=== PATIENT | male | born 1940 | race Caucasian/White ===

== ENCOUNTER 2017-07-27 20:54 | Emergency (ER) | payer MEDICARE ==
[2017-07-27 21:45] LABS: BASOPHILS % (AUTO) 0.3 % (0.0-5.0); EOSINOPHILS % (AUTO) 0.6 % (0.0-8.0); HEMATOCRIT 43.1 % (42-54); LYMPHOCYTES % (AUTO) 12.7 % (21.0-51.0); MEAN CORPUSCULAR HEMOGLOBIN 31.7 pg (27.0-33.0); MEAN CORPUSCULAR HGB CONC 34.1 g/dL (32.0-36.0); MEAN CORPUSCULAR VOLUME 92.9 fL (79-99); MONOCYTES % (AUTO) 6.7 % (3.0-13.0); NEUTROPHILS % (AUTO) 79.7 % (40.0-77.0); PLATELET COUNT (AUTO) 178 K/uL (130-400); RED BLOOD CELL COUNT(AUTO) 4.65 MIL/uL (4.50-6.20); RED CELL DISTRIBUTION WIDTH 13.4 % (11.0-15.5); WHITE BLOOD COUNT (AUTO) 7.7 K/uL (4.8-10.8)
[2017-07-27 22:00] LABS: CREATININE 0.6 mg/dL (0.5-1.5); POTASSIUM 4.1 mmol/L (3.5-5.1)
[2017-07-27 22:05] LABS: ALBUMIN 3.4 g/dL (3.5-5.0); BILIRUBIN,TOTAL 1.1 mg/dL (0.2-1.0); TOTAL PROTEIN, SERUM 7.3 g/dL (6.0-8.3)
[2017-07-27 23:40] LABS: APPEARANCE,URINE Clear (CLEAR); BILIRUBIN,URINE Negative (NEGATIVE); COLOR,URINE Yellow (YELLOW); GLUCOSE, URINE (UA) Negative (NEGATIVE); KETONES,URINE 15 mg/dL (NEGATIVE); LEUKOCYTE ESTERASE ,URINE Moderate (NEGATIVE); NITRATE,URINE Negative (NEGATIVE); OCCULT BLOOD,URINE Negative (NEGATIVE); PH,URINE 5.5 (5.0-8.0); PROTEIN,URINE Negative (NEGATIVE)
[2017-07-27 23:52] LABS: BACTERIA,URINE Rare /HPF (None Seen); MUCUS,URINE Few LPF (None Seen); RBC,URINE 0-1 /HPF (0-1); SQUAMOUS EPITHELIAL CELL,UR Few /LPF (0-2)
[2017-07-28] MEDS ORDERED: MORPHINE SULFATE 4 MG/1ML SYG ONE (00:23)
== END 2017-07-28 01:40 | disposition home or self-care (01) ==
LOC: EDH 20:54
DX: K80.50 Calculus of bile duct without cholangitis or cholecystitis without obstruction (principal); J44.9 Chronic obstructive pulmonary disease, unspecified; K21.9 Gastro-esophageal reflux disease without esophagitis; I25.2 Old myocardial infarction; Z86.73 Personal history of transient ischemic attack (TIA), and cerebral infarction without residual deficits; Z98.890 Other specified postprocedural states
CPT/HCPCS: 36415; 71045; 74176; 76705; 80053; 81001; 82150; 83690; 84484; 85025; 93005; 96374; 99285; J2270

== ENCOUNTER 2017-08-03 17:44 | Inpatient (IN) | payer MEDICARE ==
[~2017-08-03] VITALS: Ht 182.9 cm; Wt 88.6 kg
[2017-08-03] MEDS ORDERED: SODIUM CHLORIDE 0.9% 500ML 500 ML IV ONE (17:48)
[2017-08-03] MEDS ORDERED: ACETAMINOPHEN EXTRA STRENGTH 500 MG TABLET ONE (17:48)
[2017-08-03] MEDS ORDERED: METOPROLOL TARTRATE 1 MG/ML 5ML VIAL IV ONE ×2 (17:52→19:44)
[2017-08-03 17:58] LABS: HEMATOCRIT 43.3 % (42-54); MEAN CORPUSCULAR HEMOGLOBIN 31.1 pg (27.0-33.0); MEAN CORPUSCULAR HGB CONC 34.2 g/dL (32.0-36.0); NUCLEATED RED BLOOD CELLS 0.1 % (0.0-0.19); PLATELET COUNT (AUTO) 211 K/uL (130-400); RED BLOOD CELL COUNT(AUTO) 4.76 MIL/uL (4.50-6.20); RED CELL DISTRIBUTION WIDTH 13.4 % (11.0-15.5); WHITE BLOOD COUNT (AUTO) 5.4 K/uL (4.8-10.8)
[2017-08-03] MEDS ORDERED: ALBUTEROL SULFATE 0.083% 2.5 MG/3 ML INH IH ONE (17:58)
[2017-08-03] MEDS ORDERED: MEROPENEM 1 GM VIAL ONE (18:05)
[2017-08-03 18:07] LABS: INR 1.41 (0.85-1.15); PARTIAL THROMBOPLASTIN TIME 28.7 SEC (26.3-35.5); PROTHROMBIN TIME 14.7 SEC (9.6-11.6)
[2017-08-03 18:23] LABS: ALANINE AMINOTRANSFERASE 108 U/L (12-78); ALBUMIN 2.5 g/dL (3.5-5.0); ASPARTATE AMINOTRANSFERASE 301 U/L (10-37); BILIRUBIN,TOTAL 3.8 mg/dL (0.2-1.0); CARBON DIOXIDE 26 mmol/L (21-32); CREATINE KINASE MB < 0.5 ng/mL (0.5-3.6); CREATINE KINASE, TOTAL 41 U/L (21-232); CREATININE 1.1 mg/dL (0.5-1.5); GLOMERULAR FILTR. RATE CALC 69 mL/min (>60); GLUCOSE,RANDOM 120 mg/dL (70-105); MYOGLOBIN 126 ng/mL (10-92); POTASSIUM 3.3 mmol/L (3.5-5.1); SODIUM SERUM 126 mmol/L (136-145); TOTAL PROTEIN, SERUM 6.7 g/dL (6.0-8.3); TROPONIN I < 0.04 ng/mL (0.00-0.06); UREA NITROGEN, BLOOD 10 mg/dL (7-18)
[2017-08-03 18:24] LABS: BAND NEUTROPHILS % (MANUAL) 32 % (0-2); LYMPHOCYTES % (MANUAL) 4 % (22-44); METAMYELOCYTES % 3 % (0-0); REACTIVE LYMPHOCYTES 6 % (0-0); SEGMENTED NEUTROPHILS % 55 % (40-70)
[2017-08-03 18:25] LABS: MAN.DIFF COMMENT-IMPRESSION MANUAL DIFFERENTIAL
[2017-08-03 18:26] LABS: ABG BASE EXCESS 1.5 mmol/L (-2.0-3.0); ABG HCO3 24.1 mmol/L (21.0-28.0); ABG OXYGEN SATURATION 92.2 % (95.0-99.0); ABG PCO2 32 mmHg (35-48)
[2017-08-03 18:26] LABS: CHLORIDE 89 mmol/L (101-111)
[2017-08-03 18:51] LABS: APPEARANCE,URINE Clear (CLEAR); BILIRUBIN,URINE Small (NEGATIVE); COLOR,URINE Dark Yellow (YELLOW); GLUCOSE, URINE (UA) Negative (NEGATIVE); KETONES,URINE Trace mg/dL (NEGATIVE); LEUKOCYTE ESTERASE ,URINE Trace (NEGATIVE); NITRATE,URINE Negative (NEGATIVE); OCCULT BLOOD,URINE Negative (NEGATIVE); PH,URINE 6.5 (5.0-8.0); PROTEIN,URINE Negative (NEGATIVE)
[2017-08-03 19:09] LABS: BACTERIA,URINE Few /HPF (None Seen); RBC,URINE None Seen /HPF (0-1)
[2017-08-03] MEDS ORDERED: NOREPINEPHRINE BITARTRATE 1 MG/1 ML ML IV ONE ×2 (20:49→23:38)
[2017-08-03] MEDS ORDERED: SODIUM CHLORIDE 0.9% 250 ML IV ONE ×2 (20:50→23:39)
[2017-08-04] VITALS (27 sets, daily range): BP systolic 94–128; BP diastolic 47–81
[2017-08-04] MEDS ORDERED: SODIUM CHLORIDE 0.9% 1000ML 1,000 ML IV SCH (00:03)
[2017-08-04] MEDS ORDERED: MORPHINE SULFATE 2 MG/ML 1ML SYG IV PRN (00:15)
[2017-08-04] MEDS ORDERED: ONDANSETRON HCL 4 MG/2 ML VIAL IV PRN (00:15)
[2017-08-04] MEDS ORDERED: ACETAMINOPHEN 325 MG TAB PO PRN (00:15)
[2017-08-04] MEDS: IPRATROPIUM/ALBUTEROL SULFATE 3 ML SOLUTION IH SCH ×6 (02:06→22:08)
[2017-08-04] MEDS: SODIUM CHLORIDE 0.9% 1000ML 1,000 ML IV SCH ×4 (02:37→16:21)
[2017-08-04] MEDS: MEROPENEM 1 GM VIAL IVP SCH ×4 (02:38→23:54)
[2017-08-04 04:03] LABS: ABG BASE EXCESS -7.9 mmol/L (-2.0-3.0); ABG HCO3 16.2 mmol/L (21.0-28.0); ABG OXYGEN SATURATION 97.4 % (95.0-99.0); ABG PCO2 30 mmHg (35-48)
[2017-08-04 04:06] LABS: ALBUMIN 1.9 g/dL (3.5-5.0); BILIRUBIN,TOTAL 3.8 mg/dL (0.2-1.0); CREATININE 1.1 mg/dL (0.5-1.5); MAGNESIUM 1.1 mg/dL (1.80-2.40); PHOSPHORUS 3.3 mg/dL (2.5-4.9); TOTAL PROTEIN, SERUM 5.1 g/dL (6.0-8.3)
[2017-08-04 04:24] LABS: BASOPHILS % (AUTO) 0.3 % (0.0-5.0); HEMATOCRIT 36.8 % (42-54); LYMPHOCYTES % (AUTO) 1.1 % (21.0-51.0); MEAN CORPUSCULAR HGB CONC 33.7 g/dL (32.0-36.0); MEAN CORPUSCULAR VOLUME 91.9 fL (79-99); MONOCYTES % (AUTO) 1.8 % (3.0-13.0); NEUTROPHILS % (AUTO) 96.8 % (40.0-77.0); PLATELET COUNT (AUTO) 251 K/uL (130-400); RED CELL DISTRIBUTION WIDTH 13.6 % (11.0-15.5)
[2017-08-04 04:36] LABS: WHITE BLOOD COUNT (AUTO) 40.8 K/uL (4.8-10.8)
[2017-08-04 04:50] LABS: POTASSIUM 2.9 mmol/L (3.5-5.1)
[2017-08-04 06:04] LABS: BAND NEUTROPHILS % (MANUAL) 33 % (0-2); MAN.DIFF COMMENT-IMPRESSION MANUAL DIFFERENTIAL; METAMYELOCYTES % 10 % (0-0); MYELOCYTES % 3 % (0-0); PLATELET MORPHOLOGY COMMENT ADEQUATE; SEGMENTED NEUTROPHILS % 54 % (40-70)
[2017-08-04] MEDS ORDERED: NOREPINEPHRINE 4MG/NS 250ML 250 ML IV SCH (08:15)
[2017-08-04] MEDS ORDERED: POTASSIUM CHLORIDE 10% ELIXIR 20 MEQ/15 ML UDCUP PO PRN (08:15)
[2017-08-04] MEDS ORDERED: METOPROLOL TARTRATE 25 MG TAB PO SCH (09:00)
[2017-08-04] MEDS ORDERED: LIDOCAINE HCL 1% 20 ML VIAL ONE (09:32)
[2017-08-04] MEDS ORDERED: ISOVUE-300 100 ML VIAL IV ONE (09:34)
[2017-08-04] MEDS ORDERED: MEPERIDINE-PF 25 MG/ML SYG ONE (09:36)
[2017-08-04] MEDS: FAMOTIDINE/PF 20 MG/2 ML VIAL IV SCH ×2 (10:37→20:14)
[2017-08-04] MEDS: LIDOCAINE HCL-MPF 1% 2ML VIAL IVP PRN ×3 (10:37→20:14)
[2017-08-04] MEDS: MAGNESIUM 2GM PREMIX 50ML 50 ML IV PRN (10:37)
[2017-08-04] MEDS: POTASSIUM CHLORIDE 20MEQ/100ML 100 ML IV PRN ×3 (10:38→20:14)
[2017-08-04] MEDS ORDERED: TYL3 PO (11:46)
[2017-08-04] MEDS ORDERED: MULT-1224 PO (11:46)
[2017-08-04] MEDS ORDERED: OMEP20CA10 PO (11:46)
[2017-08-04] MEDS ORDERED: FLUT15.88 NS (11:46)
[2017-08-04] MEDS ORDERED: MOME0.13 IH (11:46)
[2017-08-04] MEDS ORDERED: ASPI81TA40 PO (11:46)
[2017-08-04] MEDS ORDERED: ROPI0.5T5 PO (11:46)
[2017-08-04] MEDS ORDERED: VIT1CAPS47 PO (11:46)
[2017-08-04] MEDS ORDERED: FLUT250D3 IH (11:46)
[2017-08-04] MEDS ORDERED: APIX5TAB4 PO (11:46)
[2017-08-04] MEDS ORDERED: ALBU2.5V2 IH (11:46)
[2017-08-04] MEDS ORDERED: DOXA8TAB81 PO (11:46)
[2017-08-04] MEDS ORDERED: CHOL200013 PO (11:46)
[2017-08-04] MEDS: ENOXAPARIN SODIUM 100 MG/1 ML SQ SCH (20:16)
[2017-08-05] VITALS (20 sets, daily range): BP systolic 89–140; BP diastolic 43–101
[2017-08-05] MEDS: SODIUM CHLORIDE 0.9% 1000ML 1,000 ML IV SCH ×2 (01:59→12:16)
[2017-08-05] MEDS: IPRATROPIUM/ALBUTEROL SULFATE 3 ML SOLUTION IH SCH ×6 (02:01→21:51)
[2017-08-05 04:02] LABS: BASOPHILS % (AUTO) 0.1 % (0.0-5.0); EOSINOPHILS % (AUTO) 0.1 % (0.0-8.0); HEMATOCRIT 30.9 % (42-54); MEAN CORPUSCULAR HEMOGLOBIN 32.1 pg (27.0-33.0); MEAN CORPUSCULAR VOLUME 91.8 fL (79-99); MONOCYTES % (AUTO) 3.8 % (3.0-13.0); PLATELET COUNT (AUTO) 208 K/uL (130-400); RED BLOOD CELL COUNT(AUTO) 3.37 MIL/uL (4.50-6.20); RED CELL DISTRIBUTION WIDTH 13.6 % (11.0-15.5); WHITE BLOOD COUNT (AUTO) 21.3 K/uL (4.8-10.8)
[2017-08-05 04:15] LABS: ALBUMIN 1.6 g/dL (3.5-5.0); BILIRUBIN,TOTAL 1.3 mg/dL (0.2-1.0); CREATININE 0.8 mg/dL (0.5-1.5); MAGNESIUM 1.6 mg/dL (1.80-2.40); POTASSIUM 3.2 mmol/L (3.5-5.1); TOTAL PROTEIN, SERUM 4.6 g/dL (6.0-8.3)
[2017-08-05] MEDS: LIDOCAINE HCL-MPF 1% 2ML VIAL IVP PRN (04:34)
[2017-08-05] MEDS: POTASSIUM CHLORIDE 20MEQ/100ML 100 ML IV PRN ×2 (04:34→09:52)
[2017-08-05] MEDS: MAGNESIUM 2GM PREMIX 50ML 50 ML IV PRN (09:51)
[2017-08-05] MEDS: FAMOTIDINE/PF 20 MG/2 ML VIAL IV SCH ×2 (09:53→20:07)
[2017-08-05] MEDS: AMIODARONE HCL 200 MG TABLET PO SCH ×2 (09:53→20:07)
[2017-08-05] MEDS: MEROPENEM 1 GM VIAL IVP SCH (09:53)
[2017-08-05] MEDS: ENOXAPARIN SODIUM 100 MG/1 ML SQ SCH ×2 (09:54→20:07)
[2017-08-05] MEDS: MAGNESIUM 2GM PREMIX 50ML 50 ML IV SCH (13:45)
[2017-08-05] MEDS ORDERED: CEFTRIAXONE 2GM+NS 100ML 100 ML IV SCH (16:00)
[2017-08-05] MEDS: CEFTRIAXONE SODIUM 2 GM VIAL IVP SCH (16:57)
[2017-08-06 04:08] LABS: BASOPHILS % (AUTO) 0.2 % (0.0-5.0); EOSINOPHILS % (AUTO) 0.4 % (0.0-8.0); HEMATOCRIT 37.7 % (42-54); LYMPHOCYTES % (AUTO) 7.3 % (21.0-51.0); MEAN CORPUSCULAR HEMOGLOBIN 31.1 pg (27.0-33.0); MEAN CORPUSCULAR HGB CONC 34.5 g/dL (32.0-36.0); MEAN CORPUSCULAR VOLUME 90.2 fL (79-99); MONOCYTES % (AUTO) 3.1 % (3.0-13.0); PLATELET COUNT (AUTO) 242 K/uL (130-400); RED BLOOD CELL COUNT(AUTO) 4.18 MIL/uL (4.50-6.20); RED CELL DISTRIBUTION WIDTH 13.8 % (11.0-15.5); WHITE BLOOD COUNT (AUTO) 13.1 K/uL (4.8-10.8)
[2017-08-06 04:16] LABS: CREATININE 0.8 mg/dL (0.5-1.5); MAGNESIUM 1.7 mg/dL (1.80-2.40); PHOSPHORUS 1.4 mg/dL (2.5-4.9); POTASSIUM 3.4 mmol/L (3.5-5.1)
[2017-08-06] MEDS: POTASSIUM CHLORIDE 20 MEQ ERTAB PO PRN ×2 (05:38→09:11)
[2017-08-06] MEDS: IPRATROPIUM/ALBUTEROL SULFATE 3 ML SOLUTION IH SCH ×5 (06:26→21:41)
[2017-08-06 07:42] VITALS: BP 123/75
[2017-08-06] MEDS ORDERED: AMIODARONE HCL 150 MG in DEXTROSE 5%-WATER 100 ML IV SCH (07:45)
[2017-08-06] MEDS ORDERED: AMIODARONE HCL 900 MG in DEXTROSE 5%-WATER 500 ML IV SCH (07:45)
[2017-08-06] MEDS: AMIODARONE HCL 200 MG TABLET PO SCH ×2 (09:11→21:55)
[2017-08-06] MEDS: FAMOTIDINE/PF 20 MG/2 ML VIAL IV SCH ×2 (09:11→21:55)
[2017-08-06] MEDS: MAGNESIUM 2GM PREMIX 50ML 50 ML IV SCH (09:12)
[2017-08-06] MEDS: ENOXAPARIN SODIUM 100 MG/1 ML SQ SCH ×2 (09:13→21:56)
[2017-08-06 11:15] VITALS: BP 119/61
[2017-08-06 16:22] VITALS: BP 104/61
[2017-08-06] MEDS: CEFTRIAXONE SODIUM 2 GM VIAL IVP SCH (17:44)
[2017-08-06 19:41] VITALS: BP 119/62
[2017-08-07 03:49] VITALS: BP 129/68
[2017-08-07] MEDS: IPRATROPIUM/ALBUTEROL SULFATE 3 ML SOLUTION IH SCH ×5 (06:56→21:59)
[2017-08-07 07:42] VITALS: BP 127/73
[2017-08-07 11:31] VITALS: BP 93/61
[2017-08-07] MEDS: MAGNESIUM 2GM PREMIX 50ML 50 ML IV SCH (13:45)
[2017-08-07] MEDS: CEFTRIAXONE SODIUM 2 GM VIAL IVP SCH (15:47)
[2017-08-07] MEDS: FAMOTIDINE/PF 20 MG/2 ML VIAL IV SCH ×2 (15:48→20:21)
[2017-08-07] MEDS: AMIODARONE HCL 200 MG TABLET PO SCH ×2 (15:48→20:21)
[2017-08-07 16:30] VITALS: BP 100/62
[2017-08-07] MEDS: APIXABAN 5 MG TABLET PO SCH (20:21)
[2017-08-07 20:29] VITALS: BP 126/71
[2017-08-08 03:49] LABS: HEMATOCRIT 36.9 % (42-54); MEAN CORPUSCULAR HEMOGLOBIN 30.9 pg (27.0-33.0); MEAN CORPUSCULAR VOLUME 90.7 fL (79-99); NUCLEATED RED BLOOD CELLS 0.1 % (0.0-0.19); PLATELET COUNT (AUTO) 233 K/uL (130-400); RED BLOOD CELL COUNT(AUTO) 4.06 MIL/uL (4.50-6.20); RED CELL DISTRIBUTION WIDTH 13.7 % (11.0-15.5)
[2017-08-08 03:56] LABS: ALBUMIN 1.7 g/dL (3.5-5.0); BILIRUBIN,TOTAL 0.5 mg/dL (0.2-1.0); CREATININE 0.7 mg/dL (0.5-1.5); MAGNESIUM 1.4 mg/dL (1.80-2.40); POTASSIUM 3.6 mmol/L (3.5-5.1); TOTAL PROTEIN, SERUM 4.8 g/dL (6.0-8.3)
[2017-08-08] MEDS: IPRATROPIUM/ALBUTEROL SULFATE 3 ML SOLUTION IH SCH ×5 (06:39→21:52)
[2017-08-08 07:44] VITALS: BP 127/60
[2017-08-08] MEDS ORDERED: APIXABAN 2.5 MG TABLET PO ONE (08:37)
[2017-08-08] MEDS: APIXABAN 5 MG TABLET PO SCH ×2 (09:00→21:49)
[2017-08-08] MEDS: AMIODARONE HCL 200 MG TABLET PO SCH (09:06)
[2017-08-08] MEDS: FAMOTIDINE/PF 20 MG/2 ML VIAL IV SCH ×2 (09:06→21:49)
[2017-08-08] MEDS: POTASSIUM CHLORIDE 20 MEQ ERTAB PO PRN (09:11)
[2017-08-08 11:32] VITALS: BP 111/61
[2017-08-08] MEDS: DILTIAZEM HCL 120 MG CAP.SR.24H PO SCH (11:44)
[2017-08-08] MEDS: MAGNESIUM 2GM PREMIX 50ML 50 ML IV SCH (13:45)
[2017-08-08 16:17] VITALS: BP 113/59
[2017-08-08] MEDS: FUROSEMIDE 40 MG TABLET PO SCH (17:41)
[2017-08-08] MEDS: CEFTRIAXONE SODIUM 2 GM VIAL IVP SCH (17:41)
[2017-08-08 19:36] VITALS: BP 128/73
[2017-08-08] MEDS: METRONIDAZOLE 500MG/100ML BAG 100 ML IV SCH (21:49)
[2017-08-08 23:18] VITALS: BP 121/57
[2017-08-09 03:35] VITALS: BP 124/67
[2017-08-09 04:58] LABS: HEMATOCRIT 37.7 % (42-54); MEAN CORPUSCULAR HEMOGLOBIN 30.7 pg (27.0-33.0); MEAN CORPUSCULAR HGB CONC 33.7 g/dL (32.0-36.0); MEAN CORPUSCULAR VOLUME 91.1 fL (79-99); PLATELET COUNT (AUTO) 242 K/uL (130-400); RED BLOOD CELL COUNT(AUTO) 4.14 MIL/uL (4.50-6.20); RED CELL DISTRIBUTION WIDTH 14.1 % (11.0-15.5)
[2017-08-09 05:00] LABS: CREATININE 0.7 mg/dL (0.5-1.5); POTASSIUM 3.8 mmol/L (3.5-5.1)
[2017-08-09 05:25] LABS: B-TYPE NATRIURETIC PEPTIDE 173 pg/mL (0-100)
[2017-08-09] MEDS: IPRATROPIUM/ALBUTEROL SULFATE 3 ML SOLUTION IH SCH ×5 (06:37→21:58)
[2017-08-09] MEDS: METRONIDAZOLE 500MG/100ML BAG 100 ML IV SCH ×3 (06:42→22:42)
[2017-08-09 07:00] VITALS: BP 91/55
[2017-08-09] MEDS: DILTIAZEM HCL 120 MG CAP.SR.24H PO SCH (08:15)
[2017-08-09] MEDS: APIXABAN 5 MG TABLET PO SCH ×2 (08:15→20:21)
[2017-08-09] MEDS: FUROSEMIDE 40 MG TABLET PO SCH (08:16)
[2017-08-09] MEDS: FAMOTIDINE/PF 20 MG/2 ML VIAL IV SCH ×2 (08:16→20:21)
[2017-08-09] MEDS: MAGNESIUM 2GM PREMIX 50ML 50 ML IV SCH (10:53)
[2017-08-09 11:32] VITALS: BP 83/44
[2017-08-09] MEDS: CEFTRIAXONE SODIUM 2 GM VIAL IVP SCH (14:00)
[2017-08-09 16:41] VITALS: BP 99/63
[2017-08-09 20:00] VITALS: BP 114/64
[2017-08-09] MEDS: ZOLPIDEM TARTRATE 5 MG TAB PO PRN (20:21)
[2017-08-09] MEDS: LACTULOSE 20 GM/30 ML UDCUP PO SCH (21:00)
[2017-08-10] VITALS: BP 118/62
[2017-08-10] MEDS: IPRATROPIUM/ALBUTEROL SULFATE 3 ML SOLUTION IH SCH ×6 (02:00→21:45)
[2017-08-10] MEDS: METRONIDAZOLE 500MG/100ML BAG 100 ML IV SCH ×3 (06:01→22:09)
[2017-08-10] MEDS: LACTULOSE 20 GM/30 ML UDCUP PO SCH ×4 (06:02→20:32)
[2017-08-10 07:55] VITALS: BP 113/55
[2017-08-10] MEDS: MEGESTROL 400 MG/10 ML UDCUP PO SCH (08:41)
[2017-08-10] MEDS: FAMOTIDINE/PF 20 MG/2 ML VIAL IV SCH ×2 (08:42→20:31)
[2017-08-10] MEDS: FUROSEMIDE 40 MG TABLET PO SCH (08:42)
[2017-08-10] MEDS: APIXABAN 5 MG TABLET PO SCH ×2 (11:16→20:31)
[2017-08-10 11:53] VITALS: BP 92/52
[2017-08-10] MEDS: MAGNESIUM 2GM PREMIX 50ML 50 ML IV SCH (13:45)
[2017-08-10] MEDS: CEFTRIAXONE SODIUM 2 GM VIAL IVP SCH (15:26)
[2017-08-10 16:30] VITALS: BP 107/52
[2017-08-10 19:56] VITALS: BP 103/50
[2017-08-10] MEDS: ZOLPIDEM TARTRATE 5 MG TAB PO PRN (20:31)
[2017-08-10 23:59] VITALS: BP 117/59
[2017-08-11] MEDS: IPRATROPIUM/ALBUTEROL SULFATE 3 ML SOLUTION IH SCH ×4 (01:45→14:03)
[2017-08-11 04:31] VITALS: BP 108/56
[2017-08-11 05:46] LABS: HEMATOCRIT 38.5 % (42-54); MEAN CORPUSCULAR HEMOGLOBIN 31.6 pg (27.0-33.0); MEAN CORPUSCULAR HGB CONC 34.5 g/dL (32.0-36.0); MEAN CORPUSCULAR VOLUME 91.6 fL (79-99); NUCLEATED RED BLOOD CELLS 0.1 % (0.0-0.19); PLATELET COUNT (AUTO) 286 K/uL (130-400); RED BLOOD CELL COUNT(AUTO) 4.21 MIL/uL (4.50-6.20); RED CELL DISTRIBUTION WIDTH 14.1 % (11.0-15.5); WHITE BLOOD COUNT (AUTO) 7.7 K/uL (4.8-10.8)
[2017-08-11 06:02] LABS: CREATININE 0.7 mg/dL (0.5-1.5); POTASSIUM 3.5 mmol/L (3.5-5.1)
[2017-08-11] MEDS: METRONIDAZOLE 500MG/100ML BAG 100 ML IV SCH (06:53)
[2017-08-11 07:28] VITALS: BP 97/52
[2017-08-11 07:56] LABS: EOSINOPHILS % (MANUAL) 1 % (1-6); LYMPHOCYTES % (MANUAL) 12 % (22-44); MAN.DIFF COMMENT-IMPRESSION MANUAL DIFFERENTIAL; MONOCYTES % (MANUAL) 10 % (2-9); PLATELET MORPHOLOGY COMMENT ADEQUATE; REACTIVE LYMPHOCYTES 4 % (0-0); SEGMENTED NEUTROPHILS % 73 % (40-70)
[2017-08-11] MEDS: FAMOTIDINE/PF 20 MG/2 ML VIAL IV SCH (09:56)
[2017-08-11] MEDS: FUROSEMIDE 40 MG TABLET PO SCH (09:56)
[2017-08-11] MEDS: MEGESTROL 400 MG/10 ML UDCUP PO SCH (09:56)
[2017-08-11] MEDS: APIXABAN 5 MG TABLET PO SCH ×2 (09:56→15:49)
[2017-08-11 11:18] VITALS: BP 98/52
[2017-08-11] MEDS: MAGNESIUM 2GM PREMIX 50ML 50 ML IV SCH (13:45)
[2017-08-11] MEDS ORDERED: METRONIDAZOLE 500 MG TABLET PO SCH (15:30)
[2017-08-11] MEDS: CEFTRIAXONE SODIUM 2 GM VIAL IVP SCH (15:49)
[2017-08-12] MEDS ORDERED: PANTOPRAZOLE SODIUM 40 MG TABLET.DR PO SCH (09:00)
== END 2017-08-11 18:05 | DRG 871 ==
LOC: EDH 17:44 → EDHIP 20:15 → 2BH 08-04 01:42 → 2DH 08-05 18:07
PROVIDERS: ADMIT Family Medicine; ATTEND Family Medicine
PROC: 0F9430Z Drainage of Gallbladder with Drainage Device, Percutaneous Approach (ICD-10-PCS; principal; 2017-08-04)
DX: A41.51 Sepsis due to Escherichia coli [E. coli] (principal); K85.90 Acute pancreatitis without necrosis or infection, unspecified; J96.01 Acute respiratory failure with hypoxia; R65.21 Severe sepsis with septic shock; K80.66 Calculus of gallbladder and bile duct with acute and chronic cholecystitis without obstruction; E83.42 Hypomagnesemia; I47.1 Supraventricular tachycardia; E86.0 Dehydration; I48.91 Unspecified atrial fibrillation; I95.89 Other hypotension; J44.0 Chronic obstructive pulmonary disease with (acute) lower respiratory infection; N39.0 Urinary tract infection, site not specified; D64.9 Anemia, unspecified; E66.9 Obesity, unspecified; E86.1 Hypovolemia; E87.6 Hypokalemia; N40.0 Benign prostatic hyperplasia without lower urinary tract symptoms; R74.0 Nonspecific elevation of levels of transaminase and lactic acid dehydrogenase [LDH]; R26.2 Difficulty in walking, not elsewhere classified; I10 Essential (primary) hypertension; I25.10 Atherosclerotic heart disease of native coronary artery without angina pectoris; K59.00 Constipation, unspecified; K21.9 Gastro-esophageal reflux disease without esophagitis; Z68.26 Body mass index [BMI] 26.0-26.9, adult; Z86.73 Personal history of transient ischemic attack (TIA), and cerebral infarction without residual deficits; I25.2 Old myocardial infarction; Z79.01 Long term (current) use of anticoagulants; Z87.891 Personal history of nicotine dependence; Z90.49 Acquired absence of other specified parts of digestive tract; Z90.79 Acquired absence of other genital organ(s); Z99.81 Dependence on supplemental oxygen; Z79.899 Other long term (current) drug therapy; Z98.49 Cataract extraction status, unspecified eye
CPT/HCPCS: 10030; 36415; 36600; 47490; 71045; 76705; 80048; 80053; 81001; 82550; 82553; 82803; 82948; 83605; 83690; 83735; 83874; 83880; 84100; 84484; 85007; 85025; 85027; 85610; 85730; 87040; 87070; 87076; 87077; 87088; 87186; 87804; 88313; 93005; 93306; 93970; 94640; 94660; 94664; 99291; 99292; A4218; A4344; C1769; J0282; J0696; J1644; J1650; J2175; J2185; J3475; J3480; J3490; J7030; J7040; J7060; Q9967

== ENCOUNTER 2017-08-26 10:39 | Inpatient (IN) | payer MEDICARE ==
[~2017-08-26] VITALS: Ht 182.9 cm; Wt 80.7 kg
[~2017-08-26 10:39] MED LIST: ALBU2.5V2 IH; APIX5TAB4 PO; ASPI81TA40 PO; CHOL200013 PO; DOXA8TAB81 PO; FLUT15.88 NS; FLUT250D3 IH; MOME0.13 IH; MULT-1224 PO; OMEP20CA10 PO; ROPI0.5T5 PO; TYL3 PO; VIT1CAPS47 PO
[2017-08-26] MEDS ORDERED: ACETAMINOPHEN 325 MG TAB ONE (11:31)
[2017-08-26] MEDS ORDERED: KETOROLAC TROMETHAMINE 15MG/ML ONE (11:31)
[2017-08-26] MEDS ORDERED: ONDANSETRON HCL MDV 20ML 2 MG/ML VIAL ONE (11:31)
[2017-08-26] MEDS ORDERED: SODIUM CHLORIDE 0.9% 500ML 500 ML IV ONE (11:32)
[2017-08-26 11:40] LABS: BASOPHILS % (AUTO) 0.6 % (0.0-5.0); HEMATOCRIT 40.7 % (42-54); LYMPHOCYTES % (AUTO) 4.5 % (21.0-51.0); MEAN CORPUSCULAR HEMOGLOBIN 30.7 pg (27.0-33.0); MEAN CORPUSCULAR HGB CONC 34.5 g/dL (32.0-36.0); MONOCYTES % (AUTO) 7.3 % (3.0-13.0); NEUTROPHILS % (AUTO) 87.6 % (40.0-77.0); PLATELET COUNT (AUTO) 258 K/uL (130-400); RED BLOOD CELL COUNT(AUTO) 4.57 MIL/uL (4.50-6.20); RED CELL DISTRIBUTION WIDTH 14.8 % (11.0-15.5); WHITE BLOOD COUNT (AUTO) 13.3 K/uL (4.8-10.8)
[2017-08-26 11:50] LABS: CREATININE 0.8 mg/dL (0.5-1.5); POTASSIUM 3.7 mmol/L (3.5-5.1)
[2017-08-26 12:17] LABS: ALBUMIN 3.5 g/dL (3.5-5.0); BILIRUBIN,TOTAL 2.6 mg/dL (0.2-1.0); CREATINE KINASE MB 0.7 ng/mL (0.5-3.6); TOTAL PROTEIN, SERUM 7.2 g/dL (6.0-8.3)
[2017-08-26 12:21] LABS: INR 1.2 (0.85-1.15); PARTIAL THROMBOPLASTIN TIME 26.8 SEC (26.3-35.5); PROTHROMBIN TIME 12.6 SEC (9.6-11.6)
[2017-08-26] MEDS ORDERED: MEROPENEM 500 MG VIAL ONE ×2 (15:43→15:54)
[2017-08-26] MEDS ORDERED: SODIUM CHLORIDE 0.9% 50 ML IV ONE (15:45)
[2017-08-26 19:10] VITALS: BP 125/64
[2017-08-26] MEDS ORDERED: ONDANSETRON HCL MDV 20ML 2 MG/ML VIAL IVP PRN (21:45)
[2017-08-26] MEDS ORDERED: ACETAMINOPHEN 325 MG TAB PO PRN (21:45)
[2017-08-26] MEDS: MEROPENEM 500 MG VIAL IVP SCH (21:51)
[2017-08-26] MEDS: SODIUM CHLORIDE 0.9% 1000ML 1,000 ML IV SCH (21:52)
[2017-08-26 23:47] VITALS: BP 149/68
[2017-08-27] VITALS (14 sets, daily range): BP systolic 133–160; BP diastolic 55–78
[2017-08-27 05:18] LABS: HEMATOCRIT 34.7 % (42-54); MEAN CORPUSCULAR HEMOGLOBIN 31.6 pg (27.0-33.0); MEAN CORPUSCULAR HGB CONC 35.3 g/dL (32.0-36.0); MEAN CORPUSCULAR VOLUME 89.5 fL (79-99); PLATELET COUNT (AUTO) 239 K/uL (130-400); RED BLOOD CELL COUNT(AUTO) 3.87 MIL/uL (4.50-6.20); RED CELL DISTRIBUTION WIDTH 14.6 % (11.0-15.5); WHITE BLOOD COUNT (AUTO) 8.5 K/uL (4.8-10.8)
[2017-08-27 05:30] LABS: ALBUMIN 2.6 g/dL (3.5-5.0); BILIRUBIN,DIRECT 1.2 mg/dL (0.0-0.3); CREATININE 0.9 mg/dL (0.5-1.5); TOTAL PROTEIN, SERUM 6.1 g/dL (6.0-8.3)
[2017-08-27] MEDS: MEROPENEM 500 MG VIAL IVP SCH ×3 (05:57→22:09)
[2017-08-27] MEDS ORDERED: MORPHINE SULFATE 4 MG/1ML SYG ONE (06:00)
[2017-08-27] MEDS: SODIUM CHLORIDE 0.9% 1000ML 1,000 ML IV SCH ×3 (06:03→22:16)
[2017-08-27] MEDS ORDERED: ALBUTEROL SULFATE 0.083% 2.5 MG/3 ML INH IH PRN (11:30)
[2017-08-27] MEDS ORDERED: ISOVUE-370 50ML VIAL IV ONE (11:42)
[2017-08-27] MEDS ORDERED: APIXABAN 5 MG TABLET PO SCH (12:30)
[2017-08-27] MEDS ORDERED: PHENYLEPHRINE HCL 10 MG/ML 1ML VIAL IV ONE (12:31)
[2017-08-27] MEDS ORDERED: LIDOCAINE HCL 1% 20 ML VIAL ONE (12:31)
[2017-08-27] MEDS ORDERED: PROPOFOL 1000 MG/100 ML 100 ML IV ONE (12:31)
[2017-08-27] MEDS: FLUTICASONE PROPIONATE 50MCG/SPRAY 16 GM BOTTLE NS SCH (14:54)
[2017-08-27] MEDS: METRONIDAZOLE 500MG/100ML BAG 100 ML IV SCH ×2 (14:54→22:10)
[2017-08-27 15:42] LABS: BASOPHILS % (AUTO) 0.6 % (0.0-5.0); EOSINOPHILS % (AUTO) 1.4 % (0.0-8.0); HEMATOCRIT 34.7 % (42-54); MEAN CORPUSCULAR HEMOGLOBIN 31.6 pg (27.0-33.0); MEAN CORPUSCULAR HGB CONC 34.9 g/dL (32.0-36.0); MEAN CORPUSCULAR VOLUME 90.5 fL (79-99); MONOCYTES % (AUTO) 8.7 % (3.0-13.0); NEUTROPHILS % (AUTO) 70.3 % (40.0-77.0); PLATELET COUNT (AUTO) 222 K/uL (130-400); RED BLOOD CELL COUNT(AUTO) 3.84 MIL/uL (4.50-6.20); RED CELL DISTRIBUTION WIDTH 14.5 % (11.0-15.5); WHITE BLOOD COUNT (AUTO) 7.1 K/uL (4.8-10.8)
[2017-08-27] MEDS: BUDESONIDE 0.5 MG/2 ML INH IH SCH (19:25)
[2017-08-27] MEDS: METOPROLOL TARTRATE 25 MG TAB PO SCH (20:26)
[2017-08-27] MEDS: ROPINIROLE HCL 1 MG TABLET PO SCH (20:27)
[2017-08-27] MEDS: PANTOPRAZOLE SODIUM 40 MG TABLET.DR PO SCH (20:27)
[2017-08-28 04:55] VITALS: BP 142/72
[2017-08-28 05:20] LABS: ALBUMIN 2.3 g/dL (3.5-5.0); BILIRUBIN,DIRECT 0.4 mg/dL (0.0-0.3); BILIRUBIN,TOTAL 1.4 mg/dL (0.2-1.0); CREATININE 0.7 mg/dL (0.5-1.5); POTASSIUM 3.4 mmol/L (3.5-5.1); TOTAL PROTEIN, SERUM 5.5 g/dL (6.0-8.3)
[2017-08-28] MEDS: MEROPENEM 500 MG VIAL IVP SCH ×3 (05:39→21:02)
[2017-08-28] MEDS: METRONIDAZOLE 500MG/100ML BAG 100 ML IV SCH ×3 (05:39→21:02)
[2017-08-28] MEDS: BUDESONIDE 0.5 MG/2 ML INH IH SCH ×2 (06:25→18:20)
[2017-08-28] MEDS: SODIUM CHLORIDE 0.9% 1000ML 1,000 ML IV SCH (06:38)
[2017-08-28] MEDS ORDERED: PANTOPRAZOLE SODIUM 40 MG TABLET.DR PO SCH (08:00)
[2017-08-28 08:12] VITALS: BP 130/73
[2017-08-28] MEDS: PANTOPRAZOLE SODIUM 40 MG TABLET.DR PO SCH ×2 (08:31→21:03)
[2017-08-28] MEDS: ROPINIROLE HCL 1 MG TABLET PO SCH ×2 (08:31→21:03)
[2017-08-28] MEDS: ASCORBIC ACID 500 MG TAB PO SCH (08:31)
[2017-08-28] MEDS: METOPROLOL TARTRATE 25 MG TAB PO SCH ×2 (08:31→21:03)
[2017-08-28] MEDS: FLUTICASONE PROPIONATE 50MCG/SPRAY 16 GM BOTTLE NS SCH (08:32)
[2017-08-28] MEDS: ENOXAPARIN SODIUM 80 MG/0.8 ML SQ SCH ×2 (08:32→21:04)
[2017-08-28] MEDS: ***HM***(Cholecalciferol (Vitamin D3) (Vitamin D3) 2,000 UNIT) PO SCH (08:33)
[2017-08-28] MEDS: ASPIRIN 81 MG EC TAB PO SCH (08:49)
[2017-08-28] MEDS ORDERED: POTASSIUM CHLORIDE 20MEQ/100ML 100 ML IV PRN (10:30)
[2017-08-28] MEDS ORDERED: LIDOCAINE HCL-MPF 1% 2ML VIAL IVP PRN (10:30)
[2017-08-28] MEDS ORDERED: POTASSIUM CHLORIDE 10% ELIXIR 20 MEQ/15 ML UDCUP PO PRN (10:30)
[2017-08-28 11:54] VITALS: BP 126/64
[2017-08-28] MEDS: MULTIVITAMIN WITH MINERALS TABLET PO SCH (13:10)
[2017-08-28] MEDS: DOXAZOSIN MESYLATE 2 MG TABLET PO SCH (13:10)
[2017-08-28] MEDS: POTASSIUM CHLORIDE 20 MEQ ERTAB PO PRN ×3 (13:10→17:55)
[2017-08-28 16:29] VITALS: BP 110/57
[2017-08-28 18:56] VITALS: BP 106/52
[2017-08-29] MEDS: MEROPENEM 500 MG VIAL IVP SCH ×3 (05:39→19:57)
[2017-08-29] MEDS: METRONIDAZOLE 500MG/100ML BAG 100 ML IV SCH ×3 (05:39→19:57)
[2017-08-29 06:00] VITALS: BP 124/66
[2017-08-29 06:12] LABS: BASOPHILS % (AUTO) 0.5 % (0.0-5.0); EOSINOPHILS % (AUTO) 2.5 % (0.0-8.0); HEMATOCRIT 31.8 % (42-54); LYMPHOCYTES % (AUTO) 38.3 % (21.0-51.0); MEAN CORPUSCULAR HEMOGLOBIN 32.5 pg (27.0-33.0); MEAN CORPUSCULAR HGB CONC 36.5 g/dL (32.0-36.0); MEAN CORPUSCULAR VOLUME 89.2 fL (79-99); MONOCYTES % (AUTO) 12.4 % (3.0-13.0); NEUTROPHILS % (AUTO) 46.3 % (40.0-77.0); PLATELET COUNT (AUTO) 227 K/uL (130-400); RED BLOOD CELL COUNT(AUTO) 3.57 MIL/uL (4.50-6.20); RED CELL DISTRIBUTION WIDTH 14.6 % (11.0-15.5); WHITE BLOOD COUNT (AUTO) 4.9 K/uL (4.8-10.8)
[2017-08-29] MEDS: BUDESONIDE 0.5 MG/2 ML INH IH SCH ×2 (06:15→19:20)
[2017-08-29 06:26] LABS: ALBUMIN 2.3 g/dL (3.5-5.0); BILIRUBIN,DIRECT 0.3 mg/dL (0.0-0.3); BILIRUBIN,TOTAL 0.9 mg/dL (0.2-1.0); CREATININE 0.7 mg/dL (0.5-1.5); POTASSIUM 3.9 mmol/L (3.5-5.1); TOTAL PROTEIN, SERUM 5.5 g/dL (6.0-8.3)
[2017-08-29 08:02] VITALS: BP 131/68
[2017-08-29] MEDS: ***HM***(Cholecalciferol (Vitamin D3) (Vitamin D3) 2,000 UNIT) PO SCH (09:00)
[2017-08-29] MEDS: ENOXAPARIN SODIUM 80 MG/0.8 ML SQ SCH ×2 (09:00→19:52)
[2017-08-29] MEDS: MULTIVITAMIN WITH MINERALS TABLET PO SCH (09:00)
[2017-08-29] MEDS: ROPINIROLE HCL 1 MG TABLET PO SCH ×2 (09:00→19:57)
[2017-08-29] MEDS: ASCORBIC ACID 500 MG TAB PO SCH (09:01)
[2017-08-29] MEDS: PANTOPRAZOLE SODIUM 40 MG TABLET.DR PO SCH ×2 (09:01→19:57)
[2017-08-29] MEDS: FLUTICASONE PROPIONATE 50MCG/SPRAY 16 GM BOTTLE NS SCH (09:01)
[2017-08-29] MEDS: METOPROLOL TARTRATE 25 MG TAB PO SCH ×2 (09:01→19:58)
[2017-08-29] MEDS: DOXAZOSIN MESYLATE 2 MG TABLET PO SCH (09:01)
[2017-08-29 11:28] VITALS: BP 102/61
[2017-08-29 11:43] LABS: INR 1.14 (0.85-1.15); PROTHROMBIN TIME 11.9 SEC (9.6-11.6)
[2017-08-29 16:23] VITALS: BP 122/63
[2017-08-29 20:07] VITALS: BP 130/69
[2017-08-30] VITALS (24 sets, daily range): BP systolic 101–161; BP diastolic 44–89
[2017-08-30 05:45] LABS: BASOPHILS % (AUTO) 0.6 % (0.0-5.0); EOSINOPHILS % (AUTO) 3.8 % (0.0-8.0); HEMATOCRIT 33.1 % (42-54); LYMPHOCYTES % (AUTO) 38.3 % (21.0-51.0); MEAN CORPUSCULAR HEMOGLOBIN 30.6 pg (27.0-33.0); MEAN CORPUSCULAR HGB CONC 34.4 g/dL (32.0-36.0); MONOCYTES % (AUTO) 13.7 % (3.0-13.0); NEUTROPHILS % (AUTO) 43.6 % (40.0-77.0); PLATELET COUNT (AUTO) 234 K/uL (130-400); RED BLOOD CELL COUNT(AUTO) 3.72 MIL/uL (4.50-6.20); RED CELL DISTRIBUTION WIDTH 15.1 % (11.0-15.5); WHITE BLOOD COUNT (AUTO) 4.7 K/uL (4.8-10.8)
[2017-08-30] MEDS: METRONIDAZOLE 500MG/100ML BAG 100 ML IV SCH ×3 (05:48→20:33)
[2017-08-30] MEDS: MEROPENEM 500 MG VIAL IVP SCH ×3 (05:48→20:33)
[2017-08-30 05:52] LABS: CREATININE 0.7 mg/dL (0.5-1.5); POTASSIUM 3.9 mmol/L (3.5-5.1)
[2017-08-30] MEDS: BUDESONIDE 0.5 MG/2 ML INH IH SCH ×2 (06:00→18:30)
[2017-08-30] MEDS: METOPROLOL TARTRATE 25 MG TAB PO SCH ×2 (06:44→20:34)
[2017-08-30] MEDS: PANTOPRAZOLE SODIUM 40 MG TABLET.DR PO SCH ×2 (09:00→20:34)
[2017-08-30] MEDS: ROPINIROLE HCL 1 MG TABLET PO SCH ×2 (09:00→20:33)
[2017-08-30] MEDS: ASCORBIC ACID 500 MG TAB PO SCH (09:00)
[2017-08-30] MEDS: MULTIVITAMIN WITH MINERALS TABLET PO SCH (09:00)
[2017-08-30] MEDS: DOXAZOSIN MESYLATE 2 MG TABLET PO SCH (09:00)
[2017-08-30] MEDS: ***HM***(Cholecalciferol (Vitamin D3) (Vitamin D3) 2,000 UNIT) PO SCH (09:00)
[2017-08-30] MEDS: FLUTICASONE PROPIONATE 50MCG/SPRAY 16 GM BOTTLE NS SCH (09:00)
[2017-08-30] MEDS ORDERED: LACTATED RINGERS 1000ML 1,000 ML IV ONE (11:17)
[2017-08-30] MEDS ORDERED: GLYCOPYRROLATE 0.2 MG/ML 5 ML VIAL ONE ×2 (12:03→13:19)
[2017-08-30] MEDS ORDERED: DEXAMETHASONE SOD PHOSPHATE 10MG/ML 1ML VIAL ONE (12:03)
[2017-08-30] MEDS ORDERED: LIDOCAINE PF 2% 5ML ABBOJECT ONE (12:03)
[2017-08-30] MEDS ORDERED: FENTANYL CITRATE PF 50 MCG/1 ML 2ML VIAL ONE ×2 (12:04→14:09)
[2017-08-30] MEDS ORDERED: MIDAZOLAM HCL 1 MG/ML 2ML VIAL ONE (12:04)
[2017-08-30] MEDS ORDERED: PROPOFOL 10 MG/ML 20ML VIAL IV ONE (12:04)
[2017-08-30] MEDS ORDERED: BUPIVACAINE/PF 0.5% 30ML VIAL ONE (12:27)
[2017-08-30] MEDS ORDERED: MEPERIDINE-PF 25 MG/ML SYG ONE ×2 (13:41→13:49)
[2017-08-30] MEDS: MORPHINE SULFATE 2 MG/ML 1ML SYG IVP PRN (15:43)
[2017-08-30] MEDS: SODIUM CHLORIDE 0.9% 1000ML 1,000 ML IV SCH (16:45)
[2017-08-31 00:26] VITALS: BP 119/66
[2017-08-31] MEDS: SODIUM CHLORIDE 0.9% 1000ML 1,000 ML IV SCH (02:06)
[2017-08-31 04:47] VITALS: BP 131/68
[2017-08-31] MEDS: MEROPENEM 500 MG VIAL IVP SCH ×3 (05:13→20:43)
[2017-08-31] MEDS: METRONIDAZOLE 500MG/100ML BAG 100 ML IV SCH ×3 (05:14→20:43)
[2017-08-31] MEDS: MORPHINE SULFATE 2 MG/ML 1ML SYG IVP PRN (05:14)
[2017-08-31 05:20] LABS: BASOPHILS % (AUTO) 0.2 % (0.0-5.0); EOSINOPHILS % (AUTO) 0.2 % (0.0-8.0); HEMATOCRIT 32.9 % (42-54); LYMPHOCYTES % (AUTO) 15.8 % (21.0-51.0); MEAN CORPUSCULAR HEMOGLOBIN 31.8 pg (27.0-33.0); MEAN CORPUSCULAR HGB CONC 35.5 g/dL (32.0-36.0); MEAN CORPUSCULAR VOLUME 89.6 fL (79-99); MONOCYTES % (AUTO) 8.6 % (3.0-13.0); NEUTROPHILS % (AUTO) 75.2 % (40.0-77.0); NUCLEATED RED BLOOD CELLS 0.1 % (0.0-0.19); PLATELET COUNT (AUTO) 221 K/uL (130-400); RED BLOOD CELL COUNT(AUTO) 3.68 MIL/uL (4.50-6.20); WHITE BLOOD COUNT (AUTO) 9.3 K/uL (4.8-10.8)
[2017-08-31 05:37] LABS: ALBUMIN 2.3 g/dL (3.5-5.0); CREATININE 0.6 mg/dL (0.5-1.5); POTASSIUM 4.3 mmol/L (3.5-5.1); TOTAL PROTEIN, SERUM 5.3 g/dL (6.0-8.3)
[2017-08-31] MEDS: BUDESONIDE 0.5 MG/2 ML INH IH SCH ×2 (05:37→18:33)
[2017-08-31 07:32] VITALS: BP 141/70
[2017-08-31] MEDS: APIXABAN 5 MG TABLET PO SCH ×2 (08:33→20:44)
[2017-08-31] MEDS: ACETAMINOPHEN-CODEINE 300/30MG TAB PO PRN ×2 (08:33→17:31)
[2017-08-31] MEDS: ROPINIROLE HCL 1 MG TABLET PO SCH ×2 (08:35→20:44)
[2017-08-31] MEDS: MULTIVITAMIN WITH MINERALS TABLET PO SCH (08:35)
[2017-08-31] MEDS: ASCORBIC ACID 500 MG TAB PO SCH (08:35)
[2017-08-31] MEDS: PANTOPRAZOLE SODIUM 40 MG TABLET.DR PO SCH ×2 (08:36→20:44)
[2017-08-31] MEDS: METOPROLOL TARTRATE 25 MG TAB PO SCH ×2 (08:36→20:44)
[2017-08-31] MEDS: DOXAZOSIN MESYLATE 2 MG TABLET PO SCH (08:37)
[2017-08-31] MEDS: ***HM***(Cholecalciferol (Vitamin D3) (Vitamin D3) 2,000 UNIT) PO SCH (08:38)
[2017-08-31] MEDS: FLUTICASONE PROPIONATE 50MCG/SPRAY 16 GM BOTTLE NS SCH (08:38)
[2017-08-31] MEDS ORDERED: ENOXAPARIN SODIUM 80 MG/0.8 ML SQ SCH (09:00)
[2017-08-31 11:48] VITALS: BP 104/58
[2017-08-31 16:00] VITALS: BP 92/58
[2017-08-31] MEDS ORDERED: ASPIRIN 81 MG EC TAB ONE (17:27)
[2017-08-31] MEDS: ASPIRIN 81 MG EC TAB PO SCH (17:30)
[2017-08-31 20:00] VITALS: BP 127/67
[2017-09-01] VITALS: BP 136/67
[2017-09-01] MEDS: SODIUM CHLORIDE 0.9% 1000ML 1,000 ML IV SCH ×3 (01:29→22:05)
[2017-09-01 04:00] VITALS: BP 135/60
[2017-09-01 06:11] LABS: HEMATOCRIT 35.4 % (42-54); MEAN CORPUSCULAR HEMOGLOBIN 30.2 pg (27.0-33.0); MEAN CORPUSCULAR HGB CONC 33.7 g/dL (32.0-36.0); MEAN CORPUSCULAR VOLUME 89.6 fL (79-99); PLATELET COUNT (AUTO) 235 K/uL (130-400); RED BLOOD CELL COUNT(AUTO) 3.95 MIL/uL (4.50-6.20); RED CELL DISTRIBUTION WIDTH 14.5 % (11.0-15.5); WHITE BLOOD COUNT (AUTO) 11.8 K/uL (4.8-10.8)
[2017-09-01 06:20] LABS: CREATININE 0.7 mg/dL (0.5-1.5); MAGNESIUM 1.3 mg/dL (1.80-2.40); POTASSIUM 3.8 mmol/L (3.5-5.1)
[2017-09-01] MEDS: BUDESONIDE 0.5 MG/2 ML INH IH SCH ×2 (07:17→19:37)
[2017-09-01] MEDS: MEROPENEM 500 MG VIAL IVP SCH ×3 (07:36→21:06)
[2017-09-01] MEDS: METRONIDAZOLE 500MG/100ML BAG 100 ML IV SCH ×3 (07:36→21:06)
[2017-09-01 07:54] VITALS: BP 133/61
[2017-09-01] MEDS: MULTIVITAMIN WITH MINERALS TABLET PO SCH (08:56)
[2017-09-01] MEDS: DOXAZOSIN MESYLATE 2 MG TABLET PO SCH (08:56)
[2017-09-01] MEDS: METOPROLOL TARTRATE 25 MG TAB PO SCH ×2 (08:56→21:07)
[2017-09-01] MEDS: PANTOPRAZOLE SODIUM 40 MG TABLET.DR PO SCH ×2 (08:56→21:23)
[2017-09-01] MEDS: ASCORBIC ACID 500 MG TAB PO SCH (08:56)
[2017-09-01] MEDS: FLUTICASONE PROPIONATE 50MCG/SPRAY 16 GM BOTTLE NS SCH (08:56)
[2017-09-01] MEDS: ROPINIROLE HCL 1 MG TABLET PO SCH ×2 (08:56→21:06)
[2017-09-01] MEDS: APIXABAN 5 MG TABLET PO SCH ×2 (08:56→21:06)
[2017-09-01] MEDS: ***HM***(Cholecalciferol (Vitamin D3) (Vitamin D3) 2,000 UNIT) PO SCH (09:00)
[2017-09-01 11:20] VITALS: BP 112/62
[2017-09-01] MEDS: MORPHINE SULFATE 2 MG/ML 1ML SYG IVP PRN (12:03)
[2017-09-01] MEDS: MAGNESIUM 2GM PREMIX 50ML 50 ML IV SCH (12:04)
[2017-09-01 16:51] VITALS: BP 105/55
[2017-09-01 20:00] VITALS: BP 134/60
[2017-09-01] MEDS ORDERED: MORPHINE SULFATE 4 MG/1ML SYG ONE (21:12)
[2017-09-02 04:00] VITALS: BP 152/73
[2017-09-02] MEDS ORDERED: MORPHINE SULFATE 4 MG/1ML SYG ONE ×2 (04:36→15:11)
[2017-09-02] MEDS: METRONIDAZOLE 500MG/100ML BAG 100 ML IV SCH ×2 (05:49→13:56)
[2017-09-02] MEDS: MEROPENEM 500 MG VIAL IVP SCH ×2 (05:49→13:56)
[2017-09-02 06:03] LABS: HEMATOCRIT 32.2 % (42-54); MEAN CORPUSCULAR HEMOGLOBIN 31.2 pg (27.0-33.0); MEAN CORPUSCULAR HGB CONC 35.1 g/dL (32.0-36.0); MEAN CORPUSCULAR VOLUME 88.8 fL (79-99); PLATELET COUNT (AUTO) 217 K/uL (130-400); RED BLOOD CELL COUNT(AUTO) 3.62 MIL/uL (4.50-6.20); RED CELL DISTRIBUTION WIDTH 14.7 % (11.0-15.5); WHITE BLOOD COUNT (AUTO) 9.2 K/uL (4.8-10.8)
[2017-09-02 06:11] LABS: CREATININE 0.6 mg/dL (0.5-1.5); MAGNESIUM 1.5 mg/dL (1.80-2.40); POTASSIUM 3.8 mmol/L (3.5-5.1)
[2017-09-02] MEDS: BUDESONIDE 0.5 MG/2 ML INH IH SCH (07:15)
[2017-09-02 07:59] VITALS: BP 116/66
[2017-09-02] MEDS: FLUTICASONE PROPIONATE 50MCG/SPRAY 16 GM BOTTLE NS SCH (08:11)
[2017-09-02] MEDS: ROPINIROLE HCL 1 MG TABLET PO SCH (08:12)
[2017-09-02] MEDS: MULTIVITAMIN WITH MINERALS TABLET PO SCH (08:12)
[2017-09-02] MEDS: APIXABAN 5 MG TABLET PO SCH (08:12)
[2017-09-02] MEDS: METOPROLOL TARTRATE 25 MG TAB PO SCH (08:12)
[2017-09-02] MEDS: PANTOPRAZOLE SODIUM 40 MG TABLET.DR PO SCH (08:12)
[2017-09-02] MEDS: DOXAZOSIN MESYLATE 2 MG TABLET PO SCH (08:12)
[2017-09-02] MEDS: ASCORBIC ACID 500 MG TAB PO SCH (08:12)
[2017-09-02] MEDS: MAGNESIUM 2GM PREMIX 50ML 50 ML IV SCH (08:13)
[2017-09-02] MEDS: ***HM***(Cholecalciferol (Vitamin D3) (Vitamin D3) 2,000 UNIT) PO SCH (08:34)
[2017-09-02 11:35] VITALS: BP 99/57
[2017-09-02] MEDS ORDERED: METR500T4 PO (15:08)
[2017-09-02] MEDS ORDERED: LEVO500T2 PO (15:08)
[2017-09-02] MEDS ORDERED: APIX5TAB PO (15:08)
[2017-09-02] MEDS ORDERED: MORPHINE SULFATE 4 MG/1ML SYG IVP PRN (15:15)
== END 2017-09-02 16:39 | disposition home or self-care (01) | DRG 417 ==
LOC: EDH 10:39 → EDHIP 14:35 → 4BH 19:50
PROVIDERS: ADMIT Internal Medicine Nephrology; ATTEND Internal Medicine Nephrology
PROC: 0FC98ZZ Extirpation of Matter from Common Bile Duct, Via Natural or Artificial Opening Endoscopic (ICD-10-PCS; 2017-08-27)
PROC: 0FT44ZZ Resection of Gallbladder, Percutaneous Endoscopic Approach (ICD-10-PCS; principal; 2017-08-30 12:03)
DX: K80.62 Calculus of gallbladder and bile duct with acute cholecystitis without obstruction (principal); K85.10 Biliary acute pancreatitis without necrosis or infection; I48.0 Paroxysmal atrial fibrillation; E83.42 Hypomagnesemia; K83.8 Other specified diseases of biliary tract; J43.9 Emphysema, unspecified; I10 Essential (primary) hypertension; I25.10 Atherosclerotic heart disease of native coronary artery without angina pectoris; M19.90 Unspecified osteoarthritis, unspecified site; K21.9 Gastro-esophageal reflux disease without esophagitis; I25.2 Old myocardial infarction; Z72.0 Tobacco use; Z79.01 Long term (current) use of anticoagulants; Z86.73 Personal history of transient ischemic attack (TIA), and cerebral infarction without residual deficits; Z87.11 Personal history of peptic ulcer disease; Z91.19 Patient's noncompliance with other medical treatment and regimen; Z99.81 Dependence on supplemental oxygen; Z98.49 Cataract extraction status, unspecified eye
CPT/HCPCS: 36415; 74176; 74330; 76705; 80048; 80053; 80076; 82550; 82553; 83690; 83735; 84484; 85025; 85027; 85610; 85730; 88304; 94640; 94664; A4218; C1769; C1773; J1100; J1650; J1885; J2001; J2175; J2185; J2250; J2270; J2370; J2704; J3010; J3475; J3490; J7030; J7040; J7120; Q9967

== ENCOUNTER 2017-11-10 13:32 | Inpatient (IN) | payer MEDICARE ==
[~2017-11-10] VITALS: Ht 182.9 cm; Wt 74.8 kg
[~2017-11-10 13:32] MED LIST changes: +APIX5TAB PO; -APIX5TAB4 PO; -ASPI81TA40 PO; +LEVO500T2 PO; +METR500T4 PO
[2017-11-10 13:58] LABS: BASOPHILS % (AUTO) 0.4 % (0.0-5.0); EOSINOPHILS % (AUTO) 0.9 % (0.0-8.0); HEMATOCRIT 41.5 % (42-54); MEAN CORPUSCULAR HEMOGLOBIN 29.9 pg (27.0-33.0); MEAN CORPUSCULAR HGB CONC 32.9 g/dL (32.0-36.0); MEAN CORPUSCULAR VOLUME 90.9 fL (79-99); MONOCYTES % (AUTO) 10.1 % (3.0-13.0); NEUTROPHILS % (AUTO) 58.6 % (40.0-77.0); PLATELET COUNT (AUTO) 194 K/uL (130-400); RED BLOOD CELL COUNT(AUTO) 4.57 MIL/uL (4.50-6.20); RED CELL DISTRIBUTION WIDTH 13.9 % (11.0-15.5); WHITE BLOOD COUNT (AUTO) 6.9 K/uL (4.8-10.8)
[2017-11-10 14:17] LABS: CREATININE 0.7 mg/dL (0.5-1.5); POTASSIUM 3.9 mmol/L (3.5-5.1)
[2017-11-10 14:18] LABS: INR 1.25 (0.85-1.15); PROTHROMBIN TIME 13.1 SEC (9.6-11.6)
[2017-11-10 14:32] LABS: ALBUMIN 3.2 g/dL (3.5-5.0); BILIRUBIN,TOTAL 0.8 mg/dL (0.2-1.0); TOTAL PROTEIN, SERUM 6.6 g/dL (6.0-8.3)
[2017-11-10 14:37] LABS: APPEARANCE,URINE Clear (CLEAR); BILIRUBIN,URINE Negative (NEGATIVE); COLOR,URINE Yellow (YELLOW); GLUCOSE, URINE (UA) Negative (NEGATIVE); KETONES,URINE Negative (NEGATIVE); LEUKOCYTE ESTERASE ,URINE Negative (NEGATIVE); NITRATE,URINE Negative (NEGATIVE); OCCULT BLOOD,URINE Negative (NEGATIVE); PH,URINE 5.5 (5.0-8.0); PROTEIN,URINE Negative (NEGATIVE); UROBILINOGEN,URINE 0.2 mg/dL (0.2-1.0)
[2017-11-10] MEDS ORDERED: ONDANSETRON HCL 4 MG/2 ML VIAL ONE (15:07)
[2017-11-10] MEDS ORDERED: MORPHINE SULFATE 2 MG/ML 1ML SYG ONE (15:07)
[2017-11-10] MEDS ORDERED: MORPHINE SULFATE 4 MG/1ML SYG ONE (16:33)
[2017-11-10 17:38] VITALS: BP 180/79
[2017-11-10] MEDS ORDERED: SODIUM CHLORIDE 0.9% 10 ML VIAL IVP PRN (17:45)
[2017-11-10] MEDS: MORPHINE SULFATE 4 MG/1ML SYG IV PRN (19:59)
[2017-11-10] MEDS ORDERED: ACET-2041 PO (20:12)
[2017-11-10] MEDS ORDERED: DIPHENHYDRAMINE HCL 25 MG CAPSULE PO PRN (20:15)
[2017-11-10 20:18] VITALS: BP 109/56
[2017-11-10] MEDS ORDERED: ACETAMINOPHEN EXTRA STRENGTH 500 MG TABLET PO PRN (20:45)
[2017-11-11] VITALS (19 sets, daily range): BP systolic 90–127; BP diastolic 52–70
[2017-11-11] MEDS: MORPHINE SULFATE 4 MG/1ML SYG IV PRN ×2 (01:00→04:58)
[2017-11-11] MEDS: MORPHINE SULFATE 4 MG/1ML SYG IVP PRN ×3 (08:42→14:28)
[2017-11-11] MEDS ORDERED: ASPI-555 PO (09:14)
[2017-11-11] MEDS ORDERED: DILT-36 PO (09:14)
[2017-11-11] MEDS ORDERED: POTA99TA21 PO (09:14)
[2017-11-11] MEDS ORDERED: FURO80TA3 PO (09:14)
[2017-11-11] MEDS ORDERED: VIT1CAPS26 PO (09:14)
[2017-11-11] MEDS ORDERED: CHOL200026 PO (09:14)
[2017-11-11] MEDS ORDERED: CEFU500T67 PO (09:14)
[2017-11-11 10:08] LABS: HEMATOCRIT 38.2 % (42-54); MEAN CORPUSCULAR HEMOGLOBIN 31.1 pg (27.0-33.0); MEAN CORPUSCULAR HGB CONC 34.4 g/dL (32.0-36.0); MEAN CORPUSCULAR VOLUME 90.5 fL (79-99); PLATELET COUNT (AUTO) 154 K/uL (130-400); RED BLOOD CELL COUNT(AUTO) 4.22 MIL/uL (4.50-6.20); RED CELL DISTRIBUTION WIDTH 13.8 % (11.0-15.5); WHITE BLOOD COUNT (AUTO) 7.5 K/uL (4.8-10.8)
[2017-11-11 10:18] LABS: CREATININE 0.9 mg/dL (0.5-1.5)
[2017-11-11] MEDS ORDERED: IPRATROPIUM/ALBUTEROL SULFATE 3 ML SOLUTION IH PRN (13:45)
[2017-11-11] MEDS ORDERED: ACETAMINOPHEN EXTRA STRENGTH 500 MG TABLET PO PRN (13:45)
[2017-11-11] MEDS ORDERED: CHLORDIAZEPOXIDE HCL 25 MG CAP PO PRN (13:45)
[2017-11-11] MEDS ORDERED: LORAZEPAM 2 MG/ML 1 ML VIAL IVP PRN (13:45)
[2017-11-11] MEDS ORDERED: ONDANSETRON HCL 4 MG/2 ML VIAL IV PRN (13:45)
[2017-11-11] MEDS: M.V.I. IV [ADULT] 10 ML, FOLIC ACID 1 MG, THIAMINE HCL 100 MG in SODIUM CHLORIDE 0.9% 1... IV SCH (14:32)
[2017-11-11] MEDS ORDERED: ONDANSETRON HCL 4 MG/2 ML VIAL ONE (16:02)
[2017-11-11] MEDS ORDERED: GLYCOPYRROLATE 0.2 MG/ML 5 ML VIAL ONE (16:03)
[2017-11-11] MEDS ORDERED: LIDOCAINE PF 2% 5ML ABBOJECT ONE (16:03)
[2017-11-11] MEDS ORDERED: DEXAMETHASONE SOD PHOSPHATE 10MG/ML 1ML VIAL ONE (16:03)
[2017-11-11] MEDS ORDERED: MIDAZOLAM HCL 1 MG/ML 2ML VIAL ONE (16:07)
[2017-11-11] MEDS ORDERED: PROPOFOL 10 MG/ML 20ML VIAL IV ONE (16:07)
[2017-11-11] MEDS ORDERED: FENTANYL CITRATE PF 50 MCG/1 ML 2ML VIAL ONE (16:08)
[2017-11-11] MEDS ORDERED: ROPIVACAINE 0.5% 5MG/ML 30ML IJ ONE (16:11)
[2017-11-11] MEDS ORDERED: CEFAZOLIN SODIUM 1 GM VIAL ONE (18:03)
[2017-11-11] MEDS ORDERED: NEOMY SULF/POLYMYXIN B SULFATE 1 ML AMPUL IR ONE (18:07)
[2017-11-11] MEDS ORDERED: BUPIVACAINE/PF 0.25% 30ML VIAL IJ ONE (18:23)
[2017-11-11] MEDS ORDERED: EPINEPHRINE 1 MG/ML AMPULE ONE (18:23)
[2017-11-11] MEDS ORDERED: KETOROLAC TROMETHAMINE 30MG/ML ONE (18:25)
[2017-11-11] MEDS ORDERED: DURAMORPH PF1 MG/ML 10ML AMP IV ONE (18:26)
[2017-11-11] MEDS ORDERED: EPHEDRINE SULFATE 50 MG/ML AMPULE ONE (18:40)
[2017-11-11] MEDS ORDERED: SUB TO ALBUTEROL 2.5MG/3ML NEBULES PER P&T IH ONE (18:48)
[2017-11-11] MEDS ORDERED: ROCURONIUM BROMIDE 10MG/1ML 5ML VL ONE (19:09)
[2017-11-11] MEDS ORDERED: LIDOCAINE HCL 2% JELLY 5 ML ONE (19:10)
[2017-11-11] MEDS ORDERED: SUCCINYLCHOLINE CHLORIDE 20 MG/ML 10 ML VIAL ONE (19:10)
[2017-11-11] MEDS ORDERED: LIDOCAINE HCL 4% LTA SOL 4 ML VIAL ONE (19:10)
[2017-11-11] MEDS ORDERED: POTASSIUM CHLORIDE 20MEQ/100ML 100 ML IV PRN (19:45)
[2017-11-11] MEDS ORDERED: OXYCODONE HCL 5 MG TAB PO PRN (19:45)
[2017-11-11] MEDS ORDERED: LIDOCAINE HCL-MPF 1% 2ML VIAL IVP PRN (19:45)
[2017-11-11] MEDS ORDERED: ESMOLOL HCL 10 MG/ML 10 ML VIAL ONE (19:45)
[2017-11-11] MEDS ORDERED: FERROUS FUMARATE 324 MG TABLET PO PRN (19:45)
[2017-11-11] MEDS: ACETAMINOPHEN EXTRA STRENGTH 500 MG TABLET PO SCH (19:45)
[2017-11-11] MEDS ORDERED: KETOROLAC TROMETHAMINE 15MG/ML IV PRN (19:45)
[2017-11-11] MEDS: SODIUM CHLORIDE 0.9% 1000ML 1,000 ML IV SCH (21:00)
[2017-11-12] MEDS ORDERED: CEFAZOLIN 2GM / 50 ML 50 ML IV SCH (00:45)
[2017-11-12] MEDS: CEFAZOLIN SODIUM 1 GM VIAL IVP SCH ×3 (01:55→17:18)
[2017-11-12] MEDS: ACETAMINOPHEN EXTRA STRENGTH 500 MG TABLET PO SCH ×3 (03:52→19:49)
[2017-11-12 04:00] VITALS: BP 90/52
[2017-11-12 04:38] LABS: HEMATOCRIT 32.5 % (42-54); MEAN CORPUSCULAR HEMOGLOBIN 30.5 pg (27.0-33.0); MEAN CORPUSCULAR HGB CONC 33.8 g/dL (32.0-36.0); MEAN CORPUSCULAR VOLUME 90.2 fL (79-99); PLATELET COUNT (AUTO) 144 K/uL (130-400); RED CELL DISTRIBUTION WIDTH 13.6 % (11.0-15.5); WHITE BLOOD COUNT (AUTO) 10.8 K/uL (4.8-10.8)
[2017-11-12 04:53] LABS: CREATININE 0.9 mg/dL (0.5-1.5); POTASSIUM 4.7 mmol/L (3.5-5.1)
[2017-11-12] MEDS: SODIUM CHLORIDE 0.9% 1000ML 1,000 ML IV SCH ×2 (06:03→15:41)
[2017-11-12 07:14] VITALS: BP 95/54
[2017-11-12] MEDS: M.V.I. IV [ADULT] 10 ML, FOLIC ACID 1 MG, THIAMINE HCL 100 MG in SODIUM CHLORIDE 0.9% 1... IV SCH (09:00)
[2017-11-12] MEDS: DILTIAZEM HCL 120 MG CAP.SR.24H PO SCH ×2 (09:00→09:05)
[2017-11-12] MEDS ORDERED: ASPIRIN 81 MG EC TAB PO SCH (09:00)
[2017-11-12] MEDS: APIXABAN 5 MG TABLET PO SCH ×2 (09:04→19:49)
[2017-11-12] MEDS: OXYCODONE HCL 10 MG TAB.SR.12H PO SCH ×2 (09:06→19:48)
[2017-11-12 11:00] VITALS: BP 90/60
[2017-11-12] MEDS ORDERED: GUAIFENESIN-CODEINE 5 ML SYRUP PO PRN (11:15)
[2017-11-12] MEDS ORDERED: ACETYLCYSTEINE 10% 100MG/ML 4ML VIAL PO SCH (11:15)
[2017-11-12] MEDS: IPRATROPIUM/ALBUTEROL SULFATE 3 ML SOLUTION IH SCH ×4 (14:07→22:34)
[2017-11-12] MEDS: ACETYLCYSTEINE 10% 100MG/ML 4ML VIAL IH SCH ×3 (14:08→22:34)
[2017-11-12 16:00] VITALS: BP 107/60
[2017-11-12] MEDS: OXYCODONE HCL 5 MG TAB PO PRN (17:23)
[2017-11-12 19:39] VITALS: BP 112/63
[2017-11-13] MEDS: ACETYLCYSTEINE 10% 100MG/ML 4ML VIAL IH SCH ×3 (03:15→10:12)
[2017-11-13] MEDS: IPRATROPIUM/ALBUTEROL SULFATE 3 ML SOLUTION IH SCH ×3 (03:15→10:13)
[2017-11-13] MEDS: ACETAMINOPHEN EXTRA STRENGTH 500 MG TABLET PO SCH ×2 (03:17→12:33)
[2017-11-13 04:00] VITALS: BP 153/77
[2017-11-13 07:19] LABS: MEAN CORPUSCULAR HEMOGLOBIN 30.3 pg (27.0-33.0); MEAN CORPUSCULAR HGB CONC 33.3 g/dL (32.0-36.0); MEAN CORPUSCULAR VOLUME 90.9 fL (79-99); PLATELET COUNT (AUTO) 158 K/uL (130-400); RED BLOOD CELL COUNT(AUTO) 3.19 MIL/uL (4.50-6.20); RED CELL DISTRIBUTION WIDTH 13.7 % (11.0-15.5)
[2017-11-13 07:32] LABS: ALBUMIN 2.5 g/dL (3.5-5.0); BILIRUBIN,TOTAL 0.6 mg/dL (0.2-1.0); CREATININE 0.7 mg/dL (0.5-1.5); POTASSIUM 3.9 mmol/L (3.5-5.1); TOTAL PROTEIN, SERUM 5.6 g/dL (6.0-8.3)
[2017-11-13 07:57] VITALS: BP 97/56
[2017-11-13] MEDS: APIXABAN 5 MG TABLET PO SCH (08:33)
[2017-11-13] MEDS: DILTIAZEM HCL 120 MG CAP.SR.24H PO SCH (08:33)
[2017-11-13] MEDS: OXYCODONE HCL 10 MG TAB.SR.12H PO SCH (08:34)
[2017-11-13] MEDS: OXYCODONE HCL 5 MG TAB PO PRN (09:40)
[2017-11-13 11:20] VITALS: BP 118/58
[2017-11-14] MEDS ORDERED: BISACODYL 10 MG SUPP.RECT RC PRN (19:45)
== END 2017-11-13 16:20 | DRG 481 ==
LOC: EDH 13:32 → EDHIP 16:27 → 4AH 17:03
PROVIDERS: ADMIT Family Medicine; ATTEND Family Medicine
PROC: 0QS706Z Reposition Left Upper Femur with Intramedullary Internal Fixation Device, Open Approach (ICD-10-PCS; principal; 2017-11-11 18:54)
DX: S72.142A Displaced intertrochanteric fracture of left femur, initial encounter for closed fracture (principal); J96.11 Chronic respiratory failure with hypoxia; Z87.891 Personal history of nicotine dependence; J44.9 Chronic obstructive pulmonary disease, unspecified; G25.0 Essential tremor; I25.10 Atherosclerotic heart disease of native coronary artery without angina pectoris; I45.10 Unspecified right bundle-branch block; I48.0 Paroxysmal atrial fibrillation; I65.22 Occlusion and stenosis of left carotid artery; K21.9 Gastro-esophageal reflux disease without esophagitis; W18.30XA Fall on same level, unspecified, initial encounter; Z79.01 Long term (current) use of anticoagulants; Z79.82 Long term (current) use of aspirin; I25.2 Old myocardial infarction; Z86.73 Personal history of transient ischemic attack (TIA), and cerebral infarction without residual deficits; Z99.81 Dependence on supplemental oxygen; Y93.89 Activity, other specified; Y92.098 Other place in other non-institutional residence as the place of occurrence of the external cause; Y99.8 Other external cause status
CPT/HCPCS: 36415; 70450; 71045; 72125; 73501; 73502; 76000; 80048; 80053; 81003; 82550; 82553; 84484; 85025; 85027; 85610; 85730; 93005; 93306; 94640; 94664; 94760; 97039; A4218; A4606; J0171; J0330; J0690; J1100; J1885; J2001; J2250; J2270; J2274; J2405; J2704; J2795; J3010; J3411; J3490; J7030; J7120; J7608; Q0163

== ENCOUNTER 2018-04-24 06:11 | Emergency (ER) | payer MEDICARE ==
[~2018-04-24 06:11] MED LIST changes: +ASPI-555 PO; +CEFU500T67 PO; -CHOL200013 PO; +CHOL200026 PO; +DILT-36 PO; +FURO80TA3 PO; -LEVO500T2 PO; -METR500T4 PO; +POTA99TA21 PO; -TYL3 PO; +VIT1CAPS26 PO
[2018-04-24 07:26] LABS: BASOPHILS % (AUTO) 0.3 % (0.0-5.0); EOSINOPHILS % (AUTO) 1.1 % (0.0-8.0); HEMATOCRIT 38.3 % (42-54); LYMPHOCYTES % (AUTO) 18.8 % (21.0-51.0); MEAN CORPUSCULAR HEMOGLOBIN 29.3 pg (27.0-33.0); MEAN CORPUSCULAR HGB CONC 33.1 g/dL (32.0-36.0); MEAN CORPUSCULAR VOLUME 88.6 fL (79-99); MONOCYTES % (AUTO) 12.9 % (3.0-13.0); NEUTROPHILS % (AUTO) 66.9 % (40.0-77.0); NUCLEATED RED BLOOD CELLS 0.1 % (0.0-0.19); PLATELET COUNT (AUTO) 152 K/uL (130-400); RED BLOOD CELL COUNT(AUTO) 4.33 MIL/uL (4.50-6.20); RED CELL DISTRIBUTION WIDTH 16.6 % (11.0-15.5); WHITE BLOOD COUNT (AUTO) 4.9 K/uL (4.8-10.8)
[2018-04-24 07:43] LABS: CREATININE 0.7 mg/dL (0.5-1.5); POTASSIUM 4.1 mmol/L (3.5-5.1)
[2018-04-24 07:49] LABS: ALBUMIN 3.4 g/dL (3.5-5.0); BILIRUBIN,TOTAL 1.7 mg/dL (0.2-1.0); TOTAL PROTEIN, SERUM 7.1 g/dL (6.0-8.3)
[2018-04-24] MEDS ORDERED: ACETAMINOPHEN 325 MG TAB ONE (08:10)
[2018-04-24 08:23] LABS: INR 1.16 (0.85-1.15); PARTIAL THROMBOPLASTIN TIME 34.8 SEC (26.3-35.5); PROTHROMBIN TIME 12.1 SEC (9.6-11.6)
== END 2018-04-24 09:02 | disposition home or self-care (01) ==
LOC: EDH 06:11
DX: R11.10 Vomiting, unspecified (principal); R94.5 Abnormal results of liver function studies; J44.9 Chronic obstructive pulmonary disease, unspecified; K21.9 Gastro-esophageal reflux disease without esophagitis; I48.91 Unspecified atrial fibrillation; E07.9 Disorder of thyroid, unspecified; Z86.73 Personal history of transient ischemic attack (TIA), and cerebral infarction without residual deficits; Z90.49 Acquired absence of other specified parts of digestive tract; Z98.890 Other specified postprocedural states; Z87.891 Personal history of nicotine dependence
CPT/HCPCS: 36415; 74021; 80053; 82550; 83690; 84484; 85025; 85610; 85730; 93005; 94761

== ENCOUNTER → 2018-09-01 | Outpatient (CLI) | payer MEDICARE ==
[~2018-09-01] MED LIST changes: +IOHEXOL-350 50ML VIAL IV ONE
== END | disposition home or self-care (01) ==
LOC: RAH 07:42
PROVIDERS: ATTEND Internal Medicine Cardiovascular Disease
DX: I74.5 Embolism and thrombosis of iliac artery (principal); I70.90 Unspecified atherosclerosis; K46.9 Unspecified abdominal hernia without obstruction or gangrene; I73.9 Peripheral vascular disease, unspecified; K57.30 Diverticulosis of large intestine without perforation or abscess without bleeding
CPT/HCPCS: 75635; Q9967

== ENCOUNTER 2019-01-15 09:15 | Emergency (ER) | payer MEDICARE ==
[~2019-01-15 09:15] MED LIST changes: -IOHEXOL-350 50ML VIAL IV ONE; +OMEP-50 PO; -OMEP20CA10 PO
[2019-01-15] MEDS ORDERED: KETOROLAC TROMETHAMINE 15MG/ML ONE (10:33)
== END 2019-01-15 12:44 | disposition home or self-care (01) ==
LOC: EDH 09:15
DX: S32.019A Unspecified fracture of first lumbar vertebra, initial encounter for closed fracture (principal); J44.9 Chronic obstructive pulmonary disease, unspecified; K21.9 Gastro-esophageal reflux disease without esophagitis; E07.9 Disorder of thyroid, unspecified; I25.2 Old myocardial infarction; Z87.891 Personal history of nicotine dependence; W18.39XA Other fall on same level, initial encounter; Y93.89 Activity, other specified; Y92.89 Other specified places as the place of occurrence of the external cause; Y99.8 Other external cause status
CPT/HCPCS: 72131; 96374; 99284; J1885

== ENCOUNTER → 2020-06-07 | Outpatient (CLI) | payer MEDICARE ==
[~2020-06-07] MED LIST changes: -ASPI-555 PO; +ASPI-556 PO; +FLUT15.845 NS; -FLUT15.88 NS; -OMEP-50 PO; +OMEP20CA12 PO; -ROPI0.5T5 PO; +ROPI0.5T7 PO
== END | disposition home or self-care (01) ==
LOC: SHCH 15:03
PROVIDERS: ATTEND Internal Medicine Cardiovascular Disease
DX: I48.0 Paroxysmal atrial fibrillation (principal); R42 Dizziness and giddiness
CPT/HCPCS: 93306; 93356

== ENCOUNTER → 2021-09-11 | Outpatient (CLI) | payer MEDICARE ==
[~2021-09-11] MED LIST changes: +FLUT250D2 IH; -FLUT250D3 IH; -POTA99TA21 PO; +POTA99TA26 PO
== END | disposition home or self-care (01) ==
LOC: SHCH 13:55
PROVIDERS: ATTEND Internal Medicine Cardiovascular Disease
DX: I65.23 Occlusion and stenosis of bilateral carotid arteries (principal)
CPT/HCPCS: 93880

== ENCOUNTER 2022-11-06 05:48 | Day surgery (SDC) | payer MEDICARE ==
[2022-11-04 15:50] LABS: BASOPHILS % (AUTO) 0.4 % (0.0-5.0); EOSINOPHILS % (AUTO) 3.1 % (0.0-8.0); HEMATOCRIT 43.7 % (42-54); LYMPHOCYTES % (AUTO) 24.4 % (21.0-51.0); MEAN CORPUSCULAR HEMOGLOBIN 33.3 pg (27.0-33.0); MEAN CORPUSCULAR HGB CONC 33.9 g/dL (32.0-36.0); MEAN CORPUSCULAR VOLUME 98.2 fL (79-99); MONOCYTES % (AUTO) 11.7 % (3.0-13.0); PLATELET COUNT (AUTO) 167 K/uL (130-400); RED BLOOD CELL COUNT(AUTO) 4.45 MIL/uL (4.50-6.20); RED CELL DISTRIBUTION WIDTH 11.9 % (11.0-15.5); WHITE BLOOD COUNT (AUTO) 6.8 K/uL (4.8-10.8)
[2022-11-04 15:58] LABS: CREATININE 0.7 mg/dL (0.5-1.5); POTASSIUM 4.4 mmol/L (3.5-5.1)
[2022-11-04 16:01] LABS: INR 1.24 (0.85-1.15); PROTHROMBIN TIME 13.4 SEC (9.6-11.6)
[2022-11-04 16:02] LABS: PARTIAL THROMBOPLASTIN TIME 30.8 SEC (26.3-35.5)
[2022-11-04 16:12] LABS: B-TYPE NATRIURETIC PEPTIDE 210 pg/mL (0-100)
[2022-11-04 17:08] LABS: APPEARANCE,URINE CLEAR (CLEAR); BILIRUBIN,URINE NEGATIVE (NEGATIVE); COLOR,URINE YELLOW (YELLOW); GLUCOSE, URINE (UA) NEGATIVE (NEGATIVE); KETONES,URINE NEGATIVE (NEGATIVE); LEUKOCYTE ESTERASE ,URINE 250 Leu/uL (NEGATIVE); NITRATE,URINE NEGATIVE (NEGATIVE); OCCULT BLOOD,URINE NEGATIVE (NEGATIVE); PROTEIN,URINE NEGATIVE (NEGATIVE); UROBILINOGEN,URINE 0.2 mg/dL (0.2-1.0)
[2022-11-04 17:23] LABS: BACTERIA,URINE MOD /HPF (None Seen); MUCUS,URINE RARE LPF (None Seen); WBC,URINE 26-50 /HPF (0-1)
[2022-11-05 13:08] VITALS: BP 121/63
[~2022-11-06] VITALS: Ht 182.9 cm; Wt 30.7 kg
[2022-11-06] VITALS (9 sets, daily range): BP systolic 113–146; BP diastolic 56–78
[~2022-11-06 05:48] MED LIST changes: +0.9%NACL 1000ML 1,000 ML IV SCH; -ALBU2.5V2 IH; -APIX5TAB PO; -CEFU500T67 PO; -DILT-36 PO; +DILT30TA3 PO; -DOXA8TAB81 PO; -FLUT15.845 NS; +FLUT1DIS IH; -FLUT250D2 IH; -FURO80TA3 PO; +LEVO75TA10 PO; -MOME0.13 IH; +MULT-1378 PO; -POTA99TA26 PO; -ROPI0.5T7 PO; +SOLI5TAB6 PO; +SPIRIVA IH; -VIT1CAPS26 PO
[2022-11-06] MEDS ORDERED: CLOP75TA32 PO (07:02)
[2022-11-06] MEDS ORDERED: NITROGLYCERIN 50MG VIAL ONE (07:13)
[2022-11-06] MEDS ORDERED: IODIXANOL 320 MG/ML 100 ML VIAL ONE ×2 (07:13→07:27)
[2022-11-06] MEDS ORDERED: LIDOCAINE HCL 400MG/20ML VIAL ONE (07:13)
[2022-11-06] MEDS ORDERED: HEPARIN 10,000 UNIT/10ML (1,000 UNIT/ML) VIAL ONE (07:13)
[2022-11-06] MEDS ORDERED: MIDAZOLAM HCL 1 MG/ML 2ML VIAL ONE (07:26)
[2022-11-06] MEDS ORDERED: FENTANYL CITRATE PF 50 MCG/1 ML 2ML VIAL ONE (07:27)
[2022-11-06] MEDS ORDERED: 0.9%NACL 1000ML 1,000 ML IV SCH (08:30)
[2022-11-06] MEDS ORDERED: GLUCAGON 1MG KIT 1 MG ML IM PRN (08:30)
[2022-11-06] MEDS ORDERED: DEXTROSE 50%-WATER 50 ML DISP.SYRIN IV PRN (08:30)
== END 2022-11-06 13:05 | disposition home or self-care (01) ==
LOC: DAH 05:48
PROVIDERS: ATTEND Internal Medicine
DX: I70.213 Atherosclerosis of native arteries of extremities with intermittent claudication, bilateral legs (principal); I70.92 Chronic total occlusion of artery of the extremities; I48.0 Paroxysmal atrial fibrillation; J43.9 Emphysema, unspecified; F17.200 Nicotine dependence, unspecified, uncomplicated; Z72.89 Other problems related to lifestyle; Z79.01 Long term (current) use of anticoagulants; Z79.899 Other long term (current) drug therapy; Z98.890 Other specified postprocedural states
CPT/HCPCS: 80048; 83880; 85025; 85610; 85730; 87088; 81001; 36415; 71045; 93005; 75625; 36245; 75716; 87077; 87186; C1887; C1894 ×3; C1769; J3010; J3490 ×2; J2250; J1644; Q9967 ×2; A4215; A4222; A4221; A4663; A4216; A6206; A4606; A4223 ×3; 36140; 96360; 96361; 99156; 99157

== ENCOUNTER 2022-12-15 05:46 | Day surgery (SDC) | payer MEDICARE ==
[2022-12-10 11:12] LABS: BASOPHILS % (AUTO) 0.8 % (0.0-5.0); EOSINOPHILS % (AUTO) 8.8 % (0.0-8.0); HEMATOCRIT 45.3 % (42-54); LYMPHOCYTES % (AUTO) 29.2 % (21.0-51.0); MEAN CORPUSCULAR HEMOGLOBIN 33.2 pg (27.0-33.0); MEAN CORPUSCULAR HGB CONC 33.8 g/dL (32.0-36.0); MEAN CORPUSCULAR VOLUME 98.3 fL (79-99); MONOCYTES % (AUTO) 12.5 % (3.0-13.0); PLATELET COUNT (AUTO) 186 K/uL (130-400); RED BLOOD CELL COUNT(AUTO) 4.61 MIL/uL (4.50-6.20); RED CELL DISTRIBUTION WIDTH 11.6 % (11.0-15.5); WHITE BLOOD COUNT (AUTO) 5.9 K/uL (4.8-10.8)
[2022-12-10 11:13] LABS: APPEARANCE,URINE CLEAR (CLEAR); BILIRUBIN,URINE NEGATIVE (NEGATIVE); COLOR,URINE LIGHT-YELLOW (YELLOW); GLUCOSE, URINE (UA) NEGATIVE (NEGATIVE); KETONES,URINE NEGATIVE (NEGATIVE); LEUKOCYTE ESTERASE ,URINE 75 Leu/uL (NEGATIVE); NITRATE,URINE NEGATIVE (NEGATIVE); OCCULT BLOOD,URINE NEGATIVE (NEGATIVE); PH,URINE 7.5 (5.0-8.0); PROTEIN,URINE NEGATIVE (NEGATIVE); UROBILINOGEN,URINE 0.2 mg/dL (0.2-1.0)
[2022-12-10 11:20] LABS: CREATININE 0.7 mg/dL (0.5-1.5); POTASSIUM 4.5 mmol/L (3.5-5.1)
[2022-12-10 11:26] VITALS: BP 125/61; PULSE 79; RESP 15
[2022-12-10 12:25] LABS: INR 1.18 (0.85-1.15); PROTHROMBIN TIME 13.5 SEC (9.6-11.6)
[2022-12-10 12:26] LABS: PARTIAL THROMBOPLASTIN TIME 28.8 SEC (26.3-35.5)
[2022-12-10 12:34] LABS: BACTERIA,URINE MANY /HPF (None Seen); SQUAMOUS EPITHELIAL CELL,UR RARE /HPF (0-2); TRANSITIONAL EPI CELLS,URINE RARE /HPF (None Seen)
[2022-12-10 12:35] LABS: B-TYPE NATRIURETIC PEPTIDE 416 pg/mL (0-100)
[2022-12-15] VITALS (19 sets, daily range): BP systolic 116–172; BP diastolic 54–92; PULSE 94–115; RESP 12–24
[~2022-12-15] VITALS: Ht 182.9 cm; Wt 76.9 kg
[~2022-12-15 05:46] MED LIST changes: -0.9%NACL 1000ML 1,000 ML IV SCH
[2022-12-15] MEDS ORDERED: 0.9%NACL 1000ML 1,000 ML IV ONE (06:16)
[2022-12-15] MEDS ORDERED: LIDOCAINE HCL 400MG/20ML VIAL ONE (07:08)
[2022-12-15] MEDS ORDERED: NITROGLYCERIN 50MG VIAL ONE (07:09)
[2022-12-15] MEDS ORDERED: FENTANYL CITRATE PF 50 MCG/1 ML 2ML VIAL ONE ×2 (07:09→09:10)
[2022-12-15] MEDS ORDERED: MIDAZOLAM HCL 1 MG/ML 2ML VIAL ONE ×2 (07:09→09:10)
[2022-12-15] MEDS ORDERED: IODIXANOL 320 MG/ML 100 ML VIAL ONE (07:09)
[2022-12-15] MEDS ORDERED: VERAPAMIL HCL 2.5 MG/ML VIAL ONE (07:09)
[2022-12-15] MEDS ORDERED: HEPARIN 10,000 UNIT/10ML (1,000 UNIT/ML) VIAL ONE (07:09)
[2022-12-15] MEDS ORDERED: ACETAMINOPHEN 500 MG TABLET PO PRN (10:30)
[2022-12-15] MEDS ORDERED: MORPHINE 2 MG SYG IVP PRN (10:30)
[2022-12-15] MEDS ORDERED: 0.9%NACL 1000ML 1,000 ML IV SCH (10:30)
[2022-12-15] MEDS ORDERED: HYDRALAZINE 20MG/ML VIAL IV PRN (10:30)
[2022-12-15] MEDS ORDERED: GLUCAGON 1MG KIT 1 MG ML IM PRN (10:30)
[2022-12-15] MEDS ORDERED: DEXTROSE 50%-WATER 50 ML DISP.SYRIN IV PRN (10:30)
== END 2022-12-15 17:40 | disposition home or self-care (01) ==
LOC: DAH 05:46
PROVIDERS: ATTEND Internal Medicine
DX: I70.211 Atherosclerosis of native arteries of extremities with intermittent claudication, right leg (principal); J43.9 Emphysema, unspecified; I48.0 Paroxysmal atrial fibrillation; Z98.890 Other specified postprocedural states; Z90.49 Acquired absence of other specified parts of digestive tract; Z79.01 Long term (current) use of anticoagulants; Z79.899 Other long term (current) drug therapy
CPT/HCPCS: 80048; 83880; 85025; 85610; 85730 ×3; 87088; 81001; 36415 ×2; 93005; 75716; 75774; 85347 ×3; C9764; C1887 ×2; C1725 ×6; C1894 ×2; C1769 ×6; C1893; C1753; J3010 ×2; J3490 ×2; J7030; J1644 ×2; J2250 ×2; Q9967; A4215; A4222; A4221; A4663; A4216; A4606; A4223 ×3; 99156; 99157

== ENCOUNTER 2023-03-22 12:46 | Inpatient (IN) | payer MEDICARE ==
[~2023-03-22] VITALS: Ht 182.9 cm; Wt 76.3 kg
[2023-03-22 15:21] LABS: BASOPHILS # (AUTO) 0.05 K/uL (0.00-0.20); BASOPHILS % (AUTO) 0.7 % (0.0-5.0); EOSINOPHILS # (AUTO) 0.34 K/uL (0.00-0.70); HEMATOCRIT 43.8 % (42-54); IMMATURE GRANULOCYTE ABSOLUTE 0.03 K/uL (0-1); LYMPHOCYTES # (AUTO) 1.8 K/uL (1.0-4.8); LYMPHOCYTES % (AUTO) 25.8 % (21.0-51.0); MEAN CORPUSCULAR HEMOGLOBIN 33.6 pg (27.0-33.0); MEAN CORPUSCULAR VOLUME 98.6 fL (79-99); MONOCYTES # (AUTO) 0.9 K/uL (0.1-1.0); MONOCYTES % (AUTO) 13.3 % (3.0-13.0); NEUTROPHILS # (AUTO) 3.7 K/uL (1.8-7.7); NEUTROPHILS % (AUTO) 54.8 % (40.0-77.0); PLATELET COUNT (AUTO) 210 K/uL (130-400); RED BLOOD CELL COUNT(AUTO) 4.44 MIL/uL (4.50-6.20); WHITE BLOOD COUNT (AUTO) 6.8 K/uL (4.8-10.8)
[2023-03-22 15:30] LABS: ALBUMIN 3.1 g/dL (3.5-5.0); BILIRUBIN,TOTAL 0.8 mg/dL (0.2-1.0); CREATININE 0.7 mg/dL (0.5-1.5); POTASSIUM 4.5 mmol/L (3.5-5.1); TOTAL PROTEIN, SERUM 6.7 g/dL (6.0-8.3)
[2023-03-22] MEDS ORDERED: GUAIFENESIN 600 MG TABLET.ER PO ONE (15:30)
[2023-03-22] MEDS ORDERED: IPRATROPIUM/ALBUTEROL SULFATE 3 ML SOLUTION IH ONE (15:30)
[2023-03-22] MEDS ORDERED: SOLU-MEDROL 125MG VIAL IVP ONE (15:30)
[2023-03-22 15:59] LABS: MAGNESIUM 1.1 mg/dL (1.80-2.40); THYROID STIMULATING HORMONE 1.96 uIU/mL (0.36-3.74)
[2023-03-22 16:28] VITALS: PULSE 62; RESP 20
[2023-03-22] MEDS ORDERED: ONDANSETRON 4MG INJ IV PRN (16:30)
[2023-03-22] MEDS ORDERED: CEFTRIAXONE 1G VIAL 1 GM in 0.9%NACL 50ML 50 ML IV SCH (16:30)
[2023-03-22] MEDS ORDERED: 0.9%NACL 1000ML 1,000 ML IV SCH (16:30)
[2023-03-22] MEDS ORDERED: ACETAMINOPHEN 325 MG TAB PO PRN (16:30)
[2023-03-22] MEDS ORDERED: NITROGLYCERIN 0.4 MG SL TAB SL PRN (16:30)
[2023-03-22] MEDS ORDERED: MAG/ALUM/SIMETH 30 ML UDCUP PO PRN (16:30)
[2023-03-22] MEDS: SOLU-MEDROL 125MG VIAL IV SCH (16:30)
[2023-03-22] MEDS ORDERED: LACTULOSE 20 GM/30 ML UDCUP PO PRN (16:30)
[2023-03-22] MEDS ORDERED: ACETAMINOPHEN WITH CODEINE 1 TAB TAB PO PRN (16:30)
[2023-03-22] MEDS ORDERED: HYDRALAZINE 20MG/ML VIAL IV PRN (16:30)
[2023-03-22] MEDS ORDERED: AZITHROMYCIN 500MG+NS 250ML 250 ML IV SCH (16:30)
[2023-03-22 16:45] VITALS: PULSE 84; RESP 20; O2SAT 94
[2023-03-22] MEDS ORDERED: RIVA2.5T PO (16:50)
[2023-03-22] MEDS ORDERED: OXYB5TAB20 PO (16:50)
[2023-03-22 17:01] LABS: ABG BASE EXCESS 0.9 mmol/L (-2.0-3.0); ABG HCO3 24.9 mmol/L (21.0-28.0); ABG OXYGEN SATURATION 88.3 % (95.0-99.0); ABG PCO2 38 mmHg (35-48); ABG PH 7.434 (7.35-7.450); DEVICE COMMENT LR NC; PO2, ARTERIAL BG 52.5 mmHg (83.0-108.0); VENT MODE, BG NC (ROOM AIR)
[2023-03-22] MEDS: CEFTRIAXONE 1G VIAL IVPB SCH ×2 (17:17→18:00)
[2023-03-22] MEDS ORDERED: PHARMACY COMMUNICATION MISC SCH (17:30)
[2023-03-22] MEDS ORDERED: IPRATROPIUM/ALBUTEROL SULFATE 3 ML SOLUTION IH SCH (18:00)
[2023-03-22 18:49] VITALS: PULSE 109; RESP 22; O2SAT 90
[2023-03-22 19:40] LABS: APPEARANCE,URINE CLEAR (CLEAR); BILIRUBIN,URINE NEGATIVE (NEGATIVE); COLOR,URINE LIGHT-YELLOW (YELLOW); GLUCOSE, URINE (UA) NEGATIVE (NEGATIVE); KETONES,URINE NEGATIVE (NEGATIVE); LEUKOCYTE ESTERASE ,URINE 25 Leu/uL (NEGATIVE); NITRATE,URINE NEGATIVE (NEGATIVE); OCCULT BLOOD,URINE NEGATIVE (NEGATIVE); PH,URINE 5.5 (5.0-8.0); PROTEIN,URINE NEGATIVE (NEGATIVE); UROBILINOGEN,URINE 0.2 mg/dL (0.2-1.0)
[2023-03-22 19:41] LABS: ADD UA MICROSCOPIC YES
[2023-03-22 19:43] LABS: BACTERIA,URINE MOD /HPF (None Seen); RBC,URINE 0-1 /HPF (0-1)
[2023-03-22] MEDS ORDERED: DILTIAZEM HCL 30 MG PO SCH (21:00)
[2023-03-22] MEDS ORDERED: SPIRIVA IH SCH (21:00)
[2023-03-22] MEDS: SALMETEROL IH SCH (21:00)
[2023-03-22] MEDS: FLUTICASONE IH SCH (21:00)
[2023-03-22] MEDS: OXYBUTYNIN CHLORIDE 5 MG TABLET PO SCH (21:22)
[2023-03-22] MEDS: DILTIAZEM 60MG TAB PO SCH (21:23)
[2023-03-22] MEDS: MAGNESIUM 2GM PREMIX 50ML 50 ML IV PRN (21:23)
[2023-03-22 22:50] VITALS: BP 136/75; PULSE 121; RESP 24; O2SAT 93
[2023-03-22] MEDS ORDERED: FUROSEMIDE 20MG VIAL IV ONE (23:00)
[2023-03-22] MEDS ORDERED: POTASSIUM CHLORIDE 10% ELIXIR 20 MEQ/15 ML UDCUP PO PRN (23:00)
[2023-03-22] MEDS ORDERED: MAGNESIUM 2GM PREMIX 50ML 50 ML IV PRN (23:00)
[2023-03-22] MEDS ORDERED: GLUCAGON 1MG KIT 1 MG ML IM PRN (23:00)
[2023-03-22] MEDS ORDERED: POTASSIUM CHLORIDE 20MEQ/100ML 100 ML IV PRN ×2 (23:00)
[2023-03-22] MEDS ORDERED: DEXTROSE 50%-WATER 50 ML DISP.SYRIN IV PRN (23:00)
[2023-03-22] MEDS ORDERED: IPRATROPIUM/ALBUTEROL SULFATE 3 ML SOLUTION IH PRN (23:30)
[2023-03-22 23:46] VITALS: PULSE 109; RESP 19; O2SAT 92
[2023-03-22] MEDS: IPRATROPIUM 0.5 MG/2.5 ML INH IH SCH (23:49)
[2023-03-23] VITALS (15 sets, daily range): BP systolic 116–151; BP diastolic 63–94; PULSE 60–109; RESP 18–22; O2SAT 89–93
[2023-03-23] MEDS: SOLU-MEDROL 125MG VIAL IV SCH ×3 (00:51→17:18)
[2023-03-23 01:21] LABS: SARS-CoV-2, RNA, NAAT NEGATIVE SARS CoV-2 (NEGATIVE)
[2023-03-23 01:26] LABS: INFLUENZA TYPE A Negative For Type A (NEGATIVE); INFLUENZA TYPE B Negative For Type B (NEGATIVE)
[2023-03-23] MEDS: BENZONATATE 100 MG CAPSULE PO PRN ×2 (01:57→12:26)
[2023-03-23] MEDS ORDERED: IOHEXOL-350 75 ML VIAL IV ONE (02:21)
[2023-03-23] MEDS: LEVOTHYROXINE 75 MCG TABLET PO SCH (05:41)
[2023-03-23] MEDS: IPRATROPIUM 0.5 MG/2.5 ML INH IH SCH ×4 (06:53→23:27)
[2023-03-23 07:14] LABS: EOSINOPHILS # (AUTO) 0.01 K/uL (0.00-0.70); EOSINOPHILS % (AUTO) 0.6 % (0.0-8.0); HEMATOCRIT 38.7 % (42-54); IMMATURE GRANULOCYTE ABSOLUTE 0.02 K/uL (0-1); LYMPHOCYTES # (AUTO) 0.4 K/uL (1.0-4.8); LYMPHOCYTES % (AUTO) 24.5 % (21.0-51.0); MEAN CORPUSCULAR HEMOGLOBIN 33.8 pg (27.0-33.0); MEAN CORPUSCULAR HGB CONC 34.1 g/dL (32.0-36.0); MONOCYTES # (AUTO) 0.1 K/uL (0.1-1.0); MONOCYTES % (AUTO) 3.1 % (3.0-13.0); NEUTROPHILS # (AUTO) 1.2 K/uL (1.8-7.7); NEUTROPHILS % (AUTO) 70.6 % (40.0-77.0); PLATELET COUNT (AUTO) 152 K/uL (130-400); RED BLOOD CELL COUNT(AUTO) 3.91 MIL/uL (4.50-6.20); RED CELL DISTRIBUTION WIDTH 11.9 % (11.0-15.5); WHITE BLOOD COUNT (AUTO) 1.6 K/uL (4.8-10.8)
[2023-03-23 07:33] LABS: ALBUMIN 2.8 g/dL (3.5-5.0); BILIRUBIN,TOTAL 0.5 mg/dL (0.2-1.0); CREATININE 0.6 mg/dL (0.5-1.5); MAGNESIUM 1.4 mg/dL (1.80-2.40); PHOSPHORUS 4.1 mg/dL (2.5-4.9); POTASSIUM 3.9 mmol/L (3.5-5.1); TOTAL PROTEIN, SERUM 6.1 g/dL (6.0-8.3)
[2023-03-23] MEDS ORDERED: SODIUM CHLORIDE 3% FOR INHALATION 4 ML/AMP VIAL.NEB IH ONE ×2 (07:36→07:40)
[2023-03-23] MEDS: PANTOPRAZOLE 40 MG TAB DR PO SCH (08:55)
[2023-03-23] MEDS: MULTIVITAMIN TABLET PO SCH (08:55)
[2023-03-23] MEDS: ASPIRIN 81 MG EC TAB PO SCH (08:55)
[2023-03-23] MEDS: OXYBUTYNIN CHLORIDE 5 MG TABLET PO SCH ×2 (08:56→20:10)
[2023-03-23] MEDS: DILTIAZEM 60MG TAB PO SCH ×2 (08:56→20:07)
[2023-03-23] MEDS: ASCORBIC ACID 500 MG TAB PO SCH (08:56)
[2023-03-23] MEDS: CHOLECALCIFEROL 2000 UNIT PO SCH (09:00)
[2023-03-23] MEDS ORDERED: MULTIVITS MINERALS PO SCH (09:00)
[2023-03-23] MEDS ORDERED: [UNRECOGNIZED DRUG - REMARK] PO SCH (09:00)
[2023-03-23] MEDS ORDERED: ASCORBIC ACID 500 MG TAB PO SCH (09:00)
[2023-03-23] MEDS: SALMETEROL IH SCH ×2 (09:00→20:10)
[2023-03-23] MEDS: PRESERVISION PO SCH (09:00)
[2023-03-23] MEDS: FLUTICASONE IH SCH ×2 (09:00→20:10)
[2023-03-23] MEDS ORDERED: LYCOPENE PO SCH (09:00)
[2023-03-23] MEDS ORDERED: RIVAROXABAN 2.5 MG TABLET PO SCH (09:00)
[2023-03-23] MEDS: SOLIFENACIN SUCCINATE 5 MG PO SCH (09:00)
[2023-03-23] MEDS ORDERED: [UNRECOGNIZED DRUG - OTHER] PO SCH (09:00)
[2023-03-23] MEDS ORDERED: NON-FORMULARY MEDICATION 1 EACH (Vit C/E/Zn/Coppr/Lutein/Zeaxan (Preservision Areds 2 Soft PO SCH (09:00)
[2023-03-23] MEDS ORDERED: MAGNESIUM 2GM PREMIX 50ML 50 ML IV SCH (11:00)
[2023-03-23] MEDS: FUROSEMIDE 20MG VIAL IV SCH ×2 (11:36→20:14)
[2023-03-23 13:20] LABS: CHOLESTEROL 158 mg/dL (<200); HDL CHOLESTEROL 75 mg/dL (29-71); LDL DIRECT 78 mg/dL (0-99); TRIGLYCERIDES 27 mg/dL (30-200)
[2023-03-23 13:21] LABS: HEMOGLOBIN A1C 5.4 % (4.0-6.0)
[2023-03-23] MEDS ORDERED: LEVOFLOXACIN 500 MG/D5W 100 ML 100 ML IV SCH (20:00)
[2023-03-23] MEDS: METRONIDAZOLE 500MG/100ML BAG 100 ML IVPB SCH (21:37)
[2023-03-23] MEDS: PSYLLIUM SEED 1 EACH PACKET PO SCH (21:37)
[2023-03-23] MEDS: ENOXAPARIN SODIUM 80 MG/0.8 ML SQ SCH (21:38)
[2023-03-23] MEDS: METOPROLOL TARTRATE 25 MG TAB PO SCH (21:38)
[2023-03-24] VITALS (7 sets, daily range): BP systolic 122–133; BP diastolic 71–92; PULSE 72–89; RESP 18–20; O2SAT 92–93
[2023-03-24] MEDS ORDERED: SOLU-MEDROL 125MG VIAL IV SCH (04:30)
[2023-03-24 05:19] LABS: HEMATOCRIT 39.4 % (42-54); IMMATURE GRANULOCYTE ABSOLUTE 0.02 K/uL (0-1); LYMPHOCYTES # (AUTO) 0.5 K/uL (1.0-4.8); LYMPHOCYTES % (AUTO) 10.4 % (21.0-51.0); MEAN CORPUSCULAR HGB CONC 34.5 g/dL (32.0-36.0); MEAN CORPUSCULAR VOLUME 98.5 fL (79-99); MONOCYTES # (AUTO) 0.4 K/uL (0.1-1.0); MONOCYTES % (AUTO) 7.5 % (3.0-13.0); NEUTROPHILS % (AUTO) 81.7 % (40.0-77.0); PLATELET COUNT (AUTO) 137 K/uL (130-400); RED CELL DISTRIBUTION WIDTH 11.9 % (11.0-15.5); WHITE BLOOD COUNT (AUTO) 4.9 K/uL (4.8-10.8)
[2023-03-24] MEDS: METRONIDAZOLE 500MG/100ML BAG 100 ML IVPB SCH (05:31)
[2023-03-24] MEDS: LEVOTHYROXINE 75 MCG TABLET PO SCH (05:31)
[2023-03-24 05:40] LABS: ALBUMIN 2.7 g/dL (3.5-5.0); BILIRUBIN,TOTAL 0.5 mg/dL (0.2-1.0); CREATININE 0.8 mg/dL (0.5-1.5); MAGNESIUM 1.3 mg/dL (1.80-2.40); POTASSIUM 3.4 mmol/L (3.5-5.1)
[2023-03-24] MEDS ORDERED: BUDESONIDE 0.5 MG/2 ML INH IH SCH (06:00)
[2023-03-24] MEDS: MAGNESIUM 2GM PREMIX 50ML 50 ML IV PRN ×2 (06:28→13:29)
[2023-03-24] MEDS: KCL 20 MEQ ERTAB PO PRN ×2 (06:29→09:18)
[2023-03-24] MEDS: IPRATROPIUM 0.5 MG/2.5 ML INH IH SCH ×2 (06:44→11:29)
[2023-03-24] MEDS ORDERED: KCL 20 MEQ ERTAB PO ONE ×2 (07:30→13:30)
[2023-03-24] MEDS ORDERED: MAGNESIUM 2GM PREMIX 50ML 50 ML IV SCH (07:30)
[2023-03-24] MEDS: SALMETEROL IH SCH (09:00)
[2023-03-24] MEDS: SOLIFENACIN SUCCINATE 5 MG PO SCH (09:00)
[2023-03-24] MEDS: PRESERVISION PO SCH (09:00)
[2023-03-24] MEDS: FLUTICASONE IH SCH (09:00)
[2023-03-24] MEDS: CHOLECALCIFEROL 2000 UNIT PO SCH (09:00)
[2023-03-24] MEDS: PANTOPRAZOLE 40 MG TAB DR PO SCH (09:08)
[2023-03-24] MEDS: METOPROLOL TARTRATE 25 MG TAB PO SCH (09:08)
[2023-03-24] MEDS: ASPIRIN 81 MG EC TAB PO SCH (09:08)
[2023-03-24] MEDS: ASCORBIC ACID 500 MG TAB PO SCH (09:09)
[2023-03-24] MEDS: OXYBUTYNIN CHLORIDE 5 MG TABLET PO SCH (09:09)
[2023-03-24] MEDS: MULTIVITAMIN TABLET PO SCH (09:09)
[2023-03-24] MEDS ORDERED: FLUT1DIS IH (09:10)
[2023-03-24] MEDS ORDERED: FURO20TA4 PO (09:10)
[2023-03-24] MEDS ORDERED: POTA20PA32 PO (09:11)
[2023-03-24] MEDS ORDERED: METO25TA6 PO (09:12)
[2023-03-24] MEDS ORDERED: MAGN400C PO (09:12)
[2023-03-24] MEDS ORDERED: PRED20TA3 PO (09:13)
[2023-03-24] MEDS: PSYLLIUM SEED 1 EACH PACKET PO SCH (09:15)
[2023-03-24] MEDS ORDERED: CEFP200T14 PO (09:16)
[2023-03-24] MEDS ORDERED: DOXY100C5 PO (09:17)
[2023-03-24] MEDS: DILTIAZEM 60MG TAB PO SCH (09:18)
[2023-03-24] MEDS: ENOXAPARIN SODIUM 80 MG/0.8 ML SQ SCH (09:22)
[2023-03-24] MEDS: FUROSEMIDE 20MG VIAL IV SCH (11:30)
[2023-03-24 12:44] LABS: MAGNESIUM 1.9 mg/dL (1.80-2.40); POTASSIUM 3.7 mmol/L (3.5-5.1)
== END 2023-03-24 14:00 | disposition home or self-care (01) | DRG 193 ==
LOC: EDH 12:46 → EDHIP 16:13 → 2AH 22:40
PROVIDERS: ADMIT Hospitalist; ATTEND Hospitalist
DX: J18.9 Pneumonia, unspecified organism (principal); I50.33 Acute on chronic diastolic (congestive) heart failure; J96.21 Acute and chronic respiratory failure with hypoxia; J44.1 Chronic obstructive pulmonary disease with (acute) exacerbation; E87.1 Hypo-osmolality and hyponatremia; I48.20 Chronic atrial fibrillation, unspecified; E83.42 Hypomagnesemia; E03.9 Hypothyroidism, unspecified; I11.0 Hypertensive heart disease with heart failure; Z20.822 Contact with and (suspected) exposure to COVID-19; I45.10 Unspecified right bundle-branch block; I48.0 Paroxysmal atrial fibrillation; I73.9 Peripheral vascular disease, unspecified; Z79.01 Long term (current) use of anticoagulants; Z87.01 Personal history of pneumonia (recurrent); Z87.891 Personal history of nicotine dependence; Z90.49 Acquired absence of other specified parts of digestive tract
CPT/HCPCS: 36415; 36600; 71045; 71100; 71270; 80053; 80061; 81001; 82306; 82550; 82803; 83036; 83735; 83874; 83880; 84100; 84132; 84145; 84443; 84484; 85025; 87071; 87077; 87088; 87186; 87205; 87635; 87804; 93005; 93306; 93356; 94640; 94664; 94667; 94668; G0378; J0456; J0696; J1650; J1940; J1956; J2930; J3475; J3490; Q9967; G8980-CI; G8983-CI

== ENCOUNTER 2023-08-01 12:35 | Inpatient (IN) | payer MEDICARE ==
[~2023-08-01] VITALS: Ht 182.9 cm; Wt 70.0 kg
[~2023-08-01 12:35] MED LIST changes: +CEFP200T14 PO; +DOXY100C5 PO; +FURO20TA4 PO; +MAGN400C PO; +METO25TA6 PO; -MULT-1224 PO; -MULT-1378 PO; +OXYB5TAB20 PO; +POTA20PA32 PO; +PRED20TA3 PO; +RIVA2.5T PO; -VIT1CAPS47 PO
[2023-08-01 13:03] LABS: BASOPHILS # (AUTO) 0.04 K/uL (0.00-0.20); BASOPHILS % (AUTO) 0.4 % (0.0-5.0); EOSINOPHILS % (AUTO) 1.1 % (0.0-8.0); HEMATOCRIT 36.3 % (42-54); IMMATURE GRANULOCYTE ABSOLUTE 0.08 K/uL (0-1); LYMPHOCYTES # (AUTO) 1.8 K/uL (1.0-4.8); LYMPHOCYTES % (AUTO) 19.6 % (21.0-51.0); MEAN CORPUSCULAR HEMOGLOBIN 33.6 pg (27.0-33.0); MEAN CORPUSCULAR HGB CONC 33.3 g/dL (32.0-36.0); MEAN CORPUSCULAR VOLUME 100.8 fL (79-99); MONOCYTES # (AUTO) 0.8 K/uL (0.1-1.0); MONOCYTES % (AUTO) 9.3 % (3.0-13.0); NEUTROPHILS # (AUTO) 6.2 K/uL (1.8-7.7); NEUTROPHILS % (AUTO) 68.7 % (40.0-77.0); PLATELET COUNT (AUTO) 180 K/uL (130-400)
[2023-08-01 13:09] LABS: ABG HCO3 23.8 mmol/L (21.0-28.0); ABG OXYGEN SATURATION 91.4 % (95.0-99.0); ABG PCO2 36 mmHg (35-48); ABG PH 7.435 (7.35-7.450); DEVICE COMMENT RRVERONICA; PO2, ARTERIAL BG 58.7 mmHg (83.0-108.0); VENT MODE, BG NC (ROOM AIR)
[2023-08-01 13:11] LABS: CREATININE 0.8 mg/dL (0.5-1.5); POTASSIUM 3.7 mmol/L (3.5-5.1)
[2023-08-01 13:16] LABS: ALBUMIN 3.1 g/dL (3.5-5.0); BILIRUBIN,TOTAL 0.9 mg/dL (0.2-1.0); TOTAL PROTEIN, SERUM 6.5 g/dL (6.0-8.3)
[2023-08-01 13:23] LABS: B-TYPE NATRIURETIC PEPTIDE 240 pg/mL (0-100)
[2023-08-01] MEDS ORDERED: INSULIN HUMULIN R 100 UNIT/ML 3ML SQ SCH (16:30)
[2023-08-01] MEDS ORDERED: CEFTRIAXONE 2GM VIAL IVPB SCH (16:30)
[2023-08-01] MEDS ORDERED: KCL 20 MEQ ERTAB PO PRN (17:00)
[2023-08-01] MEDS ORDERED: POTASSIUM CHLORIDE 10% ELIXIR 20 MEQ/15 ML UDCUP PO PRN (17:00)
[2023-08-01] MEDS ORDERED: ACETAMINOPHEN 650 MG SUPPOSITORY RC PRN (17:00)
[2023-08-01] MEDS ORDERED: POTASSIUM CHLORIDE 20MEQ/100ML 100 ML IV PRN ×2 (17:00)
[2023-08-01] MEDS ORDERED: GLUCAGON 1MG KIT 1 MG ML IM PRN (17:00)
[2023-08-01] MEDS ORDERED: DEXTROSE 50%-WATER 50 ML DISP.SYRIN IV PRN (17:00)
[2023-08-01] MEDS ORDERED: ONDANSETRON 4MG INJ IVP PRN (17:00)
[2023-08-01 17:24] LABS: HEMOGLOBIN A1C 5.2 % (4.0-6.0)
[2023-08-01 17:31] LABS: THYROID STIMULATING HORMONE 2.07 uIU/mL (0.36-3.74)
[2023-08-01] MEDS: SOLU-MEDROL 40MG VIAL IVP SCH (17:47)
[2023-08-01] MEDS: ZOSYN 3.375GM +NS 50ML IV SCH (17:49)
[2023-08-01] MEDS: IPRATROPIUM 0.5 MG/2.5 ML INH IH SCH (18:00)
[2023-08-01 18:04] LABS: SARS-CoV-2, RNA, NAAT NEGATIVE SARS CoV-2 (NEGATIVE)
[2023-08-01 18:08] LABS: INFLUENZA TYPE A Negative For Type A (NEGATIVE); INFLUENZA TYPE B Negative For Type B (NEGATIVE)
[2023-08-01 19:36] LABS: APPEARANCE,URINE CLEAR (CLEAR); BILIRUBIN,URINE NEGATIVE (NEGATIVE); COLOR,URINE LIGHT-YELLOW (YELLOW); GLUCOSE, URINE (UA) NEGATIVE (NEGATIVE); KETONES,URINE NEGATIVE (NEGATIVE); LEUKOCYTE ESTERASE ,URINE NEGATIVE Leu/uL (NEGATIVE); NITRATE,URINE NEGATIVE (NEGATIVE); OCCULT BLOOD,URINE NEGATIVE (NEGATIVE); PH,URINE 6.5 (5.0-8.0); PROTEIN,URINE NEGATIVE (NEGATIVE); UROBILINOGEN,URINE 0.2 mg/dL (0.2-1.0)
[2023-08-01 19:42] LABS: ADD UA MICROSCOPIC NO
[2023-08-01 19:59] VITALS: PULSE 104; RESP 22; O2SAT 90
[2023-08-01] MEDS: IPRATROPIUM/ALBUTEROL SULFATE 3 ML SOLUTION IH SCH (19:59)
[2023-08-01 20:19] VITALS: PULSE 105; RESP 18
[2023-08-01] MEDS: BUDESONIDE 0.5 MG/2 ML INH IH SCH (20:19)
[2023-08-01] MEDS: METOPROLOL TARTRATE 25 MG TAB PO SCH (20:36)
[2023-08-01] MEDS: FAMOTIDINE 20MG VIAL IV SCH (20:36)
[2023-08-01 20:45] VITALS: BP 150/75; PULSE 104; RESP 23
[2023-08-01 21:00] VITALS: O2SAT 95
[2023-08-01] MEDS: INSULIN HUMULIN R 100 UNIT/ML 3ML SQ SCH (21:00)
[2023-08-01] MEDS: ACETAMINOPHEN 325 MG TAB PO PRN (21:53)
[2023-08-01] MEDS ORDERED: MV-M1TAB28 PO (22:44)
[2023-08-01] MEDS ORDERED: ALBU2.5V2 IH (22:44)
[2023-08-01] MEDS ORDERED: AREDS 2 PO (22:44)
[2023-08-01] MEDS ORDERED: CHOL500051 PO (22:44)
[2023-08-01] MEDS ORDERED: DILT30TA38 PO (22:44)
[2023-08-01] MEDS ORDERED: FLUT1BLS8 IH (22:44)
[2023-08-01] MEDS ORDERED: ALBU6.7H14 IH (22:44)
[2023-08-01] MEDS ORDERED: DILT30TA3 PO (22:44)
[2023-08-01] MEDS ORDERED: MOME13HF7 IH (22:44)
[2023-08-01] MEDS ORDERED: LEVO88TA4 PO (22:44)
[2023-08-01] MEDS ORDERED: AZEL137S11 NS (22:44)
[2023-08-01] MEDS ORDERED: CLOP-31 PO (22:44)
[2023-08-01] MEDS: DIPHENHYDRAMINE HCL 25 MG CAPSULE PO PRN (22:46)
[2023-08-01 23:00] VITALS: BP 133/67; PULSE 85; RESP 21
[2023-08-02] VITALS (11 sets, daily range): BP systolic 103–133; BP diastolic 45–84; PULSE 52–103; RESP 18–20; O2SAT 93–99
[2023-08-02] MEDS: PANTOPRAZOLE 40 MG/VIAL IVP SCH ×2 (08:09→20:11)
[2023-08-02 08:15] LABS: HEMATOCRIT 31.3 % (42-54); IMMATURE GRANULOCYTE ABSOLUTE 0.03 K/uL (0-1); LYMPHOCYTES # (AUTO) 0.5 K/uL (1.0-4.8); LYMPHOCYTES % (AUTO) 13.7 % (21.0-51.0); MEAN CORPUSCULAR HEMOGLOBIN 33.1 pg (27.0-33.0); MEAN CORPUSCULAR HGB CONC 32.9 g/dL (32.0-36.0); MEAN CORPUSCULAR VOLUME 100.6 fL (79-99); MONOCYTES # (AUTO) 0.2 K/uL (0.1-1.0); NEUTROPHILS # (AUTO) 2.9 K/uL (1.8-7.7); NEUTROPHILS % (AUTO) 80.5 % (40.0-77.0); PLATELET COUNT (AUTO) 134 K/uL (130-400); RED BLOOD CELL COUNT(AUTO) 3.11 MIL/uL (4.50-6.20); RED CELL DISTRIBUTION WIDTH 14.1 % (11.0-15.5); WHITE BLOOD COUNT (AUTO) 3.6 K/uL (4.8-10.8)
[2023-08-02 08:24] LABS: CREATININE 0.6 mg/dL (0.5-1.5); MAGNESIUM 1.3 mg/dL (1.80-2.40); POTASSIUM 3.9 mmol/L (3.5-5.1)
[2023-08-02 08:39] LABS: B-TYPE NATRIURETIC PEPTIDE 334 pg/mL (0-100)
[2023-08-02] MEDS: GUAIFENESIN-CODEINE 5 ML SYRUP PO PRN (09:46)
[2023-08-02] MEDS: AZITHROMYCIN 500MG+NS 250ML 250 ML IVPB SCH (09:55)
[2023-08-02] MEDS ORDERED: IOHEXOL-350 50ML VIAL IV ONE (12:50)
[2023-08-02] MEDS: SOLU-MEDROL 40MG VIAL IVP SCH (13:00)
[2023-08-02] MEDS: DILTIAZEM 60MG TAB PO SCH (14:23)
[2023-08-02] MEDS: MAGNESIUM 2GM PREMIX 50ML 50 ML IV PRN (19:06)
[2023-08-03] VITALS (14 sets, daily range): BP systolic 121–138; BP diastolic 62–73; PULSE 58–99; RESP 18–20; O2SAT 92–99
[2023-08-03 05:26] LABS: HEMATOCRIT 30.1 % (42-54); IMMATURE GRANULOCYTE ABSOLUTE 0.03 K/uL (0-1); LYMPHOCYTES # (AUTO) 0.3 K/uL (1.0-4.8); LYMPHOCYTES % (AUTO) 6.4 % (21.0-51.0); MEAN CORPUSCULAR HEMOGLOBIN 33.6 pg (27.0-33.0); MEAN CORPUSCULAR HGB CONC 33.2 g/dL (32.0-36.0); MONOCYTES # (AUTO) 0.2 K/uL (0.1-1.0); MONOCYTES % (AUTO) 4.6 % (3.0-13.0); NEUTROPHILS % (AUTO) 88.3 % (40.0-77.0); PLATELET COUNT (AUTO) 116 K/uL (130-400); RED BLOOD CELL COUNT(AUTO) 2.98 MIL/uL (4.50-6.20); WHITE BLOOD COUNT (AUTO) 4.6 K/uL (4.8-10.8)
[2023-08-03] MEDS: LEVOTHYROXINE 88 MCG TABLET PO SCH (06:01)
[2023-08-03 06:07] LABS: ALBUMIN 2.7 g/dL (3.5-5.0); BILIRUBIN,TOTAL 0.5 mg/dL (0.2-1.0); CREATININE 0.8 mg/dL (0.5-1.5); POTASSIUM 3.8 mmol/L (3.5-5.1); TOTAL PROTEIN, SERUM 5.6 g/dL (6.0-8.3)
[2023-08-03 06:25] LABS: B-TYPE NATRIURETIC PEPTIDE 177 pg/mL (0-100)
[2023-08-03] MEDS: CLOPIDOGREL 75MG TAB PO SCH (11:08)
[2023-08-03] MEDS: ASPIRIN 81 MG EC TAB PO SCH (11:08)
[2023-08-03] MEDS: RIVAROXABAN 2.5 MG TABLET PO SCH (11:14)
[2023-08-04] VITALS (15 sets, daily range): BP systolic 128–146; BP diastolic 66–76; PULSE 88–107; RESP 18–20; O2SAT 92–99
[2023-08-04] MEDS: SOLU-MEDROL 40MG VIAL IVP SCH ×2 (00:56→11:45)
[2023-08-04 05:43] LABS: HEMATOCRIT 29.1 % (42-54); IMMATURE GRANULOCYTE ABSOLUTE 0.03 K/uL (0-1); LYMPHOCYTES # (AUTO) 0.3 K/uL (1.0-4.8); LYMPHOCYTES % (AUTO) 8.7 % (21.0-51.0); MEAN CORPUSCULAR HEMOGLOBIN 33.2 pg (27.0-33.0); MEAN CORPUSCULAR VOLUME 100.7 fL (79-99); MONOCYTES # (AUTO) 0.2 K/uL (0.1-1.0); MONOCYTES % (AUTO) 4.6 % (3.0-13.0); NEUTROPHILS # (AUTO) 3.4 K/uL (1.8-7.7); NEUTROPHILS % (AUTO) 85.9 % (40.0-77.0); PLATELET COUNT (AUTO) 121 K/uL (130-400); RED BLOOD CELL COUNT(AUTO) 2.89 MIL/uL (4.50-6.20); RED CELL DISTRIBUTION WIDTH 13.9 % (11.0-15.5); WHITE BLOOD COUNT (AUTO) 3.9 K/uL (4.8-10.8)
[2023-08-04 06:05] LABS: CREATININE 0.6 mg/dL (0.5-1.5); POTASSIUM 3.8 mmol/L (3.5-5.1)
[2023-08-04] MEDS: IPRATROPIUM/ALBUTEROL SULFATE 3 ML SOLUTION IH ONE (10:24)
[2023-08-05] VITALS (7 sets, daily range): BP systolic 148–157; BP diastolic 80–89; PULSE 90–115; RESP 18–20; O2SAT 92–95
[2023-08-05 04:59] LABS: BASOPHILS # (AUTO) 0.01 K/uL (0.00-0.20); BASOPHILS % (AUTO) 0.2 % (0.0-5.0); HEMATOCRIT 32.2 % (42-54); IMMATURE GRANULOCYTE ABSOLUTE 0.04 K/uL (0-1); LYMPHOCYTES # (AUTO) 0.4 K/uL (1.0-4.8); LYMPHOCYTES % (AUTO) 7.5 % (21.0-51.0); MEAN CORPUSCULAR HEMOGLOBIN 32.9 pg (27.0-33.0); MEAN CORPUSCULAR HGB CONC 32.3 g/dL (32.0-36.0); MEAN CORPUSCULAR VOLUME 101.9 fL (79-99); MONOCYTES # (AUTO) 0.2 K/uL (0.1-1.0); MONOCYTES % (AUTO) 4.6 % (3.0-13.0); NEUTROPHILS # (AUTO) 4.2 K/uL (1.8-7.7); NEUTROPHILS % (AUTO) 86.9 % (40.0-77.0); PLATELET COUNT (AUTO) 111 K/uL (130-400); RED BLOOD CELL COUNT(AUTO) 3.16 MIL/uL (4.50-6.20); RED CELL DISTRIBUTION WIDTH 13.5 % (11.0-15.5); WHITE BLOOD COUNT (AUTO) 4.8 K/uL (4.8-10.8)
[2023-08-05 05:18] LABS: CREATININE 0.7 mg/dL (0.5-1.5); POTASSIUM 3.9 mmol/L (3.5-5.1)
== END 2023-08-05 16:35 | DRG 177 ==
LOC: EDH 12:35 → EDHIP 16:18 → 3AH 20:45
PROVIDERS: ADMIT Internal Medicine; ATTEND Internal Medicine
DX: J15.69 Pneumonia due to other Gram-negative bacteria (principal); J96.21 Acute and chronic respiratory failure with hypoxia; J44.1 Chronic obstructive pulmonary disease with (acute) exacerbation; J44.0 Chronic obstructive pulmonary disease with (acute) lower respiratory infection; D84.9 Immunodeficiency, unspecified; E44.0 Moderate protein-calorie malnutrition; I48.91 Unspecified atrial fibrillation; E03.9 Hypothyroidism, unspecified; E11.36 Type 2 diabetes mellitus with diabetic cataract; E78.5 Hyperlipidemia, unspecified; I10 Essential (primary) hypertension; Z96.642 Presence of left artificial hip joint; Z20.822 Contact with and (suspected) exposure to COVID-19; J43.9 Emphysema, unspecified; E11.51 Type 2 diabetes mellitus with diabetic peripheral angiopathy without gangrene; R62.7 Adult failure to thrive; K21.9 Gastro-esophageal reflux disease without esophagitis; Z77.090 Contact with and (suspected) exposure to asbestos; Z99.81 Dependence on supplemental oxygen; Z79.01 Long term (current) use of anticoagulants; Z79.51 Long term (current) use of inhaled steroids; Z87.891 Personal history of nicotine dependence; Z91.81 History of falling
CPT/HCPCS: 36415; 36600; 71045; 71270; 73521; 80048; 80053; 81003; 82803; 82948; 83036; 83735; 83880; 84145; 84443; 84484; 85025; 85378; 86140; 87071; 87077; 87186; 87205; 87635; 87804; 92610; 93005; 93306; 94640; 94664; 94667; 94668; C9113; G0378; J0456; J2543; J2920; J3475; J3490; Q0163; Q9967

== ENCOUNTER → 2023-12-16 | Outpatient (CLI) | payer MEDICARE ==
[2023-12-16 12:14] LABS: CREATININE 0.7 mg/dL (0.5-1.3); MAGNESIUM 1.1 mg/dL (1.80-2.40); POTASSIUM 4.4 mmol/L (3.5-5.1)
== END | disposition home or self-care (01) ==
LOC: LAB 11:22
PROVIDERS: ATTEND Physician Assistant
DX: I48.0 Paroxysmal atrial fibrillation (principal)
CPT/HCPCS: 36415; 80048; 83735

== ENCOUNTER 2024-04-07 10:56 | Inpatient (IN) | payer MEDICARE ==
[2024-04-07] VITALS (28 sets, daily range): BP systolic 123–186; BP diastolic 61–80; PULSE 87–123; RESP 16–28; TEMP 97.6; O2SAT 89–98
[~2024-04-07] VITALS: Ht 182.9 cm; Wt 74.0 kg
--- NOTE | 2024-04-07 10:57 | NUR ---
PATIENT ARRIVED FROM [facility]IA [facility].PLCED INTO BED 4
[2024-04-07 11:19] LABS: ABG BASE EXCESS 0.2 mmol/L (-2.0-3.0); ABG HCO3 23.1 mmol/L (21.0-28.0); ABG OXYGEN SATURATION 86.4 % (94.0-98.0); ABG PCO2 33 mmHg (35-48); ABG PH 7.469 (7.350-7.450); DEVICE COMMENT RBLARRY; PO2, ARTERIAL BG 47.6 mmHg (83.0-108.0); VENT MODE, BG NC (ROOM AIR)
[2024-04-07 11:31] LABS: BASOPHILS # (AUTO) 0.04 K/uL (0.00-0.20); BASOPHILS % (AUTO) 0.5 % (0.0-5.0); EOSINOPHILS # (AUTO) 0.51 K/uL (0.00-0.70); HEMATOCRIT 41.7 % (42-54); IMMATURE GRANULOCYTE ABSOLUTE 0.02 K/uL (0-1); LYMPHOCYTES # (AUTO) 1.1 K/uL (1.0-4.8); MEAN CORPUSCULAR HEMOGLOBIN 32.4 pg (27.0-33.0); MEAN CORPUSCULAR VOLUME 92.5 fL (79-99); MONOCYTES # (AUTO) 0.3 K/uL (0.1-1.0); MONOCYTES % (AUTO) 3.8 % (3.0-13.0); NEUTROPHILS # (AUTO) 5.3 K/uL (1.8-7.7); NEUTROPHILS % (AUTO) 73.4 % (40.0-77.0); PLATELET COUNT (AUTO) 183 K/uL (130-400); RED BLOOD CELL COUNT(AUTO) 4.51 MIL/uL (4.50-6.20); RED CELL DISTRIBUTION WIDTH 12.4 % (11.0-15.5); WHITE BLOOD COUNT (AUTO) 7.3 K/uL (4.8-10.8)
[2024-04-07 11:37] LABS: COVID19 (SARS ANTIGEN RAPID) PRESUMPTIVE NEGATIVE (NEGATIVE); INFLUENZA TYPE A Negative For Type A (NEGATIVE); INFLUENZA TYPE B Negative For Type B (NEGATIVE)
--- NOTE | 2024-04-07 11:38 | ERN ---
General Chief Complaint: Shortness of Breath Stated Complaint: SOB Time Seen by MD: 10:59 Source: patient History of Present Illness Initial Comments PATIENT IS A AN 84-YEAR-OLD MALE WITH A EXTENSIVE HISTORY OF REPEATED COPD EXACERBATIONS IN THE PAST COMING IN TO BE EVALUATED FOR ANOTHER FLARE-UP. PER PATIENT THESE SYMPTOMS BEGAN A COUPLE OF DAYS AGO. PER EMS PATIENT WAS SATTING IN THE LOW 70S ON R[address]TE. Allergies: Coded Allergies: No Known Allergies (Verified Allergy, Unknown, 08/03/17) Home Meds No Active Prescriptions or Reported Meds Past Medical History Past Medical History: A-Fib, COPD, GERD, High Cholesterol, Hypertension Medical History Other: EMPHYSEMA Past Surgical History: Cholecystectomy Social History Social History: Negative, Lives with family ROS Dictation CONSTITUTIONAL: NO CHILLS, NO FEVER, NO WEAKNESS, NO DIAPHORESIS, NO MALAISE. HEAD/FACE: NO SIGNS OF TRAUMA. EENT: NO EYE PAIN, NO BLURRED VISION, NO TEARING, NO DOUBLE VISION, NO EAR PAIN, NO EAR DISCHARGE, NO NOSE PAIN, NO NASAL CONGESTION, NO THROAT PAIN, NO THROAT SWELLING, NO MOUTH PAIN. RESPIRATORY: NO COUGH, NO ORTHOPNEA, SOB, NO STRIDOR, NO WHEEZING. CARDIOVASCULAR: NO CHEST PAIN, NO EDEMA, NO PALPITATIONS, NO SYNCOPE. GASTROINTESTINAL/ABDOMINAL: NO ABDOMINAL PAIN, NO CONSTIPATION, NO DIARRHEA, NO NAUSEA, NO VOMITING. GENITOURINARY: NO ABNORMAL DISCHARGE, NO DYSURIA, NO FREQUENT URINATION, NO HEMATURIA. NO COMPLAINTS OF PAIN IN THE GENITALS. MUSCULOSKELETAL: NO BACK PAIN, NO GOUT, NO JOINT PAIN, NO JOINT SWELLING, NO MUSCLE PAIN, NO MUSCLE STIFFNESS, NO NECK PAIN. INTEGUMENTARY: NO CHANGE IN COLOR, NO CHANGE IN HAIR/NAILS, NO DRYNESS, NO LESION, NO LUMPS, NO RASH. NEUROLOGICAL/PSYCH: NO ANXIETY, NOT DEPRESSED, NO EMOTIONAL PROBLEM, NO HEADACHE, NO NUMBNESS, NO PRE-EXISTING DEFICIT, NO HISTORY OF SEIZURES, NO TREMORS, NO WEAKNESS. HEMATOLOGIC/LYMPHATIC: NOT ANEMIC, NO HISTORY OF BLOOD CLOTS, NO APPARENT BLEEDING, NO BRUISING, GLANDS NOT SWOLLEN. ALL SYSTEMS NEGATIVE, EXCEPT NOTED. Physical Exam Physical Exam Dictation VITAL SIGNS: REVIEWED. GENERAL APPEARANCE: ALERT, ORIENTED X3, NO ACUTE DISTRESS, OBESE. HEAD AND FACE: NON-TRAUMATIC. EYES: PERRL, PINK CONJUNCTIVAS, EYELID NO TRAUMA, ANTERIOR CHAMBER CLEAR. EARS: PINNAS INTACT AND NO SIGNS OF TRAUMA OR ERYTHEMA. EAR CANALS CLEAR AND NO DISCHARGE. TMS NO ERYTHEMA. NOSE: NO DISCHARGE, NO BLEEDING. OROPHARYNX: MOUTH NORMAL, TEETH NO CARIES, TONGUE PINK. PHARYNX CLEAR, NO ERYTHEMA. TONSILS NO EXUDATES, NO ABSCESSES NOTED. MUCOUS MEMBRANE MOIST. NECK: SUPPLE, NON-TENDER, NO THYROMEGALY, NO MASSES, NO JVD, NO BRUITS. BREAST: DEFERRED. CHEST: NO TENDERNESS, NO CREPITUS, NO PARADOXICAL MOVEMENT, NO RETRACTIONS. LUNGS: CLEAR, WELL-VENTILATED, SYMMETRIC, NO RALES, NO WHEEZING, RHONCHI, STRIDOR, GOOD BREATH SOUNDS BILATERALLY. HEART: REGULAR RATE, REGULAR RHYTHM, NO MURMUR, NO GALLOPS. VASCULAR: NO PERIPHERAL EDEMA. ABDOMEN: SOFT, POSITIVE BOWEL SOUNDS, NONDISTENDED, NO GUARDING, NONTENDER, NO REBOUND, NO MASSES NO HEPATOMEGALY, NO SPLENOMEGALY, NO STODDARD'S SIGN, NO HERNIAS. RECTAL: DEFERRED. GENITAL: DEFERRED. NEUROLOGICAL: NORMAL SPEECH, GROSS MOTOR FUNCTION INTACT, GROSS SENSORY FUNCTION INTACT. MUSCULOSKELETAL: NECK NONTENDER, FULL RANGE OF MOTION, BACK NONTENDER, FULL RANGE OF MOTION. EXTREMITIES: NONTENDER, FULL RANGE OF MOTION. SKIN: COLOR PINK, DRY, NO TURGOR, NO RASH, NO LACERATIONS, NO ABRASIONS, NO CONTUSIONS. LYMPHATICS: DEFERRED. Results Laboratory and Microbiology Lab and Micro Result Laboratory Tests Test 04/07/24 11:08 04/07/24 11:10 04/07/24 11:17 White Blood Count 7.3 K/uL (4.8-10.8) Red Blood Count 4.51 MIL/uL (4.50-6.20) Hemoglobin 14.6 g/dL (14.0-18.0) Hematocrit 41.7 % (42-54) L Mean Corpuscular Volume 92.5 fL (79-99) Mean Corpuscular Hemoglobin 32.4 pg (27.0-33.0) Mean Corpuscular Hemoglobin Concent 35.0 g/dL (32.0-36.0) Red Cell Distribution Width 12.4 % (11.0-15.5) Platelet Count 183 K/uL (130-400) Mean Platelet Volume 9.7 fL (7.5-10.5) Immature Granulocyte % (Auto) 0.3 % (0-1) Neutrophils (%) (Auto) 73.4 % (40.0-77.0) Lymphocytes (%) (Auto) 15.0 % (21.0-51.0) L Monocytes (%) (Auto) 3.8 % (3.0-13.0) Eosinophils (%) (Auto) 7.0 % (0.0-8.0) Basophils (%) (Auto) 0.5 % (0.0-5.0) Neutrophils # (Auto) 5.3 K/uL (1.8-7.7) Lymphocytes # (Auto) 1.1 K/uL (1.0-4.8) Monocytes # (Auto) 0.3 K/uL (0.1-1.0) Eosinophils # (Auto) 0.51 K/uL (0.00-0.70) Basophils # (Auto) 0.04 K/uL (0.00-0.20) Absolute Immature Granulocyte (auto 0.02 K/uL (0-1) Nucleated Red Blood Cells 0.0 % (0.0-0.19) Prothrombin Time 14.1 SEC (9.6-11.6) H Prothromb Time International Ratio 1.33 (0.85-1.15) H Activated Partial Thromboplast Time 31.9 SEC (26.3-35.5) Sodium Level 133 mmol/L (136-145) L Potassium Level 4.3 mmol/L (3.5-5.1) Chloride Level 95 mmol/L (101-111) L Carbon Dioxide Level 29 mmol/L (21-32) Blood Urea Nitrogen 12 mg/dL (7-18) Creatinine 0.6 mg/dL (0.5-1.3) Glomerular Filtration Rate Calc 95 mL/min (>90) Random Glucose 128 mg/dL (70-105) H Lactic Acid Level 1.7 mmol/L (0.8-2.5) Total Calcium 9.3 mg/dL (8.5-10.1) Total Creatine Kinase 72 U/L (21-232) Troponin I High Sensitivity 13 ng/L (4-75) B-Type Natriuretic Peptide 114 pg/mL (0-100) H Procalcitonin < 0.05 ng/mL (0.05-0.5) L Influenza Type A Antigen Negative For Type A Influenza Type B Antigen Negative For Type B SARS-CoV-2 Antigen (Rapid) PRESUMPTIVE NEGATIVE Blood Gas Specimen Type Arterial Arterial Blood pH 7.469 (7.350-7.450) Arterial Blood Partial Pressure CO2 33 mmHg (35-48) L Arterial Blood Partial Pressure O2 47.6 mmHg (83.0-108.0) Arterial Blood HCO3 23.1 mmol/L (21.0-28.0) Arterial Blood Oxygen Saturation 86.4 % (94.0-98.0) L Arterial Blood Base Excess 0.2 mmol/L (-2.0-3.0) Blood Gas Temperature 37.0 CELSIUS (35.5-37.0) Blood Gas Flow-by 5.00 L/min (0.00-15.00) Blood Gas Vent Mode NC (ROOM AIR) FiO2 40.0 % Blood Gas Specimen Comment RBLARRY Labs Reviewed?: Yes EKG/XRAY/US/CT/MRI EKG Comment 04/07/2024 TIME 11:02 A.M. VENTRICULAR RATE 98 SINUS [address] [place] [address] WAVE ELEVATION OR DEPRESSION MDM MDM: DIFFERENTIAL DIAGNOSIS: RESPIRATORY DISTRESS, ACUTE ON CHRONIC COPD EXACERBATION, PNEUMONITIS RATIONALE: TESTS CONSIDERED AND ORDERED SECONDARY TO SHARED DECISION MAKING INCLUDE: LABS, ECG AND RADIOLOGY PREVIOUS OUTSIDE RECORDS REVIEWED: OLD ER VISITS. RISK OF COMPLICATION AND/OR MORBIDITY OR MORTALITY OF PATIENT MANAGEMENT: NONE MEDICATIONS-PER MEDICATION RECONCILIATION NEED FOR HOSPITALIZATION: PATIENT DOES MEET CRITERIA FOR HOSPITALIZATION. NEED FOR EMERGENCY MAJOR/MINOR SURGERY: NO THERE ARE NO SOCIAL CONCERNS WITH THIS PATIENT. PRESCRIPTION DRUG MANAGEMENT PRESCRIPTIONS WILL INCLUDE SYMPTOMATIC CARE PATIENT'S PRIOR EXTERNAL MEDICAL RECORDS FROM OTHER ER VISITS WERE REVIEWED BY ME INDICATED. PRIOR TESTING AND RESULTS FROM PREVIOUS VISITS WERE REVIEWED. PRIOR TESTS WERE TAKEN INTO ACCOUNT WITH MEDICAL DECISION MAKING AND RESOURCE UTILIZATION, INDEPENDENT HISTORIAN/HISTORIANS WERE USED TO OBTAIN COMPLETE MEDICAL HISTORY. I INDEPENDENTLY INTERPRETED THE TEST THAT WERE PERFORMED, RESULTS WERE REVIEWED BY ME AND CONSIDERED FINDINGS ON RADIOLOGY IF ORDERED. MEDICAL MANAGEMENT AND EXAMINATION INTERPRETATION DISCUSSIONS WERE HAD BY ME WITH OTHER QUALIFIED HEALTHCARE PROFESSIONALS INDICATED FOR THE PATIENT'S CARE. ED Course Orders Procedure Category Date Status Time Cbc With Differential LAB 04/07/24 Complete 10:59 Prothrombin Time With LAB 04/07/24 Complete INR 10:59 B-Type Natriuretic LAB 04/07/24 Complete Peptide 10:59 Chest 1vw RAD 04/07/24 Resulted 10:59 12 Lead Ekg Tracing- EKG 04/07/24 Logged Technical 10:59 Creatine Kinase, Total LAB 04/07/24 Complete 10:59 Urinalysis Profile LAB 04/07/24 Logged 10:59 Partial LAB 04/07/24 Complete Thromboplastin Time 10:59 Basic Metabolic Panel LAB 04/07/24 Complete 10:59 Ipratropium/Albuterol PHA 04/07/24 Complete Neb (Duoneb) 11:00 Covid19 (Sars Antigen LAB 04/07/24 Complete Rapid) 11:02 Influenza Type A & B, LAB 04/07/24 Complete Rapid 11:02 Blood Cult LENNIE 04/07/24 Logged 11:03 Urinalysis Profile LAB 04/07/24 Logged 11:03 Troponin I High LAB 04/07/24 Complete Sensitivity 11:03 Procalcitonin LAB 04/07/24 Complete 11:03 Lactic Acid LAB 04/07/24 Complete 11:03 Culture Urine LENNIE 04/07/24 Logged 11:03 0.9%Nacl 1000ml (Ns PHA 04/07/24 Verified 1000ml) 11:30 Arterial Blood Gas LAB 04/07/24 Complete 11:17 Diazepam 5 Mg/Ml 2 Ml PHA 04/07/24 Complete Syg (Valium 5 Mg/M 11:19 Creatine Kinase, Total LAB 04/07/24 Complete 11:08 Ceftriaxone 1g Vial PHA 04/07/24 Complete (Rocephine 1g Inj) 12:30 Azithromycin 500mg+Ns PHA 04/07/24 In Process 250ml (Azithromyci 12:13 Current Medications Medications (Trade) Dose Ordered Sig/Luciana Route PRN Reason Start Time Stop Time Status Last Admin Dose Admin Albuterol (DUOneb) 2 udvial ONCE ONCE IH 04/07/24 11:00 04/07/24 11:01 DC 04/07/24 11:44 Azithromycin 250 ml @ 250 mls/hr Q24H STAT IVPB 04/07/24 12:13 04/07/24 13:12 Ceftriaxone Sodium (ROCEphine 1G INJ) 1 gm ONCE ONCE IVPB 04/07/24 12:30 04/07/24 12:31 DC 04/07/24 12:34 Diazepam (VALium 5 MG/ML 2 ML SYG) 5 mg ONCE STAT IV 04/07/24 11:19 04/07/24 11:21 DC 04/07/24 11:40 Sodium Chloride 3,117 ml @ 1,039 mls/hr ONCE ONCE IV 04/07/24 11:30 04/07/24 14:29 04/07/24 12:33 Vital Signs Date Time Temp Pulse Resp B/P (MAP) Pulse Ox O2 Delivery O2 Flow Rate FiO2 04/07/24 12:16 100 20 141/76 92 Bi-PAP+ 100 04/07/24 11:40 100 26 04/07/24 11:10 97.9 81 26 165/87 82 Nasal Cannula* 6 44 04/07/24 10:57 97.9 106 22 188/95 83 Room Air DX & DISP Disposition: Inpatient Decision to Admit Time: 12:14 Departure Impression: Primary Impression: COPD exacerbation Additional Impression: Pneumonitis Condition: Stable Scripts No Active Prescriptions or Reported Meds Referrals: FELIX HEALY MD (PCP) GIDEON SPARKS MD Apr 07, 2024 11:38
[2024-04-07] MEDS: diazePAM 5 MG/ML 2 ML SYG IV STA (11:40)
[2024-04-07 11:43] LABS: CREATININE 0.6 mg/dL (0.5-1.3); POTASSIUM 4.3 mmol/L (3.5-5.1)
[2024-04-07 11:44] LABS: INR 1.33 (0.85-1.15); PROTHROMBIN TIME 14.1 SEC (9.6-11.6)
[2024-04-07] MEDS: IpraTROPium/alBUTERol SULFATE 3 ML SOLUTION IH ONE ×2 (11:44→23:36)
[2024-04-07 11:46] LABS: PARTIAL THROMBOPLASTIN TIME 31.9 SEC (26.3-35.5)
[2024-04-07 11:57] LABS: B-TYPE NATRIURETIC PEPTIDE 114 pg/mL (0-100)
--- NOTE | 2024-04-07 12:02 | HMCIMG ---
CHEST 1VW HISTORY: Shortness of breath COMPARISON: 08/04/2023 FINDINGS: A frontal projection of the chest was obtained. Mild bilateral pulmonary infiltrates are seen may be related to mild pulmonary vascular congestion with possible superimposed pneumonitis. The heart is borderline enlarged. Degenerative changes are seen. Aortic calcifications are seen. IMPRESSION: 1. Mild bilateral pulmonary infiltrates are seen may be related to mild pulmonary vascular congestion with possible superimposed pneumonitis.
[2024-04-07] MEDS: [UNRECOGNIZED DRUG - OTHER] IV ONE (12:33)
[2024-04-07] MEDS: cefTRIAXone 1G VIAL IVPB ONE (12:34)
[2024-04-07] MEDS: AZITHROMYCIN 500MG+NS 250ML 250 ML IVPB STA (12:51)
--- NOTE | 2024-04-07 12:53 | HP ---
[facility] HISTORY AND PHYSICAL Date of Service: Apr 07, 2024 Time of Service: 12:53 HISTORY OF PRESENT ILLNESS: Date of service: 04/07/2024 84-year-old male with a past medical history of COPD, hypertension, hyperlipidemia, PVD, history of atrial fibrillation who presented to the hospital secondary to shortness on breath and cough. Patient currently is on BiPAP when seen at bedside. Patient states he has a chronic COPD and is on 4 L oxygen at home. For the past few days he has noted that he is having increasing cough with productive sputum which is yellowish white color. He denies any fever, chills, chest pain, abdominal pain, nausea, vomiting. Spells he also feels nauseated. He denies any smoking. Labs in the ED were notable for white count of 7.3, hemoglobin was 14.6, platelet count [id number], sodium was 133, potassium was 4.3, creatinine was 0.6, Chest x-ray showed mild congestive changes. In the ED patient was initially placed on non-rebreather but had persistent hypoxia. He was subsequently placed on BiPAP support. REVIEW OF SYSTEMS CONSTITUTIONAL: Denies fevers, chills, or night sweats. No unintentional weight loss reported. NEUROLOGICAL: Denies headache, amaurosis fugax, motor weakness, sensory deficit, vertigo/spinning sensation, gait abnormalities, or tremors. ENT: No hearing loss, otalgia, otorrhea, rhinitis, rhinorrhea, hoarseness, or sore throat. CARDIOVASCULAR: Denies any exertional angina, dyspnea on exertion, orthopnea, paroxysmal nocturnal dyspnea, palpitations, life-threatening arrhythmias, claudication. PULMONARY: , sputum production, shortness of breath, denied any hemoptysis GASTROINTESTINAL: Denies any type of dysphagia to either liquids or solids. Denies nausea, vomiting, pyrosis, early satiety, abdominal pain, diarrhea, constipation, or changes in stool consistency or caliber. Denies coffee-ground emesis, hematemesis, hematochezia, or melanotic stools. GENITOURINARY: Denies frequency, urgency, nocturia, hematuria or incontinence (Storage/Irritative symptoms.) Low urinary stream, straining to void, urinary intermittency or hesitancy, splitting of the voiding stream, terminal dribbling. ENDOCRINOLOGIC: Denies polyuria, polydipsia, polyphagia or heat/cold intolera nces. HEMATOLOGIC: Denies thrombophilia/previous clots, or coagulopathy/bleeding disorders. ONCOLOGIC: Denies personal history of malignancy. DERMATOLOGIC: Denies rashes or pruritus. PSYCHIATRIC: Denies any suicidal or homicidal ideation. Denies hallucinations. PAST MEDICAL HISTORY: History of COPD, history of PVD, history of atrial fibrillation PAST SURGICAL HISTORY: history of cholecystectomy PAST SOCIAL HISTORY: Ex smoker quit more than 30 years ago. He drinks wine daily. Denied any drug use FAMILY HISTORY: Denied any Pertinent family history Coded Allergies: No Known Allergies (Verified Allergy, Unknown, 08/03/17) PHYSICAL EXAM GENERAL APPEARANCE: The patient is awake, alert, and oriented, in no acute cardiopulmonary distress. NEUROLOGICAL: Cranial nerves II-XII grossly intact. Motor is 5/5 in bilateral upper and lower extremities proximal to distal. No sensory deficits. HEENT: Face is symmetric. Pupils are equal and reactive. Extraocular movements are intact. NECK: Supple. No JVD. No thyromegaly. No submental, submandibular, pre- /postauricular, occipital or supraclavicular lymphadenopathy. CHEST: Normal chest expansion. No Telemetry. LUNGS: Patient has wheezing present bilaterally. CARDIOVASCULAR: Regular. S1 and S2 normal. No appreciable rubs, murmurs or gallops. ABDOMEN: Soft, nontender, and nondistended. There is no rebound, voluntary guarding, or rigidity. : Deferred. No Booker. EXTREMITIES: Non-edematous and not cyanotic. No clubbing. Good capillary refill. SKIN: No skin breakdown. Vital Sign (Last 24 Hours) 04/07/24 04/07/24 11:10 12:16 Temp 97.9 Pulse 100 Resp 20 B/P (MAP) 141/76 Pulse Ox 92 O2 Delivery Bi-PAP+ O2 Flow Rate 6 FiO2 100 LABS: Laboratory: Test 04/07/24 11:17 04/07/24 11:10 04/07/24 11:08 Range/Units Blood Gas Specimen Type Arterial Arterial Blood pH 7.469 H 7.350-7.450 Arterial Blood Partial Pressure CO2 33 L 35-48 mmHg Arterial Blood Partial Pressure O2 47.6 *L 83.0-108.0 mmHg Arterial Blood HCO3 23.1 21.0-28.0 mmol/L Arterial Blood Oxygen Saturation 86.4 L 94.0-98.0 % Arterial Blood Base Excess 0.2 -2.0-3.0 mmol/L Blood Gas Temperature 37.0 35.5-37.0 CELSIUS Blood Gas Flow-by 5.00 0.00-15.00 L/min Blood Gas Vent Mode NC ROOM AIR FiO2 40.0 % Blood Gas Specimen Comment RBLARRY Influenza Type A Antigen Negative For Type A NEGATIVE Influenza Type B Antigen Negative For Type B NEGATIVE SARS-CoV-2 Antigen (Rapid) PRESUMPTIVE NEGATIVE NEGATIVE White Blood Count 7.3 4.8-10.8 K/uL Red Blood Count 4.51 4.50-6.20 MIL/uL Hemoglobin 14.6 14.0-18.0 g/dL Hematocrit 41.7 L 42-54 % Mean Corpuscular Volume 92.5 79-99 fL Mean Corpuscular Hemoglobin 32.4 27.0-33.0 pg Mean Corpuscular Hemoglobin Concent 35.0 32.0-36.0 g/dL Red Cell Distribution Width 12.4 11.0-15.5 % Platelet Count 183 130-400 K/uL Mean Platelet Volume 9.7 7.5-10.5 fL Immature Granulocyte % (Auto) 0.3 0-1 % Neutrophils (%) (Auto) 73.4 40.0-77.0 % Lymphocytes (%) (Auto) 15.0 L 21.0-51.0 % Monocytes (%) (Auto) 3.8 3.0-13.0 % Eosinophils (%) (Auto) 7.0 0.0-8.0 % Basophils (%) (Auto) 0.5 0.0-5.0 % Neutrophils # (Auto) 5.3 1.8-7.7 K/uL Lymphocytes # (Auto) 1.1 1.0-4.8 K/uL Monocytes # (Auto) 0.3 0.1-1.0 K/uL Eosinophils # (Auto) 0.51 0.00-0.70 K/uL Basophils # (Auto) 0.04 0.00-0.20 K/uL Absolute Immature Granulocyte (auto 0.02 0-1 K/uL Nucleated Red Blood Cells 0.0 0.0-0.19 % Prothrombin Time 14.1 H 9.6-11.6 SEC Prothromb Time International Ratio 1.33 H 0.85-1.15 Activated Partial Thromboplast Time 31.9 26.3-35.5 SEC Sodium Level 133 L 136-145 mmol/L Potassium Level 4.3 3.5-5.1 mmol/L Chloride Level 95 L 101-111 mmol/L Carbon Dioxide Level 29 21-32 mmol/L Blood Urea Nitrogen 12 7-18 mg/dL Creatinine 0.6 0.5-1.3 mg/dL Glomerular Filtration Rate Calc 95 >90 mL/min Random Glucose 128 H 70-105 mg/dL Lactic Acid Level 1.7 0.8-2.5 mmol/L Total Calcium 9.3 8.5-10.1 mg/dL Total Creatine Kinase 72 21-232 U/L Troponin I High Sensitivity 13 4-75 ng/L B-Type Natriuretic Peptide 114 H 0-100 pg/mL Procalcitonin < 0.05 L 0.05-0.5 ng/mL Current Medications Medications (Trade) Dose Ordered Sig/Luciana Route PRN Reason Start Time Stop Time Status Last Admin Dose Admin Albuterol (DUOneb) 1 udvial [id number] IH 04/07/24 14:00 05/07/24 13:59 UNV Azithromycin 250 ml @ 250 mls/hr Q24H STAT IVPB 04/07/24 12:13 04/07/24 13:12 Diazepam (VALium 5 MG/ML 2 ML SYG) 5 mg ONCE STAT IV 04/07/24 11:19 04/07/24 11:21 DC 04/07/24 11:40 5 MG Magnesium Sulfate 50 ml @ 0 mls/hr PROTOCOL PRN IV hypomagnesemia 04/07/24 13:00 05/07/24 12:59 UNV Methylprednisolone Sodium Succinate (Solu-medROL 125MG) 60 mg Q8H IVP 04/07/24 13:00 05/07/24 12:59 UNV Pantoprazole Sodium (PROTonix 40MG INJ) 40 mg DAILY IVP 04/07/24 13:00 05/07/24 12:59 UNV Potassium Chloride 100 ml @ 100 mls/hr AD PRN IV POTASSIUM PROTOCOL 04/07/24 13:00 05/07/24 12:59 UNV Potassium Chloride (K-Dur/Klor-Con 20meq) 20 meq AD PRN PO POTASSIUM PROTOCOL 04/07/24 13:00 05/07/24 12:59 UNV Potassium Chloride (KCl 10% Elixir 20meq/15ml) 20 meq AD PRN PO POTASSIUM PROTOCOL 04/07/24 13:00 05/07/24 12:59 UNV DIAGNOSTICS / RADIOLOGY: [ ] ASSESSMENT: Severe acute on chronic COPD exacerbation on BiPAP support Acute on chronic hypoxic respiratory failure needing BiPAP support Community acquired Pneumonia rule out History of hypotension History of hyperlipidemia History of atrial fibrillation on chronic anticoagulation History of PVD History of GERD PLAN: - be admitted to ICU -in reference to COPD exacerbation. Patient will be started on IV Solu-Medrol, DuoNebs q.4 hours. He will also be given IV Zosyn. We will deescalate antibiotics depending on cultures -obtain critical Care consultation -check TSH, CRP, procalcitonin, A1c -obtain home medications which will be reconciled once available -further orders per hospitalization course. Plan of care was discussed with patient at bedside Advanced Care Planning Which of the following were discussed: Hospice care: Yes __ No _x_ Therapeutic options: Yes __ No __ Advance directives: Yes __ No __ Other discussions: Pt is full code Discussed with who?: patient (Patient, family or surrogates) Voluntary nature of this service was explained to the patient? Yes _x_ No __ Amount of time spent: 25 minutes Total critical time spend > 35 minutes TANJA Ruiz MD, MD Apr 07, 2024 12:53
[2024-04-07] MEDS ORDERED: MAGNESIUM 2GM PREMIX 50ML 50 ML IV PRN (13:00)
[2024-04-07] MEDS ORDERED: PoTASSium chloRIDE 20MEQ/100ML 100 ML IV PRN (13:00)
[2024-04-07 13:25] LABS: THYROID STIMULATING HORMONE 4.62 uIU/mL (0.36-3.74)
[2024-04-07 13:30] LABS: HEMOGLOBIN A1C 5.3 % (4.0-6.0)
[2024-04-07] MEDS ORDERED: hydrALAZine 20MG/ML VIAL IV PRN (13:30)
[2024-04-07] MEDS: PANTOPrazole 40 MG/VIAL IVP SCH (13:43)
[2024-04-07] MEDS: Solu-medROL 125MG VIAL IVP SCH (13:45)
[2024-04-07] MEDS: IpraTROPium/alBUTERol SULFATE 3 ML SOLUTION IH SCH (14:00)
--- NOTE | 2024-04-07 14:00 | NUR ---
CALLED ROSA MARIA ANGELO TO BRING HOME MEDICATIONS WHEN SHE COMES TO VISIT HER . NO ANSWER AND LEFT A MESSAGE.
--- NOTE | 2024-04-07 14:03 | NUR ---
GLENN CRANE [facility] #[phone]
--- NOTE | 2024-04-07 14:46 | CONS ---
[facility] CONSULTATION NOTE Date Patient Seen: Apr 07, 2024 Time of Visit: 14:46 Supervising Physician: Nav Lam MD Reason for Consultation: COPD exacerbation Primary Care Physician: Jorge Bob MD Outpatient Specialists: Inpatient Consults: BIS, PROBLEM LIST: Acute on chronic hypoxemic respiratory failure, POA on BiPAP support now (home o2 3-4L) Suspected community-acquired pneumonia, POA Suspected acute CHF, POA Moderate COPD exacerbation, POA Hyperlipidemia Hyperglycemia History of Atrial fibrillation on chronic anticoagulation PVD GERD Former smoker of 96 pack-years HPI: This is an 84-year-old male with a past medical history of COPD, hypertension, hyperlipidemia, PVD, atrial fibrillation, and chronic respiratory failure on 4 L of oxygen at home who came in for increase shortness of breaths with yellow phlegm. Patient reports he has been having low appetite and nausea for about a week. He denies smoking now, but reports quitting approximately 35 years ago. He does report previous heavy smoking for 32 years more than three packs a day. On arrival to the emergency department O2 saturation was in the 80s. He was initially placed on non-rebreather mask at 100% FiO2 but persistently hypoxic and was changed to BiPAP at 100% FiO2 12/5 rr14. Patient was admitted to the ICU per catalyst team and we are consulted for COPD exacerbation. On assessment of patient he is awake alert and oriented x3 on BiPAP machine. He denies any fevers chills chest pain nausea vomiting or diarrhea. He does report shortness of breath per dL worsened over a week. With the increase phlegm production and cough. On assessment patient was hemodynamically stable with a blood pressure 141/76 afebrile with a temperature 97.9 heart rate of 100 respiratory rate of 22 O2 sat of 99% with FiO2 100% on BiPAP. WBCs were 7.3 H&H 14.6/41.7 with neutrophil count that is normal. Sodium 133 chloride 95 random glucose 128 mg/dL with a BNP of 114. COVID and influenza negative. INR 1.33. Initial ABG showed a pH of 7.46 pCO2 of 33 PO2 of 47.6 bicarb 23.1 with a ABG O2 saturation of 86.4. PAST MEDICAL HX: COPD History of PVD Atrial fibrillation PAST SURGICAL HX: Cholecystectomy Pack-year smoker quit more than 30 years ago Daily wine drinker Denies drug use SOCIAL HISTORY: No tobacco, ETOH, or illicit drug use Coded Allergies: No Known Allergies (Verified Allergy, Unknown, 08/03/17) REVIEW OF SYSTEMS: Const: [No fever, fatigue, or weight changes] Eyes:[ no recent vision problems] ENT: [No congestion, ear pain, or sore throat] C/V: [no chest pain, palpitations or edema] Resp: [Yes for cough, congestion, wheezing and shortness of breath. Yes for phlegm. GI: [No abdominal pain, nausea, vomiting, constipation, or diarrhea] : [No incontinence of or dyuria] M/S: [No joint or pain swelling] Skin: [No rash] Neuro: [no headache, focal numbness, or weakness, dizziness or seizures] Psych: [no depression or anxiety] Heme: [no abnormal bruising or bleeding] Lymph: [no swollen glands] PHYSICAL EXAM: GENERAL: alert, weak, awake oriented x 3 HEENT: EOMI, Sclera non icteric, moist mucosa NECK: Supple, no JVD, trachea midline LUNGS: Wheezes sounds bilaterally. No wheezes HEART: Regular rate and rhythm. Normal S1 and S2, without murmurs ABD: Abdomen soft, nontender. Bowel sounds present EXT: No clubbing cyanosis or edema NEURO: Alert and oriented to person, follows commands Vital Signs (last 8hr) Date Time Temp Pulse Resp B/P (MAP) Pulse Ox O2 Delivery O2 Flow Rate FiO2 04/07/24 13:07 94 22 160/83 99 Bi-PAP+ 100 04/07/24 12:16 100 20 141/76 92 Bi-PAP+ 100 04/07/24 11:40 100 26 04/07/24 11:32 87 22 100 04/07/24 11:10 97.9 81 26 165/87 82 Nasal Cannula* 6 44 04/07/24 10:57 97.9 106 22 188/95 83 Room Air LABS: Hematology Labs: Test 04/07/24 11:08 Range/Units White Blood Count 7.3 4.8-10.8 K/uL Red Blood Count 4.51 4.50-6.20 MIL/uL Hemoglobin 14.6 14.0-18.0 g/dL Hematocrit 41.7 L 42-54 % Mean Corpuscular Volume 92.5 79-99 fL Mean Corpuscular Hemoglobin 32.4 27.0-33.0 pg Mean Corpuscular Hemoglobin Concent 35.0 32.0-36.0 g/dL Red Cell Distribution Width 12.4 11.0-15.5 % Platelet Count 183 130-400 K/uL Mean Platelet Volume 9.7 7.5-10.5 fL Immature Granulocyte % (Auto) 0.3 0-1 % Neutrophils (%) (Auto) 73.4 40.0-77.0 % Lymphocytes (%) (Auto) 15.0 L 21.0-51.0 % Monocytes (%) (Auto) 3.8 3.0-13.0 % Eosinophils (%) (Auto) 7.0 0.0-8.0 % Basophils (%) (Auto) 0.5 0.0-5.0 % Neutrophils # (Auto) 5.3 1.8-7.7 K/uL Lymphocytes # (Auto) 1.1 1.0-4.8 K/uL Monocytes # (Auto) 0.3 0.1-1.0 K/uL Eosinophils # (Auto) 0.51 0.00-0.70 K/uL Basophils # (Auto) 0.04 0.00-0.20 K/uL Absolute Immature Granulocyte (auto 0.02 0-1 K/uL Nucleated Red Blood Cells 0.0 0.0-0.19 % Chemistry Labs: Test 04/07/24 11:18 04/07/24 11:08 Range/Units Hemoglobin A1c 5.3 4.0-6.0 % Estimated Average Glucose (eAG) 105 70-126 mg/dL C-Reactive Protein, Quantitative 2.70 0.5-3.0 mg/L Thyroid Stimulating Hormone (TSH) 4.62 #H 0.36-3.74 uIU/mL Sodium Level 133 L 136-145 mmol/L Potassium Level 4.3 3.5-5.1 mmol/L Chloride Level 95 L 101-111 mmol/L Carbon Dioxide Level 29 21-32 mmol/L Blood Urea Nitrogen 12 7-18 mg/dL Creatinine 0.6 0.5-1.3 mg/dL Glomerular Filtration Rate Calc 95 >90 mL/min Random Glucose 128 H 70-105 mg/dL Lactic Acid Level 1.7 0.8-2.5 mmol/L Total Calcium 9.3 8.5-10.1 mg/dL Total Creatine Kinase 72 21-232 U/L Troponin I High Sensitivity 13 4-75 ng/L B-Type Natriuretic Peptide 114 H 0-100 pg/mL Procalcitonin < 0.05 L 0.05-0.5 ng/mL Coagulation Labs: Test 04/07/24 11:08 Range/Units Prothrombin Time 14.1 H 9.6-11.6 SEC Prothromb Time International Ratio 1.33 H 0.85-1.15 Activated Partial Thromboplast Time 31.9 26.3-35.5 SEC DIAGNOSTICS / RADIOLOGY RESULTS: Signed PATIENT: LEO ANGELO MR#: [id number] : 1940 SEX: M AGE: 84 LOCATION: [facility] ORDER 1101 STATUS: REG REPORT#: [id number] SERVICE 1059 REASON: SOB ORDERING PHYSICIAN: GIDEON SPARKS MD PROCEDURE: CXR1VW - CHEST 1VW CHEST 1VW HISTORY: Shortness of breath COMPARISON: 08/04/2023 FINDINGS: A frontal projection of the chest was obtained. Mild bilateral pulmonary infiltrates are seen may be related to mild pulmonary vascular congestion with possible superimposed pneumonitis. The heart is borderline enlarged. Degenerative changes are seen. Aortic calcifications are seen. IMPRESSION: 1. Mild bilateral pulmonary infiltrates are seen may be related to mild pulmonary vascular congestion with possible superimposed pneumonitis. DICTATED BY: NETO LAGUNA MD DATE: 04/07/24 1159 ELECTRONICALLY SIGNED BY: NETO LAGUNA MD DATE: 04/07/24 1202 PLAN Continue Solu-Medrol 40 mg q.6 hours IV push and wean as tolerated Start Lasix 20 mg IV push q.12 hours Covered empirically for community-acquired pneumonia with Zosyn and doxycycline. Given exposure of smoking for many years, patient has a developed COPD with exacerbation. Patient to follow up as outpatient at pulmonary clinic in two weeks for PFTs, we will continue with nebulizer treatments with atrovent, Pulmicort, steroids. Singulair 10 mg daily Follow respiratory cultures Maintain O2 sats above 88% Gi PPX with protonix due to steroids Influenza a and B negative, COVID-19 negative, Chest x-ray in the morning, wean off O2 as tolerated. NEURO: Minimize central acting medications as possible. Fall Precautions. Well lighted room through the day and minimize interruptions through the night to prevent acute delirium. PULMONARY: Supplemental 02 as needed Titrate Fio2 to keep Spo2 > or = 88% DuoNebs and CPT as needed IS hourly while awake for pulmonary hygiene Out of bed to chair as tolerated VAP Bundle Vent/BIPAP Settings: BiPAP at 100% FiO2 10/5 rr18, wean O2 to maintain O2 sat above 88%. CARDIOVASCULAR: Follow hemodynamics. Titrate vasopressor to keep MAP >65 or systolic blood pressure >95mmHg Drips: None LINES: piv GI & NUTRITION: Continue nutritional support Aspirations precautions Prokinetic agents and laxatives as needed KIDNEYS & ELECTROLYTES: Strict monitoring of intake and output Daily weights Avoid nephrotoxic agents Monitor electrolytes and replace as needed Goal urine output of 30mL/hr or 0.5mL/kg/hr Urine output: [ ] Fluid Balance: [ ] ENDOCRINE: Maintain blood glucose between 100-180 at all times. Insulin sliding scale for blood glucose management INFECTIOUS DISEASE: Trend temperature. Russ-culture if febrile. Micro: [ ] Blood cultures Urine culture Respiratory culture Antibiotics: [ ] Zosyn Azithromycin HEMATOLOGY & COAGULATION: Monitor H&H. Keep Hgb > 7 Transfuse 1 unit of PRBC for Hgb < 7 Transfuse 1 pack of platelets of platelets < 20, 000 Watch for any signs and symptoms of bleeding SKIN: Pressure ulcer prevention per facility protocol Rehab: PT/OT Prophylaxis: GI: Protonix DVT: Patient on chronic anticoagulation with Xarelto Code Status: Full Resuscitation Disposition: ICU Other: Total patient care time exceeds 35 minutes excluding all procedures. Case was discussed and seen with my supervising physician. The above plan was formulated and agreed upon. ROEL FERRERA [facility] Apr 07, 2024 14:46
[2024-04-07] MEDS ORDERED: 0.9%NACL 50ML IV SCH (15:00)
[2024-04-07] MEDS: SODIUM CHLORIDE 3% FOR INHALATION 4 ML/AMP VIAL.NEB IH ONE ×2 (15:47→18:46)
[2024-04-07] MEDS: ZOSYN 3.375GM +NS 50ML IVPB SCH (15:55)
[2024-04-07] MEDS: dilTIAZem 60MG TAB PO SCH (15:57)
--- NOTE | 2024-04-07 19:02 | EKG ---
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
[2024-04-07] MEDS: RIVAROXABAN 2.5 MG TABLET PO SCH (20:55)
[2024-04-07] MEDS: Solu-medROL 40MG VIAL IVP SCH (21:30)
[2024-04-07] MEDS: monteLUKAST sodIUM 10 MG TAB PO SCH (22:37)
[2024-04-07] MEDS: DOXYCYCLINE 100MG+NS 250ML 250 ML IV SCH (22:38)
[2024-04-07] MEDS: furoSEMIDE 20MG VIAL IV SCH (22:38)
[2024-04-07] MEDS: IpraTROPium 0.5 MG/2.5 ML INH IH SCH (23:36)
[2024-04-08] VITALS (80 sets, daily range): BP systolic 120–170; BP diastolic 59–108; PULSE 68–116; RESP 13–52; TEMP 97.4–98; O2SAT 89–93
[2024-04-08 01:07] LABS: APPEARANCE,URINE CLEAR (CLEAR); BILIRUBIN,URINE NEGATIVE (NEGATIVE); COLOR,URINE LIGHT-YELLOW (YELLOW); GLUCOSE, URINE (UA) NEGATIVE (NEGATIVE); KETONES,URINE 5 mg/dL (NEGATIVE); LEUKOCYTE ESTERASE ,URINE NEGATIVE Leu/uL (NEGATIVE); NITRATE,URINE NEGATIVE (NEGATIVE); OCCULT BLOOD,URINE NEGATIVE (NEGATIVE); PROTEIN,URINE NEGATIVE (NEGATIVE); UROBILINOGEN,URINE 0.2 mg/dL (0.2-1.0)
[2024-04-08 01:08] LABS: ADD UA MICROSCOPIC NO
[2024-04-08 04:28] LABS: ABG BASE EXCESS 2.9 mmol/L (-2.0-3.0); ABG HCO3 26.4 mmol/L (21.0-28.0); ABG OXYGEN SATURATION 89.2 % (94.0-98.0); ABG PCO2 37 mmHg (35-48); ABG PH 7.469 (7.350-7.450); PO2, ARTERIAL BG 52.3 mmHg (83.0-108.0); VENT MODE, BG 5LNC (ROOM AIR)
[2024-04-08 04:37] LABS: HEMATOCRIT 39.9 % (42-54); IMMATURE GRANULOCYTE ABSOLUTE 0.03 K/uL (0-1); LYMPHOCYTES # (AUTO) 0.6 K/uL (1.0-4.8); LYMPHOCYTES % (AUTO) 13.3 % (21.0-51.0); MEAN CORPUSCULAR HEMOGLOBIN 32.4 pg (27.0-33.0); MEAN CORPUSCULAR HGB CONC 34.1 g/dL (32.0-36.0); MONOCYTES # (AUTO) 0.1 K/uL (0.1-1.0); MONOCYTES % (AUTO) 3.2 % (3.0-13.0); NEUTROPHILS # (AUTO) 3.6 K/uL (1.8-7.7); NEUTROPHILS % (AUTO) 82.8 % (40.0-77.0); PLATELET COUNT (AUTO) 144 K/uL (130-400); WHITE BLOOD COUNT (AUTO) 4.4 K/uL (4.8-10.8)
[2024-04-08 04:44] LABS: CREATININE 0.8 mg/dL (0.5-1.3); POTASSIUM 3.7 mmol/L (3.5-5.1)
[2024-04-08] MEDS: BUDESONIDE 0.5 MG/2 ML INH IH SCH (06:37)
[2024-04-08] MEDS: cloPIDOgrel 75MG TAB PO SCH (08:18)
[2024-04-08] MEDS: ASPIRIN 81MG CHEW TAB PO SCH (08:19)
[2024-04-08] MEDS ORDERED: RIVA2.5T PO (09:19)
[2024-04-08] MEDS ORDERED: DILT30 PO (09:19)
[2024-04-08] MEDS ORDERED: OXYB5SYR6 PO (09:19)
[2024-04-08] MEDS ORDERED: VIT1CAPS47 PO (09:19)
[2024-04-08] MEDS ORDERED: CLOP75TA32 PO (09:19)
[2024-04-08] MEDS ORDERED: CHOL500050 PO (09:19)
--- NOTE | 2024-04-08 09:35 | HMCIMG ---
CHEST 1VW HISTORY: Respiratory failure COMPARISON: 04/07/2024 FINDINGS: A frontal projection of the chest was obtained. There are bilateral pulmonary infiltrates suggestive of pulmonary vascular congestion with possible superimposed pneumonitis. The heart is borderline enlarged. Degenerative changes are seen. Aortic calcifications are seen. IMPRESSION: 1. Bilateral pulmonary infiltrates are seen suggestive of pulmonary vascular congestion with possible superimposed pneumonitis.
--- NOTE | 2024-04-08 10:00 | NUR ---
PT REFUSED TO CONTINUE TO USE BIPAP. BIPAP SWITCHED TO VENTI MASK FOR PT'S COMFORT. ROEL FERRARI NOTIFIED.
--- NOTE | 2024-04-08 12:12 | PN ---
[facility] PROGRESS NOTE Date Patient Seen: Apr 08, 2024 Time of Visit: 12:12 Supervising Physician:Serge Ellis MD Primary Care Physician: Jorge Bob MD Outpatient Specialists: Inpatient Consults: BIS, PROBLEM LIST: Acute on chronic hypoxemic respiratory failure, POA on BiPAP support now (home o2 3-4L) Suspected community-acquired pneumonia, POA Suspected acute CHF, POA COPD exacerbation, POA Hyperlipidemia Hyperglycemia History of Atrial fibrillation on chronic anticoagulation PVD GERD Former smoker of 96 pack-years INTERVAL HISTORY: Patient is awake alert and oriented x3. He has been keeping the BiPAP on due to he states "I&O like it". Patient is on Venturi mask with a FiO2 of 50% saturating 90%. Hemodynamically stable respiratory rate of 18 unlabored pulse of 80 afebrile. On ABG patient's pH 7.46 pCO2 of 37, PO2 of 52.3 bicarb 26.4 on FiO2 40%. WBCs 4.4 H&H 13.6/39.9 neutrophils 82.8. Sodium 135/97 creatinine 0.8 with GFR of 87 154 mg/dL. Offered Precedex drip for anxiety in order to leave BiPAP on. Patient verbalized agreement. Tolerated this afternoon BiPAP with Precedex. On microbiology blood cultures with no growth. REVIEW OF SYSTEMS: Const: [No fever, fatigue, or weight changes] Eyes:[ no recent vision problems] ENT: [No congestion, ear pain, or sore throat] C/V: [no chest pain, palpitations or edema] Resp: [Yes for cough, congestion, wheezing and shortness of breath. Yes for phlegm. GI: [No abdominal pain, nausea, vomiting, constipation, or diarrhea] : [No incontinence of or dyuria] M/S: [No joint or pain swelling] Skin: [No rash] Neuro: [no headache, focal numbness, or weakness, dizziness or seizures] Psych: [no depression or anxiety] Heme: [no abnormal bruising or bleeding] Lymph: [no swollen glands] PHYSICAL EXAM: GENERAL: alert, weak, awake oriented x 3 HEENT: EOMI, Sclera non icteric, moist mucosa NECK: Supple, no JVD, trachea midline LUNGS: Wheezes sounds bilaterally. No wheezes HEART: Regular rate and rhythm. Normal S1 and S2, without murmurs ABD: Abdomen soft, nontender. Bowel sounds present EXT: No clubbing cyanosis or edema NEURO: Alert and oriented to person, follows commands Vital Signs (last 8hr) Date Time Temp Pulse Resp B/P (MAP) Pulse Ox O2 Delivery O2 Flow Rate FiO2 04/08/24 11:27 91 22 04/08/24 11:15 93 21 134/66 88 Venti Mask 04/08/24 10:45 91 23 150/68 86 Venti Mask 04/08/24 10:15 97 16 154/68 91 N/C High Flow System 5.0 04/08/24 10:03 94 27 45 04/08/24 09:45 100 24 140/60 89 BIPAP 45 04/08/24 09:15 105 25 162/75 91 BIPAP 45 04/08/24 08:45 101 33 141/84 89 N/C High Flow System 5.0 04/08/24 08:15 103 18 155/89 89 N/C High Flow System 5.0 04/08/24 08:00 90 N/C Oxymizer Hi LPM* 6 44 04/08/24 07:45 97.9 93 15 160/75 91 N/C High Flow System 5.0 04/08/24 07:15 100 52 157/78 90 N/C High Flow System 5.0 04/08/24 07:00 92 17 89 N/C High Flow System 04/08/24 06:48 97 15 170/93 91 N/C High Flow System 04/08/24 06:41 91 20 N/Cannula Oximizer Hi LPM 5.0 40 04/08/24 06:37 91 22 04/08/24 06:30 89 20 91 N/C High Flow System 04/08/24 06:18 91 22 138/75 91 N/C High Flow System 04/08/24 06:00 88 20 90 N/C High Flow System 04/08/24 05:48 91 23 147/65 89 N/C High Flow System 04/08/24 05:30 92 16 89 N/C High Flow System 04/08/24 05:18 94 16 159/81 90 N/C High Flow System 04/08/24 05:00 92 19 89 N/C High Flow System 04/08/24 04:48 88 14 141/87 90 N/C High Flow System 04/08/24 04:40 109 19 40 04/08/24 04:30 94 36 88 N/C High Flow System LABS: Hematology Labs: Test 04/08/24 04:26 Range/Units White Blood Count 4.4 #L 4.8-10.8 K/uL Red Blood Count 4.20 L 4.50-6.20 MIL/uL Hemoglobin 13.6 L 14.0-18.0 g/dL Hematocrit 39.9 L 42-54 % Mean Corpuscular Volume 95.0 79-99 fL Mean Corpuscular Hemoglobin 32.4 27.0-33.0 pg Mean Corpuscular Hemoglobin Concent 34.1 32.0-36.0 g/dL Red Cell Distribution Width 12.0 11.0-15.5 % Platelet Count 144 130-400 K/uL Mean Platelet Volume 9.9 7.5-10.5 fL Immature Granulocyte % (Auto) 0.7 0-1 % Neutrophils (%) (Auto) 82.8 H 40.0-77.0 % Lymphocytes (%) (Auto) 13.3 L 21.0-51.0 % Monocytes (%) (Auto) 3.2 3.0-13.0 % Eosinophils (%) (Auto) 0.0 0.0-8.0 % Basophils (%) (Auto) 0.0 0.0-5.0 % Neutrophils # (Auto) 3.6 1.8-7.7 K/uL Lymphocytes # (Auto) 0.6 L 1.0-4.8 K/uL Monocytes # (Auto) 0.1 0.1-1.0 K/uL Eosinophils # (Auto) 0.00 0.00-0.70 K/uL Basophils # (Auto) 0.00 0.00-0.20 K/uL Absolute Immature Granulocyte (auto 0.03 0-1 K/uL Nucleated Red Blood Cells 0.0 0.0-0.19 % Chemistry Labs: Test 04/08/24 04:26 04/07/24 11:18 04/07/24 11:08 Range/Units Sodium Level 135 L 136-145 mmol/L Potassium Level 3.7 3.5-5.1 mmol/L Chloride Level 97 L 101-111 mmol/L Carbon Dioxide Level 29 21-32 mmol/L Blood Urea Nitrogen 15 7-18 mg/dL Creatinine 0.8 0.5-1.3 mg/dL Glomerular Filtration Rate Calc 87 >90 mL/min Random Glucose 154 H 70-105 mg/dL Total Calcium 8.8 8.5-10.1 mg/dL Hemoglobin A1c 5.3 4.0-6.0 % Estimated Average Glucose (eAG) 105 70-126 mg/dL C-Reactive Protein, Quantitative 2.70 0.5-3.0 mg/L Thyroid Stimulating Hormone (TSH) 4.62 #H 0.36-3.74 uIU/mL Lactic Acid Level 1.7 0.8-2.5 mmol/L Total Creatine Kinase 72 21-232 U/L Troponin I High Sensitivity 13 4-75 ng/L B-Type Natriuretic Peptide 114 H 0-100 pg/mL Procalcitonin < 0.05 L 0.05-0.5 ng/mL Coagulation Labs: Test 04/07/24 11:08 Range/Units Prothrombin Time 14.1 H 9.6-11.6 SEC Prothromb Time International Ratio 1.33 H 0.85-1.15 Activated Partial Thromboplast Time 31.9 26.3-35.5 SEC DIAGNOSTICS / RADIOLOGY RESULTS: Signed PATIENT: LEO ANGELO MR#: [id number] : 1940 SEX: M AGE: 84 LOCATION: [facility] ORDER 28 STATUS: ADM IN REPORT#: [id number] SERVICE 27 REASON: suspect acute chf ORDERING PHYSICIAN: ROEL FERRERA PROCEDURE: ECHO CMP - ECHO 2-D COMPLETE APPROVED REPORT EXAM: Two-dimensional and M-mode echocardiogram with Doppler and color Doppler. Study Details: TDS INDICATION ICD: Suspect congestive heart failure 2D Dimensions LVOT diam 2.4 (1.8-2.4cm) M-Mode Dimensions LA (MM) 4.6 (1.6-4.0cm) Ao Root(MM) 4.3 (2.0-3.7cm) Left Ventricle Left ventricular cavity appears small. There is normal left ventricular wall thickness. Unable to assess EF due to technically challenging study. Right Ventricle The right ventricle dilated. The right ventricular systolic function is normal. Atria Left atrium is not well visualized. Right atrium is not well visualized. Aortic Valve The aortic valve is not well visualized. Tricuspid Valve Tricuspid valve is not well visualized. Pulmonic Valve Pulmonic valve is not visualized. Great Vessels The aortic root is normal in size. Pericardium No pericardial effusion. Other Information Quality : Technically difficult study due to body habitus Conclusion Unable to assess EF due to technically challenging study. DICTATED BY: CANDELARIA DAO MD DATE: 04/08/24 1046 ELECTRONICALLY SIGNED BY: CANDELARIA DAO MD DATE: 04/08/24 1421 PLAN Continue Solu-Medrol 40 mg q.6 hours IV push and wean as tolerated Start Lasix 20 mg IV push q.12 hours Covered empirically for community-acquired pneumonia with Zosyn and doxycycline. Given exposure of smoking for many years, patient has a developed COPD with exacerbation. Singulair 10 mg daily Follow respiratory cultures Maintain O2 sats above 88% Gi PPX with protonix due to steroids Influenza a and B negative, COVID-19 negative, Chest x-ray in the morning, wean off O2 as tolerated. we will continue with nebulizer treatments with atrovent, Pulmicort, steroids. Patient to follow up as outpatient at pulmonary clinic in two weeks for PFTs after discharge, NEURO: Minimize central acting medications as possible. Fall Precautions. Well lighted room through the day and minimize interruptions through the night to prevent acute delirium. PULMONARY: Supplemental 02 as needed Titrate Fio2 to keep Spo2 > or = 88% DuoNebs and CPT as needed IS hourly while awake for pulmonary hygiene Out of bed to chair as tolerated VAP Bundle Vent/BIPAP Settings: BiPAP at 100% FiO2 10/5 rr18, wean O2 to maintain O2 sat above 88%. CARDIOVASCULAR: Follow hemodynamics. Titrate vasopressor to keep MAP >65 or systolic blood pressure >95mmHg Drips: Precedex drip LINES: piv GI & NUTRITION: Continue nutritional support Aspirations precautions Prokinetic agents and laxatives as needed KIDNEYS & ELECTROLYTES: Strict monitoring of intake and output Daily weights Avoid nephrotoxic agents Monitor electrolytes and replace as needed Goal urine output of 30mL/hr or 0.5mL/kg/hr Urine output: 1.2 L Fluid Balance: -410 mL ENDOCRINE: Maintain blood glucose between 100-180 at all times. Insulin sliding scale for blood glucose management INFECTIOUS DISEASE: Trend temperature. Russ-culture if febrile. Micro: [ ] Blood cultures Urine culture Respiratory culture Antibiotics: [ ] Zosyn Azithromycin HEMATOLOGY & COAGULATION: Monitor H&H. Keep Hgb > 7 Transfuse 1 unit of PRBC for Hgb < 7 Transfuse 1 pack of platelets of platelets < 20, 000 Watch for any signs and symptoms of bleeding SKIN: Pressure ulcer prevention per facility protocol Rehab: PT/OT Prophylaxis: GI: Protonix DVT: Patient on chronic anticoagulation with Xarelto Code Status: Full Resuscitation Disposition: ICU Other: Total patient care time exceeds 35 minutes excluding all procedures. Case was discussed and seen with my supervising physician. The above plan was formulated and agreed upon. ROEL FERRERA [facility] Apr 08, 2024 12:12
--- NOTE | 2024-04-08 13:25 | PN ---
[facility] PROGRESS NOTE Date of Service: Apr 08, 2024 Time of Service: 13:23 Patient was seen and examined. Still coughing and short of breath. He is using supplemental oxygen. Continue nebulized bronchodilators, IV steroids SUBJECTIVE: [ ] REVIEW OF SYSTEMS CONSTITUTIONAL: Denies fevers, chills, or night sweats. No unintentional weight loss reported. NEUROLOGICAL: Denies headache, amaurosis fugax, motor weakness, sensory deficit, vertigo/spinning sensation, gait abnormalities, or tremors. ENT: No hearing loss, otalgia, otorrhea, rhinitis, rhinorrhea, hoarseness, or sore throat. CARDIOVASCULAR: Denies any exertional angina, dyspnea on exertion, orthopnea, paroxysmal nocturnal dyspnea, palpitations, life-threatening arrhythmias, claudication. PULMONARY: , sputum production, shortness of breath, denied any hemoptysis GASTROINTESTINAL: Denies any type of dysphagia to either liquids or solids. Denies nausea, vomiting, pyrosis, early satiety, abdominal pain, diarrhea, constipation, or changes in stool consistency or caliber. Denies coffee-ground emesis, hematemesis, hematochezia, or melanotic stools. GENITOURINARY: Denies frequency, urgency, nocturia, hematuria or incontinence (Storage/Irritative symptoms.) Low urinary stream, straining to void, urinary intermittency or hesitancy, splitting of the voiding stream, terminal dribbling. ENDOCRINOLOGIC: Denies polyuria, polydipsia, polyphagia or heat/cold intolerances. HEMATOLOGIC: Denies thrombophilia/previous clots, or coagulopathy/bleeding disorders. ONCOLOGIC: Denies personal history of malignancy. DERMATOLOGIC: Denies rashes or pruritus. PSYCHIATRIC: Denies any suicidal or homicidal ideation. Denies hallucinations. PHYSICAL EXAM GENERAL APPEARANCE: The patient is awake, alert, and oriented, in no acute cardiopulmonary distress. NEUROLOGICAL: Cranial nerves II-XII grossly intact. Motor is 5/5 in bilateral upper and lower extremities proximal to distal. No sensory deficits. HEENT: Face is symmetric. Pupils are equal and reactive. Extraocular movements are intact. NECK: Supple. No JVD. No thyromegaly. No submental, submandibular, pre- /postauricular, occipital or supraclavicular lymphadenopathy. CHEST: Normal chest expansion. No Telemetry. LUNGS: Patient has wheezing present bilaterally. CARDIOVASCULAR: Regular. S1 and S2 normal. No appreciable rubs, murmurs or gallops. ABDOMEN: Soft, nontender, and nondistended. There is no rebound, voluntary guarding, or rigidity. : Deferred. No Booker. EXTREMITIES: Non-edematous and not cyanotic. No clubbing. Good capillary refill. SKIN: No skin breakdown. Vital Signs (last 8hr) Date Time Temp Pulse Resp B/P (MAP) Pulse Ox O2 Delivery O2 Flow Rate FiO2 04/08/24 12:00 90 Venti Mask+ 10 50 04/08/24 11:27 91 22 04/08/24 11:15 93 21 134/66 88 Venti Mask 04/08/24 10:45 91 23 150/68 86 Venti Mask 04/08/24 10:15 97 16 154/68 91 N/C High Flow System 5.0 04/08/24 10:03 94 27 45 04/08/24 09:45 100 24 140/60 89 BIPAP 45 04/08/24 09:15 105 25 162/75 91 BIPAP 45 04/08/24 08:45 101 33 141/84 89 N/C High Flow System 5.0 04/08/24 08:15 103 18 155/89 89 N/C High Flow System 5.0 04/08/24 08:00 90 N/C Oxymizer Hi LPM* 6 44 04/08/24 07:45 97.9 93 15 160/75 91 N/C High Flow System 5.0 04/08/24 07:15 100 52 157/78 90 N/C High Flow System 5.0 04/08/24 07:00 92 17 89 N/C High Flow System 04/08/24 06:48 97 15 170/93 91 N/C High Flow System 04/08/24 06:41 91 20 N/Cannula Oximizer Hi LPM 5.0 40 04/08/24 06:37 91 22 04/08/24 06:30 89 20 91 N/C High Flow System 04/08/24 06:18 91 22 138/75 91 N/C High Flow System 04/08/24 06:00 88 20 90 N/C High Flow System 04/08/24 05:48 91 23 147/65 89 N/C High Flow System 04/08/24 05:30 92 16 89 N/C High Flow System LABS: Laboratory: Test 04/08/24 12:45 04/08/24 04:27 04/08/24 04:26 04/08/24 00:14 Range/Units D-Dimer Quantitative (PE/DVT) 454 0-500 ng/mL Blood Gas Specimen Type Arterial Arterial Blood pH 7.469 H 7.350-7.450 Arterial Blood Partial Pressure CO2 37 35-48 mmHg Arterial Blood Partial Pressure O2 52.3 *L 83.0-108.0 mmHg Arterial Blood HCO3 26.4 21.0-28.0 mmol/L Arterial Blood Oxygen Saturation 89.2 L 94.0-98.0 % Arterial Blood Base Excess 2.9 -2.0-3.0 mmol/L Blood Gas Temperature 37.0 35.5-37.0 CELSIUS Blood Gas Flow-by 5.00 0.00-15.00 L/min Blood Gas Vent Mode 5LNC ROOM AIR FiO2 40.0 % Blood Gas Specimen Comment RR, RN White Blood Count 4.4 #L 4.8-10.8 K/uL Red Blood Count 4.20 L 4.50-6.20 MIL/uL Hemoglobin 13.6 L 14.0-18.0 g/dL Hematocrit 39.9 L 42-54 % Mean Corpuscular Volume 95.0 79-99 fL Mean Corpuscular Hemoglobin 32.4 27.0-33.0 pg Mean Corpuscular Hemoglobin Concent 34.1 32.0-36.0 g/dL Red Cell Distribution Width 12.0 11.0-15.5 % Platelet Count 144 130-400 K/uL Mean Platelet Volume 9.9 7.5-10.5 fL Immature Granulocyte % (Auto) 0.7 0-1 % Neutrophils (%) (Auto) 82.8 H 40.0-77.0 % Lymphocytes (%) (Auto) 13.3 L 21.0-51.0 % Monocytes (%) (Auto) 3.2 3.0-13.0 % Eosinophils (%) (Auto) 0.0 0.0-8.0 % Basophils (%) (Auto) 0.0 0.0-5.0 % Neutrophils # (Auto) 3.6 1.8-7.7 K/uL Lymphocytes # (Auto) 0.6 L 1.0-4.8 K/uL Monocytes # (Auto) 0.1 0.1-1.0 K/uL Eosinophils # (Auto) 0.00 0.00-0.70 K/uL Basophils # (Auto) 0.00 0.00-0.20 K/uL Absolute Immature Granulocyte (auto 0.03 0-1 K/uL Nucleated Red Blood Cells 0.0 0.0-0.19 % Sodium Level 135 L 136-145 mmol/L Potassium Level 3.7 3.5-5.1 mmol/L Chloride Level 97 L 101-111 mmol/L Carbon Dioxide Level 29 21-32 mmol/L Blood Urea Nitrogen 15 7-18 mg/dL Creatinine 0.8 0.5-1.3 mg/dL Glomerular Filtration Rate Calc 87 >90 mL/min Random Glucose 154 H 70-105 mg/dL Total Calcium 8.8 8.5-10.1 mg/dL Urine Color LIGHT-YELLOW YELLOW Urine Appearance CLEAR CLEAR Urine pH 6.0 5.0-8.0 Urine Specific [place] 1.008 1.001-1.031 Urine Protein NEGATIVE NEGATIVE mg/dL Urine Glucose (UA) NEGATIVE NEGATIVE mg/dL Urine Ketones 5 H NEGATIVE mg/dL Urine Occult Blood NEGATIVE NEGATIVE Urine Nitrate NEGATIVE NEGATIVE Urine Bilirubin NEGATIVE NEGATIVE mg/dL Urine Urobilinogen 0.2 0.2-1.0 mg/dL Urine Leukocyte Esterase NEGATIVE NEGATIVE Gregg/uL Test 04/07/24 11:18 04/07/24 11:10 04/07/24 11:08 Range/Units Hemoglobin A1c 5.3 4.0-6.0 % Estimated Average Glucose (eAG) 105 70-126 mg/dL C-Reactive Protein, Quantitative 2.70 0.5-3.0 mg/L Thyroid Stimulating Hormone (TSH) 4.62 #H 0.36-3.74 uIU/mL Influenza Type A Antigen Negative For Type A NEGATIVE Influenza Type B Antigen Negative For Type B NEGATIVE SARS-CoV-2 Antigen (Rapid) PRESUMPTIVE NEGATIVE NEGATIVE Prothrombin Time 14.1 H 9.6-11.6 SEC Prothromb Time International Ratio 1.33 H 0.85-1.15 Activated Partial Thromboplast Time 31.9 26.3-35.5 SEC Lactic Acid Level 1.7 0.8-2.5 mmol/L Total Creatine Kinase 72 21-232 U/L Troponin I High Sensitivity 13 4-75 ng/L B-Type Natriuretic Peptide 114 H 0-100 pg/mL Procalcitonin < 0.05 L 0.05-0.5 ng/mL Current Medications Medications (Trade) Dose Ordered Sig/Luciana Route PRN Reason Start Time Stop Time Status Last Admin Dose Admin Albuterol (DUOneb) 1 udvial [id number] 04/07/24 14:00 04/07/24 21:21 DC 04/07/24 18:45 1 UDVIAL Aspirin (Aspirin 81mg Chew Tab) 81 mg DAILY PO 04/08/24 09:00 05/08/24 08:59 04/08/24 08:19 81 MG Azithromycin 250 ml @ 250 mls/hr Q24H IVPB 04/08/24 13:30 04/07/24 21:20 DC Azithromycin 250 ml @ 250 mls/hr Q24H STAT IVPB 04/07/24 12:13 04/07/24 13:12 DC 04/07/24 12:51 250 MLS/HR Budesonide (Pulmicort 0.5 Mg/2ml) 0.5 mg BIDRESP 04/08/24 06:00 05/08/24 05:59 04/08/24 06:37 0.5 MG Clopidogrel Bisulfate (plaVIX 75MG) 75 mg DAILY PO 04/08/24 09:00 05/08/24 08:59 04/08/24 08:18 75 MG Diazepam (VALium 5 MG/ML 2 ML SYG) 5 mg ONCE STAT IV 04/07/24 11:19 04/07/24 11:21 NM 04/07/24 11:40 5 MG Diltiazem HCl (CARDIzem 60MG TAB) 30 mg TID PO 04/07/24 16:00 05/07/24 15:59 04/08/24 08:18 30 MG Doxycycline Hyclate 250 ml @ 125 mls/hr Q12H IV 04/07/24 21:30 04/17/24 21:29 04/08/24 08:19 125 MLS/HR Furosemide (LASix 20MG VIAL) 20 mg Q12H IV 04/07/24 21:30 05/07/24 21:29 04/08/24 08:17 20 MG Home Med (Home Medication) Vit C/E/Zn/ Coppr/Lutein/ Makenzie... BID PO 04/08/24 21:00 05/08/24 20:59 Hydralazine HCl (APRESOLine 20MG INJ) 10 mg Q6H PRN IV ADMINISTER FOR SBP > 180 04/07/24 13:30 05/07/24 13:29 Ipratropium [place] (AtrovENT UD) 0.5 MG [id number] IH 04/08/24 00:00 05/08/24 00:00 04/08/24 11:27 0.5 MG Magnesium Sulfate 50 ml @ 0 mls/hr PROTOCOL PRN IV hypomagnesemia 04/07/24 13:00 05/07/24 12:59 Methylprednisolone Sodium Succinate (Solu-medROL 40MG) 40 mg Q6H IVP 04/07/24 21:30 05/07/24 21:29 04/08/24 08:17 40 MG Methylprednisolone Sodium Succinate (Solu-medROL 125MG) 60 mg Q8H IVP 04/07/24 13:00 04/07/24 21:17 DC 04/07/24 20:55 60 MG Montelukast Sodium (SinguLAIR) 10 mg HS PO 04/07/24 21:30 05/07/24 21:29 04/07/24 22:37 10 MG Pantoprazole Sodium (PROTonix 40MG INJ) 40 mg DAILY IVP 04/07/24 13:00 05/07/24 12:59 04/08/24 08:17 40 MG Piperacillin Sod/ Tazobactam Sod (Zosyn 3.375gm+NS 50ml) 3.375 gm Q8H IVPB 04/07/24 15:00 04/17/24 14:59 04/08/24 05:47 3.375 GM Potassium Chloride 100 ml @ 100 mls/hr AD PRN IV POTASSIUM PROTOCOL 04/07/24 13:00 05/07/24 12:59 Potassium Chloride (K-Dur/Klor-Con 20meq) 20 meq AD PRN PO POTASSIUM PROTOCOL 04/07/24 13:00 05/07/24 12:59 Potassium Chloride (KCl 10% Elixir 20meq/15ml) 20 meq AD PRN PO POTASSIUM PROTOCOL 04/07/24 13:00 05/07/24 12:59 Rivaroxaban (Xarelto) 2.5 mg BID PO 04/07/24 21:00 05/07/24 20:59 04/08/24 08:18 2.5 MG Sodium Chloride (NS 50ml) 50 ml AD IV 04/07/24 15:00 05/07/24 14:59 DIAGNOSTICS / RADIOLOGY: [ ] ASSESSMENT: Severe acute on chronic COPD exacerbation on BiPAP support Acute on chronic hypoxic respiratory failure needing BiPAP support Community acquired Pneumonia rule out History of hypotension History of hyperlipidemia History of atrial fibrillation on chronic anticoagulation History of PVD History of GERD PLAN: - be admitted to ICU -in reference to COPD exacerbation. Patient will be started on IV Solu-Medrol, DuoNebs q.4 hours. He will also be given IV Zosyn. We will deescalate antibiotics depending on cultures -obtain critical Care consultation -check TSH, CRP, procalcitonin, A1c -obtain home medications which will be reconciled once available -further orders per hospitalization course. Plan of care was discussed with patient at bedside Advanced Care Planning Which of the following were discussed: Hospice care: Yes __ No _x_ Therapeutic options: Yes __ No __ Advance directives: Yes __ No __ Other discussions: Pt is full code Discussed with who?: patient (Patient, family or surrogates) Voluntary nature of this service was explained to the patient? Yes _x_ No __ Amount of time spent: 25 minutes Total critical time spend > 35 minutes KANDACE Dixon MD, MD Apr 08, 2024 13:25
[2024-04-08] MEDS ORDERED: AZITHROMYCIN 500MG+NS 250ML 250 ML IVPB SCH (13:30)
[2024-04-08] MEDS: dexmedeTOMIDine 400MCG/NS100ML IV SCH (14:11)
--- NOTE | 2024-04-08 14:21 | HMCSR ---
APPROVED REPORT EXAM: Two-dimensional and M-mode echocardiogram with Doppler and color Doppler. Study Details: TDS INDICATION ICD: Suspect congestive heart failure 2D Dimensions LVOT diam2.4 (1.8-2.4cm) M-Mode Dimensions LA (MM)4.6 (1.6-4.0cm) Ao Root(MM)4.3 (2.0-3.7cm) Left Ventricle Left ventricular cavity appears small. There is normal left ventricular wall thickness. Unable to ass ess EF due to technically challenging study. Right Ventricle The right ventricle dilated. The right ventricular systolic function is normal. Atria Left atrium is not well visualized. Right atrium is not well visualized. Aortic Valve The aortic valve is not well visualized. Tricuspid Valve Tricuspid valve is not well visualized. Pulmonic Valve Pulmonic valve is not visualized. Great Vessels The aortic root is normal in size. Pericardium No pericardial effusion. Other Information Quality : Technically difficult study due to body habitus Conclusion Unable to assess EF due to technically challenging study.
--- NOTE | 2024-04-08 16:00 | NUR ---
IV ON LEFT HAND NO LONGER WORKING. NEW IV PLACED ON PT'S LEFT FOREARM. PT REFUSED TO HAVE A SECOND IV PLACED. TEACHING DONE ON IMPORTANCE OF IV ACCESS FOR MULTIPLE ANTIBIOTICS/EMERGENCIES.
[2024-04-08] MEDS: PoTASSium chloRIDE 20MEQ ER 20 MEQ ERTAB PO PRN (16:21)
--- NOTE | 2024-04-08 19:20 | HMCIMG ---
US VENOUS DOPPLER BILATERAL INDICATION: Swelling. RULE OUT DVT TECHNIQUE: Real-time venous Doppler ultrasound was performed using B mode, color flow and spectral analysis. FINDINGS: The visualized greater saphenous junction, common femoral, deep femoral, superficial femoral, popliteal and posterior tibial veins demonstrate normal compressibility and flow. No DVT is identified. IMPRESSION: No evidence of DVT in the visualized bilateral extremities.
[2024-04-08 20:55] LABS: ABG BASE EXCESS 3.4 mmol/L (-2.0-3.0); ABG HCO3 27.4 mmol/L (21.0-28.0); ABG OXYGEN SATURATION 93.3 % (94.0-98.0); ABG PCO2 40 mmHg (35-48); ABG PH 7.459 (7.350-7.450); DEVICE COMMENT RN RB; PO2, ARTERIAL BG 63.3 mmHg (83.0-108.0); VENT MODE, BG VENTI MASK (ROOM AIR)
[2024-04-08] MEDS: [UNRECOGNIZED DRUG - OTHER] PO SCH (21:13)
[2024-04-09] VITALS (87 sets, daily range): BP systolic 110–201; BP diastolic 49–120; PULSE 56–126; RESP 13–93; TEMP 97.5–97.8; O2SAT 90–96
[2024-04-09 04:38] LABS: HEMATOCRIT 40.1 % (42-54); IMMATURE GRANULOCYTE ABSOLUTE 0.04 K/uL (0-1); LYMPHOCYTES # (AUTO) 0.4 K/uL (1.0-4.8); LYMPHOCYTES % (AUTO) 6.1 % (21.0-51.0); MEAN CORPUSCULAR HGB CONC 34.4 g/dL (32.0-36.0); MONOCYTES # (AUTO) 0.2 K/uL (0.1-1.0); MONOCYTES % (AUTO) 3.5 % (3.0-13.0); NEUTROPHILS # (AUTO) 5.6 K/uL (1.8-7.7); NEUTROPHILS % (AUTO) 89.8 % (40.0-77.0); PLATELET COUNT (AUTO) 120 K/uL (130-400); RED BLOOD CELL COUNT(AUTO) 4.31 MIL/uL (4.50-6.20); RED CELL DISTRIBUTION WIDTH 12.1 % (11.0-15.5); WHITE BLOOD COUNT (AUTO) 6.3 K/uL (4.8-10.8)
--- NOTE | 2024-04-09 04:54 | NUR ---
refused abg earlier at 0330 stated later - bipap was used for about 4 hours - on Precedex - calm and passive. Vital signs stable. off bipap on venti last abg was better than last one improved
[2024-04-09 04:56] LABS: CREATININE 0.7 mg/dL (0.5-1.3); POTASSIUM 3.7 mmol/L (3.5-5.1)
[2024-04-09 04:58] LABS: INR 1.3 (0.85-1.15); PROTHROMBIN TIME 13.8 SEC (9.6-11.6)
[2024-04-09 04:59] LABS: PARTIAL THROMBOPLASTIN TIME 29.4 SEC (26.3-35.5)
--- NOTE | 2024-04-09 08:10 | HMCIMG ---
CHEST 1VW HISTORY: Respiratory failure COMPARISON: 04/08/2024 FINDINGS: A frontal projection of the chest was obtained. Prominent interstitial markings are seen with possible superimposed infiltrates. The heart is borderline enlarged. Aortic calcifications are seen. Degenerative changes are seen. IMPRESSION: 1. Prominent interstitial markings are seen with possible superimposed infiltrates.
[2024-04-09] MEDS: acetaMINOPHEN 325 MG TAB PO PRN (09:33)
--- NOTE | 2024-04-09 10:46 | CONS ---
[facility] CONSULTATION NOTE Date Patient Seen: Apr 09, 2024 Time of Visit: 10:45 Supervising Physician: [ ] Reason for Consultation: [ ] Primary Care Physician: Jorge Bob MD Outpatient Specialists: Inpatient Consults: HERMINIA, PROBLEM LIST: Acute on chronic hypoxemic respiratory failure, POA on BiPAP support now (home o2 3-4L) Suspected community-acquired pneumonia, POA Suspected acute CHF, POA COPD exacerbation, POA Hyperlipidemia Hyperglycemia History of Atrial fibrillation on chronic anticoagulation PVD GERD Former smoker of 96 pack-years HPI: This is an 84-year-old male with a past medical history of COPD, hypertension, hyperlipidemia, PVD, atrial fibrillation, and chronic respiratory failure on 4 L of oxygen at home who came in for increase shortness of breaths with yellow phlegm. Patient reports he has been having low appetite and nausea for about a week. He denies smoking now, but reports quitting approximately 35 years ago. He does report previous heavy smoking for 32 years more than three packs a day. On arrival to the emergency department O2 saturation was in the 80s. He was initially placed on non-rebreather mask at 100% FiO2 but persistently hypoxic and was changed to BiPAP at 100% FiO2 12/5 rr14. Patient was admitted to the ICU per catalyst team and we are consulted for COPD exacerbation. On assessment of patient he is awake alert and oriented x3 on BiPAP machine. He denies any fevers chills chest pain nausea vomiting or diarrhea. He does report shortness of breath per dL worsened over a week. With the increase phlegm production and cough. On assessment patient was hemodynamically stable with a blood pressure 141/76 afebrile with a temperature 97.9 heart rate of 100 respiratory rate of 22 O2 sat of 99% with FiO2 100% on BiPAP. WBCs were 7.3 H&H 14.6/41.7 with neutrophil count that is normal. Sodium 133 chloride 95 random glucose 128 mg/dL with a BNP of 114. COVID and influenza negative. INR 1.33. Initial ABG showed a pH of 7.46 pCO2 of 33 PO2 of 47.6 bicarb 23.1 with a ABG O2 saturation of 86.4. PAST MEDICAL HX: COPD History of PVD Atrial fibrillation PAST SURGICAL HX: Cholecystectomy Pack-year smoker quit more than 30 years ago Daily wine drinker Denies drug use SOCIAL HISTORY: No tobacco, ETOH, or illicit drug use Coded Allergies: No Known Allergies (Verified Allergy, Unknown, 08/03/17) REVIEW OF SYSTEMS: Const: [No fever, fatigue, or weight changes] Eyes:[ no recent vision problems] ENT: [No congestion, ear pain, or sore throat] C/V: [no chest pain, palpitations or edema] Resp: [Yes for cough, congestion, wheezing and shortness of breath. Yes for phlegm. GI: [No abdominal pain, nausea, vomiting, constipation, or diarrhea] : [No incontinence of or dyuria] M/S: [No joint or pain swelling] Skin: [No rash] Neuro: [no headache, focal numbness, or weakness, dizziness or seizures] Psych: [no depression or anxiety] Heme: [no abnormal bruising or bleeding] Lymph: [no swollen glands] PHYSICAL EXAM: GENERAL: alert, weak, awake oriented x 3 HEENT: EOMI, Sclera non icteric, moist mucosa NECK: Supple, no JVD, trachea midline LUNGS: Wheezes sounds bilaterally. No wheezes HEART: Regular rate and rhythm. Normal S1 and S2, without murmurs ABD: Abdomen soft, nontender. Bowel sounds present EXT: No clubbing cyanosis or edema NEURO: Alert and oriented to person, follows commands Vital Signs (last 8hr) Date Time Temp Pulse Resp B/P (MAP) Pulse Ox O2 Delivery O2 Flow Rate FiO2 04/09/24 08:00 96 Venti Mask+ 50 04/09/24 07:30 84 24 110/49 95 Venti Mask 50 04/09/24 07:15 100 28 141/74 86 Venti Mask 50 04/09/24 07:00 85 21 123/59 90 Venti Mask 50 04/09/24 06:30 69 20 Venti Mask 15.0 50 04/09/24 06:26 69 23 04/09/24 05:30 74 19 145/86 93 04/09/24 05:15 68 18 161/87 94 Venti Mask 50 04/09/24 05:00 64 18 151/79 94 04/09/24 04:30 62 16 144/75 94 Venti Mask 50 04/09/24 04:15 63 14 144/82 96 04/09/24 04:00 97.9 65 17 153/82 96 04/09/24 04:00 96 Bi-PAP+ 50 04/09/24 03:45 56 17 147/72 96 Venti Mask 50 04/09/24 03:32 57 19 40 04/09/24 03:30 58 19 147/77 96 04/09/24 03:15 60 16 150/78 96 04/09/24 03:00 59 15 152/78 96 Venti Mask 50 LABS: Hematology Labs: Test 04/09/24 04:16 Range/Units White Blood Count 6.3 # 4.8-10.8 K/uL Red Blood Count 4.31 L 4.50-6.20 MIL/uL Hemoglobin 13.8 L 14.0-18.0 g/dL Hematocrit 40.1 L 42-54 % Mean Corpuscular Volume 93.0 79-99 fL Mean Corpuscular Hemoglobin 32.0 27.0-33.0 pg Mean Corpuscular Hemoglobin Concent 34.4 32.0-36.0 g/dL Red Cell Distribution Width 12.1 11.0-15.5 % Platelet Count 120 L 130-400 K/uL Mean Platelet Volume 10.4 7.5-10.5 fL Immature Granulocyte % (Auto) 0.6 0-1 % Neutrophils (%) (Auto) 89.8 H 40.0-77.0 % Lymphocytes (%) (Auto) 6.1 L 21.0-51.0 % Monocytes (%) (Auto) 3.5 3.0-13.0 % Eosinophils (%) (Auto) 0.0 0.0-8.0 % Basophils (%) (Auto) 0.0 0.0-5.0 % Neutrophils # (Auto) 5.6 1.8-7.7 K/uL Lymphocytes # (Auto) 0.4 L 1.0-4.8 K/uL Monocytes # (Auto) 0.2 0.1-1.0 K/uL Eosinophils # (Auto) 0.00 0.00-0.70 K/uL Basophils # (Auto) 0.00 0.00-0.20 K/uL Absolute Immature Granulocyte (auto 0.04 0-1 K/uL Nucleated Red Blood Cells 0.0 0.0-0.19 % White Cell Morphology Comment See comments Chemistry Labs: Test 04/09/24 04:16 04/07/24 11:18 04/07/24 11:08 Range/Units Sodium Level 135 L 136-145 mmol/L Potassium Level 3.7 3.5-5.1 mmol/L Chloride Level 99 L 101-111 mmol/L Carbon Dioxide Level 29 21-32 mmol/L Blood Urea Nitrogen 18 7-18 mg/dL Creatinine 0.7 0.5-1.3 mg/dL Glomerular Filtration Rate Calc 91 >90 mL/min Random Glucose 149 H 70-105 mg/dL Total Calcium 8.7 8.5-10.1 mg/dL Hemoglobin A1c 5.3 4.0-6.0 % Estimated Average Glucose (eAG) 105 70-126 mg/dL C-Reactive Protein, Quantitative 2.70 0.5-3.0 mg/L Thyroid Stimulating Hormone (TSH) 4.62 #H 0.36-3.74 uIU/mL Lactic Acid Level 1.7 0.8-2.5 mmol/L Total Creatine Kinase 72 21-232 U/L Troponin I High Sensitivity 13 4-75 ng/L B-Type Natriuretic Peptide 114 H 0-100 pg/mL Procalcitonin < 0.05 L 0.05-0.5 ng/mL Coagulation Labs: Test 04/09/24 04:16 04/08/24 12:45 Range/Units Prothrombin Time 13.8 H 9.6-11.6 SEC Prothromb Time International Ratio 1.30 H 0.85-1.15 Activated Partial Thromboplast Time 29.4 26.3-35.5 SEC D-Dimer Quantitative (PE/DVT) 454 0-500 ng/mL DIAGNOSTICS / RADIOLOGY RESULTS: [ ] PLAN Continue Solu-Medrol 40 mg q.6 hours IV push and wean as tolerated Start Lasix 20 mg IV push q.12 hours Covered empirically for community-acquired pneumonia with Zosyn and doxycycline. Given exposure of smoking for many years, patient has a developed COPD with exacerbation. Singulair 10 mg daily Follow respiratory cultures Maintain O2 sats above 88% Gi PPX with protonix due to steroids Influenza a and B negative, COVID-19 negative, Chest x-ray in the morning, wean off O2 as tolerated. we will continue with nebulizer treatments with atrovent, Pulmicort, steroids. Patient to follow up as outpatient at pulmonary clinic in two weeks for PFTs after discharge, NEURO: Minimize central acting medications as possible. Fall Precautions. Well lighted room through the day and minimize interruptions through the night to prevent acute delirium. PULMONARY: Supplemental 02 as needed Titrate Fio2 to keep Spo2 > or = 88% DuoNebs and CPT as needed IS hourly while awake for pulmonary hygiene Out of bed to chair as tolerated VAP Bundle Vent/BIPAP Settings: BiPAP at 100% FiO2 10/5 rr18, wean O2 to maintain O2 sat above 88%. CARDIOVASCULAR: Follow hemodynamics. Titrate vasopressor to keep MAP >65 or systolic blood pressure >95mmHg Drips: Precedex drip LINES: piv GI & NUTRITION: Continue nutritional support Aspirations precautions Prokinetic agents and laxatives as needed KIDNEYS & ELECTROLYTES: Strict monitoring of intake and output Daily weights Avoid nephrotoxic agents Monitor electrolytes and replace as needed Goal urine output of 30mL/hr or 0.5mL/kg/hr Urine output: 1.2 L Fluid Balance: -410 mL ENDOCRINE: Maintain blood glucose between 100-180 at all times. Insulin sliding scale for blood glucose management INFECTIOUS DISEASE: Trend temperature. Russ-culture if febrile. Micro: [ ] Blood cultures Urine culture Respiratory culture Antibiotics: [ ] Zosyn Azithromycin HEMATOLOGY & COAGULATION: Monitor H&H. Keep Hgb > 7 Transfuse 1 unit of PRBC for Hgb < 7 Transfuse 1 pack of platelets of platelets < 20, 000 Watch for any signs and symptoms of bleeding SKIN: Pressure ulcer prevention per facility protocol Rehab: PT/OT Prophylaxis: GI: Protonix DVT: Patient on chronic anticoagulation with Xarelto Code Status: Full Resuscitation Disposition: ICU Other: Total patient care time exceeds 35 minutes excluding all procedures. Case was discussed and seen with my supervising physician. The above plan was formulated and agreed upon. ROEL FERRERA [facility] Apr 09, 2024 10:46
[2024-04-09] MEDS: BENZOCAINE/MENTH/CETYLPYRD CL 1 EACH LOZENGE MM PRN (10:49)
--- NOTE | 2024-04-09 11:00 | NUR ---
APPROACHED NURSE AUGUSTINE AND TOLD HER THAT PATIENT DRINKS ABOUT 4 GLASSES OF WINE AND 1 GLASS OF WHISKEY EVERY DAY. HAD CONCERNS OF PT'S CONDITION DUE TO HIS ETOH ABUSE.
[2024-04-09] MEDS ORDERED: IpraTROPium/alBUTERol SULFATE 3 ML SOLUTION IH PRN (11:30)
[2024-04-09] MEDS ORDERED: COMPOUND IV REFRIGERATED 1 EACH IVSOLN MISC PRN (12:00)
[2024-04-09] MEDS: FOLic ACID 5 MG/ML VIAL IV ONE (12:12)
[2024-04-09] MEDS: THIAMINE HCL 100 MG/ML 2ML VIAL IVP ONE (12:13)
--- NOTE | 2024-04-09 12:48 | PN ---
[facility] PROGRESS NOTE Date of Service: Apr 09, 2024 Time of Service: 12:47 Patient was seen and examined. Case discussed with the RN. He had a bout of cough but is doing well now. At that point his oxygen saturations dipped in the low 50s he is on 50% Ventimask and saturating 92% now. He is comfortable. He is also concerned about the weight loss he had. SUBJECTIVE: [ ] REVIEW OF SYSTEMS CONSTITUTIONAL: Denies fevers, chills, or night sweats. No unintentional weight loss reported. NEUROLOGICAL: Denies headache, amaurosis fugax, motor weakness, sensory deficit, vertigo/spinning sensation, gait abnormalities, or tremors. ENT: No hearing loss, otalgia, otorrhea, rhinitis, rhinorrhea, hoarseness, or sore throat. CARDIOVASCULAR: Denies any exertional angina, dyspnea on exertion, orthopnea, paroxysmal nocturnal dyspnea, palpitations, life-threatening arrhythmias, claudication. PULMONARY: , sputum production, shortness of breath, denied any hemoptysis GASTROINTESTINAL: Denies any type of dysphagia to either liquids or solids. Denies nausea, vomiting, pyrosis, early satiety, abdominal pain, diarrhea, constipation, or changes in stool consistency or caliber. Denies coffee-ground emesis, hematemesis, hematochezia, or melanotic stools. GENITOURINARY: Denies frequency, urgency, nocturia, hematuria or incontinence (Storage/Irritative symptoms.) Low urinary stream, straining to void, urinary intermittency or hesitancy, splitting of the voiding stream, terminal dribbling. ENDOCRINOLOGIC: Denies polyuria, polydipsia, polyphagia or heat/cold intolerances. HEMATOLOGIC: Denies thrombophilia/previous clots, or coagulopathy/bleeding disorders. ONCOLOGIC: Denies personal history of malignancy. DERMATOLOGIC: Denies rashes or pruritus. PSYCHIATRIC: Denies any suicidal or homicidal ideation. Denies hallucinations. PHYSICAL EXAM GENERAL APPEARANCE: The patient is awake, alert, and oriented, in no acute cardiopulmonary distress. NEUROLOGICAL: Cranial nerves II-XII grossly intact. Motor is 5/5 in bilateral upper and lower extremities proximal to distal. No sensory deficits. HEENT: Face is symmetric. Pupils are equal and reactive. Extraocular movements are intact. NECK: Supple. No JVD. No thyromegaly. No submental, submandibular, pre- /postauricular, occipital or supraclavicular lymphadenopathy. CHEST: Normal chest expansion. No Telemetry. LUNGS: Patient has wheezing present bilaterally. CARDIOVASCULAR: Regular. S1 and S2 normal. No appreciable rubs, murmurs or gallops. ABDOMEN: Soft, nontender, and nondistended. There is no rebound, voluntary guarding, or rigidity. : Deferred. No Booker. EXTREMITIES: Non-edematous and not cyanotic. No clubbing. Good capillary refill. SKIN: No skin breakdown. Vital Signs (last 8hr) Date Time Temp Pulse Resp B/P (MAP) Pulse Ox O2 Delivery O2 Flow Rate FiO2 04/09/24 11:15 93 30 177/73 91 Venti Mask 50 04/09/24 11:09 95 23 04/09/24 11:00 98 22 174/80 89 Venti Mask 50 04/09/24 10:45 104 29 163/86 90 Venti Mask 50 04/09/24 10:30 85 22 142/70 92 Venti Mask 50 04/09/24 10:15 90 27 155/74 93 Venti Mask 50 04/09/24 10:00 101 33 164/85 91 N/C High Flow System 12.0 04/09/24 09:45 91 24 143/78 93 N/C High Flow System 12.0 04/09/24 09:30 119 23 179/120 88 N/C High Flow System 12.0 04/09/24 09:15 102 21 138/58 92 N/C High Flow System 12.0 04/09/24 09:00 99 30 139/68 92 N/C High Flow System 12.0 04/09/24 08:30 126 93 89 04/09/24 08:15 77 23 131/74 94 Venti Mask 50 04/09/24 08:00 90 27 152/74 94 Venti Mask 50 04/09/24 08:00 96 Venti Mask+ 50 04/09/24 07:45 97.5 83 20 123/69 92 Venti Mask 50 04/09/24 07:30 84 24 110/49 95 Venti Mask 50 04/09/24 07:15 100 28 141/74 86 Venti Mask 50 04/09/24 07:00 85 21 123/59 90 Venti Mask 50 04/09/24 06:30 69 20 Venti Mask 15.0 50 04/09/24 06:26 69 23 04/09/24 05:30 74 19 145/86 93 04/09/24 05:15 68 18 161/87 94 Venti Mask 50 04/09/24 05:00 64 18 151/79 94 LABS: Laboratory: Test 04/09/24 04:16 04/08/24 20:54 04/08/24 12:45 04/08/24 00:14 Range/Units White Blood Count 6.3 # 4.8-10.8 K/uL Red Blood Count 4.31 L 4.50-6.20 MIL/uL Hemoglobin 13.8 L 14.0-18.0 g/dL Hematocrit 40.1 L 42-54 % Mean Corpuscular Volume 93.0 79-99 fL Mean Corpuscular Hemoglobin 32.0 27.0-33.0 pg Mean Corpuscular Hemoglobin Concent 34.4 32.0-36.0 g/dL Red Cell Distribution Width 12.1 11.0-15.5 % Platelet Count 120 L 130-400 K/uL Mean Platelet Volume 10.4 7.5-10.5 fL Immature Granulocyte % (Auto) 0.6 0-1 % Neutrophils (%) (Auto) 89.8 H 40.0-77.0 % Lymphocytes (%) (Auto) 6.1 L 21.0-51.0 % Monocytes (%) (Auto) 3.5 3.0-13.0 % Eosinophils (%) (Auto) 0.0 0.0-8.0 % Basophils (%) (Auto) 0.0 0.0-5.0 % Neutrophils # (Auto) 5.6 1.8-7.7 K/uL Lymphocytes # (Auto) 0.4 L 1.0-4.8 K/uL Monocytes # (Auto) 0.2 0.1-1.0 K/uL Eosinophils # (Auto) 0.00 0.00-0.70 K/uL Basophils # (Auto) 0.00 0.00-0.20 K/uL Absolute Immature Granulocyte (auto 0.04 0-1 K/uL Nucleated Red Blood Cells 0.0 0.0-0.19 % White Cell Morphology Comment See comments Prothrombin Time 13.8 H 9.6-11.6 SEC Prothromb Time International Ratio 1.30 H 0.85-1.15 Activated Partial Thromboplast Time 29.4 26.3-35.5 SEC Sodium Level 135 L 136-145 mmol/L Potassium Level 3.7 3.5-5.1 mmol/L Chloride Level 99 L 101-111 mmol/L Carbon Dioxide Level 29 21-32 mmol/L Blood Urea Nitrogen 18 7-18 mg/dL Creatinine 0.7 0.5-1.3 mg/dL Glomerular Filtration Rate Calc 91 >90 mL/min Random Glucose 149 H 70-105 mg/dL Total Calcium 8.7 8.5-10.1 mg/dL Blood Gas Specimen Type Arterial Arterial Blood pH 7.459 H 7.350-7.450 Arterial Blood Partial Pressure CO2 40 35-48 mmHg Arterial Blood Partial Pressure O2 63.3 L 83.0-108.0 mmHg Arterial Blood HCO3 27.4 21.0-28.0 mmol/L Arterial Blood Oxygen Saturation 93.3 L 94.0-98.0 % Arterial Blood Base Excess 3.4 H -2.0-3.0 mmol/L Blood Gas Temperature 37.0 35.5-37.0 CELSIUS Blood Gas Flow-by 15.00 0.00-15.00 L/min Blood Gas Vent Mode VENTI MASK ROOM AIR FiO2 50.0 % Blood Gas Specimen Comment RN RB D-Dimer Quantitative (PE/DVT) 454 0-500 ng/mL Urine Color LIGHT-YELLOW YELLOW Urine Appearance CLEAR CLEAR Urine pH 6.0 5.0-8.0 Urine Specific Crescent 1.008 1.001-1.031 Urine Protein NEGATIVE NEGATIVE mg/dL Urine Glucose (UA) NEGATIVE NEGATIVE mg/dL Urine Ketones 5 H NEGATIVE mg/dL Urine Occult Blood NEGATIVE NEGATIVE Urine Nitrate NEGATIVE NEGATIVE Urine Bilirubin NEGATIVE NEGATIVE mg/dL Urine Urobilinogen 0.2 0.2-1.0 mg/dL Urine Leukocyte Esterase NEGATIVE NEGATIVE Gregg/uL Current Medications Medications (Trade) Dose Ordered Sig/Luciana Route PRN Reason Start Time Stop Time Status Last Admin Dose Admin Acetaminophen (TYLenol 325MG TAB) 650 mg Q6H PRN PO MILD PAIN (1-3) 04/09/24 09:30 05/09/24 09:29 04/09/24 09:33 650 MG Albuterol (DUOneb) 1 UDVIAL Q6H PRN IH SHORTNESS OF BREATH/ WHEZING 04/09/24 11:30 05/09/24 11:29 Albuterol (DUOneb) 1 udvial [id number] IH 04/07/24 14:00 04/07/24 21:21 DC 04/07/24 18:45 1 UDVIAL Aspirin (Aspirin 81mg Chew Tab) 81 mg DAILY PO 04/08/24 09:00 05/08/24 08:59 04/09/24 08:28 81 MG Azithromycin 250 ml @ 250 mls/hr Q24H IVPB 04/08/24 13:30 04/07/24 21:20 DC Azithromycin 250 ml @ 250 mls/hr Q24H STAT IVPB 04/07/24 12:13 04/07/24 13:12 DC 04/07/24 12:51 250 MLS/HR Benzocaine (Cepacol Sore Throat Lozenge) 1 each Q4H PRN MM SORE THROAT 04/09/24 11:00 05/09/24 10:59 04/09/24 10:49 1 EACH Budesonide (Pulmicort 0.5 Mg/2ml) 0.5 mg BIDRESP IH 04/08/24 06:00 05/08/24 05:59 04/09/24 06:25 0.5 MG Clopidogrel Bisulfate (plaVIX 75MG) 75 mg DAILY PO 04/08/24 09:00 05/08/24 08:59 04/09/24 08:28 75 MG Dexmedetomidine/ Sodium Chloride (PRECEdex 400MCG/ 100ML-NS) 400 mcg PROTOCOL IV 04/08/24 14:00 05/08/24 13:59 04/08/24 21:26 400 MCG Diazepam (VALium 5 MG/ML 2 ML SYG) 5 mg ONCE STAT IV 04/07/24 11:19 04/07/24 11:21 DC 04/07/24 11:40 5 MG Diltiazem HCl (CARDIzem 60MG TAB) 30 mg TID PO 04/07/24 16:00 05/07/24 15:59 04/09/24 08:28 30 MG Doxycycline Hyclate 250 ml @ 125 mls/hr Q12H IV 04/07/24 21:30 04/17/24 21:29 04/09/24 08:28 125 MLS/HR Folic Acid (FolVITE 5 MG/ML VIAL) 1 MG IV DAILY DAILY IV 04/10/24 09:00 05/10/24 08:59 Furosemide (LASix 20MG VIAL) 20 mg Q12H IV 04/07/24 21:30 04/08/24 20:25 DC 04/08/24 08:17 20 MG Home Med (Home Medication) Vit C/E/Zn/ Coppr/Lutein/ Makenzie... BID PO 04/08/24 21:00 05/08/24 20:59 04/09/24 09:10 1 EACH Hydralazine HCl (APRESOLine 20MG INJ) 10 mg Q6H PRN IV ADMINISTER FOR SBP > 180 04/07/24 13:30 05/07/24 13:29 Ipratropium [place] (AtrovENT UD) 0.5 MG [id number] IH 04/08/24 00:00 04/09/24 11:11 DC 04/09/24 11:07 0.5 MG Magnesium Sulfate 50 ml @ 0 mls/hr PROTOCOL PRN IV hypomagnesemia 04/07/24 13:00 05/07/24 12:59 Methylprednisolone Sodium Succinate (Solu-medROL 40MG) 40 mg Q6H IVP 04/07/24 21:30 05/07/24 21:29 04/09/24 12:13 40 MG Methylprednisolone Sodium Succinate (Solu-medROL 125MG) 60 mg Q8H IVP 04/07/24 13:00 04/07/24 21:17 DC 04/07/24 20:55 60 MG Montelukast Sodium (SinguLAIR) 10 mg HS PO 04/07/24 21:30 05/07/24 21:29 04/08/24 21:12 10 MG Pantoprazole Sodium (PROTonix 40MG INJ) 40 mg DAILY IVP 04/07/24 13:00 05/07/24 12:59 04/09/24 08:27 40 MG Piperacillin Sod/ Tazobactam Sod (Zosyn 3.375gm+NS 50ml) 3.375 gm Q8H IVPB 04/07/24 15:00 04/17/24 14:59 04/09/24 08:27 3.375 GM Potassium Chloride 100 ml @ 100 mls/hr AD PRN IV POTASSIUM PROTOCOL 04/07/24 13:00 05/07/24 12:59 Potassium Chloride (K-Dur/Klor-Con 20meq) 20 meq AD PRN PO POTASSIUM PROTOCOL 04/07/24 13:00 04/09/24 11:29 DC 04/09/24 08:30 20 MEQ Potassium Chloride (KCl 10% Elixir 20meq/15ml) 20 meq AD PRN PO POTASSIUM PROTOCOL 04/07/24 13:00 05/07/24 12:59 Rivaroxaban (Xarelto) 2.5 mg BID PO 04/07/24 21:00 05/07/24 20:59 04/09/24 08:28 2.5 MG Sodium Chloride (NS 50ml) 50 ml AD IV 04/07/24 15:00 05/07/24 14:59 Thiamine HCl (Vitamin B-1) 100 mg DAILY IVP 04/10/24 09:00 05/10/24 08:59 DIAGNOSTICS / RADIOLOGY: [ ] ASSESSMENT: Severe acute on chronic COPD exacerbation on BiPAP support Acute on chronic hypoxic respiratory failure needing BiPAP support Community acquired Pneumonia rule out History of hypotension History of hyperlipidemia History of atrial fibrillation on chronic anticoagulation History of PVD History of GERD PLAN: - be admitted to ICU -in reference to COPD exacerbation. Patient will be started on IV Solu-Medrol, DuoNebs q.4 hours. He will also be given IV Zosyn. We will deescalate antibiotics depending on cultures -obtain critical Care consultation -check TSH, CRP, procalcitonin, A1c -obtain home medications which will be reconciled once available -further orders per hospitalization course. Plan of care was discussed with patient at bedside Advanced Care Planning Which of the following were discussed: Hospice care: Yes __ No _x_ Therapeutic options: Yes __ No __ Advance directives: Yes __ No __ Other discussions: Pt is full code Discussed with who?: patient (Patient, family or surrogates) Voluntary nature of this service was explained to the patient? Yes _x_ No __ Amount of time spent: 25 minutes Total critical time spend > 35 minutes KANDACE Dixon MD, MD Apr 09, 2024 12:48
[2024-04-09] MEDS: IpraTROPium 0.5 MG/2.5 ML INH IH ONE (18:29)
--- NOTE | 2024-04-09 20:20 | NUR ---
Patient very anxiious at this time - B/P in the 200's rechecked high 180s stated he normally has a routine of 3-5 wine glasses and 1 whiskey cup before bed- he started to feel very restless and sob 02 in the 80s - hx of copd with 02 at home 4-5 liters NC was placed on the bipap and does not seem to be compliant with bipap intervention - takes it off and on with poor judgement of disease process. Precedex drip was initiated again to kep pt calm and more comfortable with bipap pressure- understood. will cont to monitor fall risk interventions in place.
--- NOTE | 2024-04-09 21:53 | NUR ---
Patient more calmed leaving bipap on 02 sat above 94% - tolerating well - CIWA lowered to 1. tachycardia resolved and elevated blood pressure lowered to 140s from 200-180s. Will cont to monitor. CIWA interventions in place
--- NOTE | 2024-04-09 22:09 | PN ---
[facility] PROGRESS NOTE Date Patient Seen: Apr 09, 2024 Time of Visit: 22:01 Supervising Physician: Serge Ellis MD Primary Care Physician: Jorge Bob MD Outpatient Specialists: Inpatient Consults: Poly [facility]OPE PROBLEM LIST: Acute on chronic hypoxemic respiratory failure, POA on BiPAP support now (home o2 3-4L) Suspected community-acquired pneumonia, POA Suspected acute CHF, POA COPD exacerbation, POA Hyperlipidemia Hyperglycemia History of Atrial fibrillation on chronic anticoagulation PVD GERD Former smoker of 96 pack-years INTERVAL HISTORY: 04/08-Patient is awake alert and oriented x3. He has been keeping the BiPAP on due to he states "I&O like it". Patient is on Venturi mask with a FiO2 of 50% saturating 90%. Hemodynamically stable respiratory rate of 18 unlabored pulse of 80 afebrile. On ABG patient's pH 7.46 pCO2 of 37, PO2 of 52.3 bicarb 26.4 on FiO2 40%. WBCs 4.4 H&H 13.6/39.9 neutrophils 82.8. Sodium 135/97 creatinine 0.8 with GFR of 87 154 mg/dL. Offered Precedex drip for anxiety in order to leave BiPAP on. Patient verbalized agreement. Tolerated this afternoon BiPAP with Precedex. On microbiology blood cultures with no growth. 04/09-patient awake alert and oriented x3. He tolerated BiPAP for few hours 3-4 overnight with Precedex drip. Latest ABGs show pH of 7.45 pCO2 40 PO2 slightly improved 0.3 with a bicarb of 27.4. Patient currently on Venturi mask at 50% saturating 92%. Blood pressure 149/75 heart rate in the 90s, respiratory rate of 20 unlabored. Patient has been afebrile with a T-max of 97.9 and a T low of 97.2 in the last 24 hours. On laboratory WBCs are normal today with a H&H of 13.8/40.1 neutrophils are 89.8. Sodium 135 chloride 99 glucose 89 mg/dL. On chest x-ray this morning from interstitial markings are seen with superimposed infiltrates. We will continue with duo nebs q.6 hours Pulmicort treatments and Solu-Medrol 40 q.6 IV push for now we will wean as tolerated. REVIEW OF SYSTEMS: Const: [No fever, fatigue, or weight changes] Eyes:[ no recent vision problems] ENT: [No congestion, ear pain, or sore throat] C/V: [no chest pain, palpitations or edema] Resp: [Yes for cough, congestion, wheezing and shortness of breath. Yes for phl egm. GI: [No abdominal pain, nausea, vomiting, constipation, or diarrhea] : [No incontinence of or dyuria] M/S: [No joint or pain swelling] Skin: [No rash] Neuro: [no headache, focal numbness, or weakness, dizziness or seizures] Psych: [no depression or anxiety] Heme: [no abnormal bruising or bleeding] Lymph: [no swollen glands] PHYSICAL EXAM: GENERAL: alert, weak, awake oriented x 3 HEENT: EOMI, Sclera non icteric, moist mucosa NECK: Supple, no JVD, trachea midline LUNGS: Wheezes sounds bilaterally. No wheezes HEART: Regular rate and rhythm. Normal S1 and S2, without murmurs ABD: Abdomen soft, nontender. Bowel sounds present EXT: No clubbing cyanosis or edema NEURO: Alert and oriented to person, follows commands Vital Signs (last 8hr) Date Time Temp Pulse Resp B/P (MAP) Pulse Ox O2 Delivery O2 Flow Rate FiO2 04/09/24 21:30 77 20 142/76 94 BIPAP 50 04/09/24 21:15 79 20 134/73 93 BIPAP 50 04/09/24 21:00 83 19 146/75 93 04/09/24 20:45 87 26 145/77 91 BIPAP 50 04/09/24 20:31 105 24 160/96 88 04/09/24 20:30 97.9 102 18 89 BIPAP 50 04/09/24 20:27 99 23 167/81 90 04/09/24 20:15 102 27 91 04/09/24 20:15 90 Venti Mask+ 50 04/09/24 20:00 118 31 201/116 84 BIPAP 50 04/09/24 19:45 107 27 93 04/09/24 19:37 102 28 40 04/09/24 19:30 106 33 94 Venti Mask 50 04/09/24 19:15 103 27 91 04/09/24 19:00 103 29 170/99 93 Venti Mask 50 04/09/24 18:48 108 25 Venti Mask 15.0 50 04/09/24 18:30 108 23 04/09/24 18:00 109 28 176/83 94 Venti Mask 50 04/09/24 17:10 90 22 Venti Mask 15.0 50 04/09/24 17:00 109 28 168/85 87 Venti Mask 50 04/09/24 16:00 96 Venti Mask+ 50 04/09/24 16:00 97.5 88 22 145/67 92 Venti Mask 50 04/09/24 15:00 89 23 134/71 93 Venti Mask 50 04/09/24 14:30 88 26 137/70 93 Venti Mask 50 04/09/24 14:15 91 25 149/72 90 Venti Mask 50 LABS: Hematology Labs: Test 04/09/24 04:16 Range/Units White Blood Count 6.3 # 4.8-10.8 K/uL Red Blood Count 4.31 L 4.50-6.20 MIL/uL Hemoglobin 13.8 L 14.0-18.0 g/dL Hematocrit 40.1 L 42-54 % Mean Corpuscular Volume 93.0 79-99 fL Mean Corpuscular Hemoglobin 32.0 27.0-33.0 pg Mean Corpuscular Hemoglobin Concent 34.4 32.0-36.0 g/dL Red Cell Distribution Width 12.1 11.0-15.5 % Platelet Count 120 L 130-400 K/uL Mean Platelet Volume 10.4 7.5-10.5 fL Immature Granulocyte % (Auto) 0.6 0-1 % Neutrophils (%) (Auto) 89.8 H 40.0-77.0 % Lymphocytes (%) (Auto) 6.1 L 21.0-51.0 % Monocytes (%) (Auto) 3.5 3.0-13.0 % Eosinophils (%) (Auto) 0.0 0.0-8.0 % Basophils (%) (Auto) 0.0 0.0-5.0 % Neutrophils # (Auto) 5.6 1.8-7.7 K/uL Lymphocytes # (Auto) 0.4 L 1.0-4.8 K/uL Monocytes # (Auto) 0.2 0.1-1.0 K/uL Eosinophils # (Auto) 0.00 0.00-0.70 K/uL Basophils # (Auto) 0.00 0.00-0.20 K/uL Absolute Immature Granulocyte (auto 0.04 0-1 K/uL Nucleated Red Blood Cells 0.0 0.0-0.19 % White Cell Morphology Comment See comments Chemistry Labs: Test 04/09/24 04:16 Range/Units Sodium Level 135 L 136-145 mmol/L Potassium Level 3.7 3.5-5.1 mmol/L Chloride Level 99 L 101-111 mmol/L Carbon Dioxide Level 29 21-32 mmol/L Blood Urea Nitrogen 18 7-18 mg/dL Creatinine 0.7 0.5-1.3 mg/dL Glomerular Filtration Rate Calc 91 >90 mL/min Random Glucose 149 H 70-105 mg/dL Total Calcium 8.7 8.5-10.1 mg/dL Coagulation Labs: Test 04/09/24 04:16 04/08/24 12:45 Range/Units Prothrombin Time 13.8 H 9.6-11.6 SEC Prothromb Time International Ratio 1.30 H 0.85-1.15 Activated Partial Thromboplast Time 29.4 26.3-35.5 SEC D-Dimer Quantitative (PE/DVT) 454 0-500 ng/mL DIAGNOSTICS / RADIOLOGY RESULTS: Signed PATIENT: LEO ANGELO MR#: [id number] : 1940 SEX: M AGE: 84 LOCATION: [facility] ORDER 2300 STATUS: ADM IN REPORT#: [id number] SERVICE 0600 REASON: Hypoxic respiratory failure ORDERING PHYSICIAN: ROEL FERRERA PROCEDURE: CXR1VW - CHEST 1VW CHEST 1VW HISTORY: Respiratory failure COMPARISON: 04/08/2024 FINDINGS: A frontal projection of the chest was obtained. Prominent interstitial markings are seen with possible superimposed infiltrates. The heart is borderline enlarged. Aortic calcifications are seen. Degenerative changes are seen. IMPRESSION: 1. Prominent interstitial markings are seen with possible superimposed infiltrates. DICTATED BY: NETO LAGUNA MD DATE: 04/09/24806 ELECTRONICALLY SIGNED BY: NETO LAGUNA MD DATE: 04/09/24809 PLAN Continue Solu-Medrol 40 mg q.6 hours IV push and wean as tolerated Start Lasix 20 mg IV push q.12 hours Covered empirically for community-acquired pneumonia with Zosyn and doxycycline. Given exposure of smoking for many years, patient has a developed COPD with exacerbation. Singulair 10 mg daily Follow respiratory cultures Maintain O2 sats above 88% Gi PPX with protonix due to steroids Influenza a and B negative, COVID-19 negative, Chest x-ray in the morning, wean off O2 as tolerated. we will continue with nebulizer treatments with duoneb Pulmicort, steroids. Patient to follow up as outpatient at pulmonary clinic in two weeks for PFTs after discharge, NEURO: Minimize central acting medications as possible. Fall Precautions. Well lighted room through the day and minimize interruptions through the night to prevent acute delirium. PULMONARY: Supplemental 02 as needed Titrate Fio2 to keep Spo2 > or = 88% DuoNebs and CPT as needed IS hourly while awake for pulmonary hygiene Out of bed to chair as tolerated VAP Bundle Vent/BIPAP Settings: BiPAP at 100% FiO2 10/5 [id number], wean O2 to maintain O2 sat above 88%. CARDIOVASCULAR: Follow hemodynamics. Titrate vasopressor to keep MAP >65 or systolic blood pressure >95mmHg Drips: Precedex drip LINES: piv GI & NUTRITION: Continue nutritional support Aspirations precautions Prokinetic agents and laxatives as needed KIDNEYS & ELECTROLYTES: Strict monitoring of intake and output Daily weights Avoid nephrotoxic agents Monitor electrolytes and replace as needed Goal urine output of 30mL/hr or 0.5mL/kg/hr Urine output: 1.2 L Fluid Balance: -410 mL ENDOCRINE: Maintain blood glucose between 100-180 at all times. Insulin sliding scale for blood glucose management INFECTIOUS DISEASE: Trend temperature. Russ-culture if febrile. Micro: [ ] Blood cultures Urine culture Respiratory culture Antibiotics: [ ] Zosyn Azithromycin HEMATOLOGY & COAGULATION: Monitor H&H. Keep Hgb > 7 Transfuse 1 unit of PRBC for Hgb < 7 Transfuse 1 pack of platelets of platelets < 20, 000 Watch for any signs and symptoms of bleeding SKIN: Pressure ulcer prevention per facility protocol Rehab: PT/OT Prophylaxis: GI: Protonix DVT: Patient on chronic anticoagulation with Xarelto Code Status: Full Resuscitation Disposition: ICU Other: Total patient care time exceeds 35 minutes excluding all procedures. Case was discussed and seen with my supervising physician. The above plan was formulated and agreed upon. ROEL FERRERA [employer] Apr 09, 2024 22:09
[2024-04-09] MEDS: IpraTROPium/alBUTERol SULFATE 3 ML SOLUTION IH SCH (22:57)
[2024-04-10] VITALS (64 sets, daily range): BP systolic 94–182; BP diastolic 50–111; PULSE 64–122; RESP 11–40; TEMP 96.8–98.6; O2SAT 87–98
[2024-04-10 04:58] LABS: HEMATOCRIT 39.2 % (42-54); IMMATURE GRANULOCYTE ABSOLUTE 0.04 K/uL (0-1); LYMPHOCYTES # (AUTO) 0.4 K/uL (1.0-4.8); LYMPHOCYTES % (AUTO) 8.4 % (21.0-51.0); MEAN CORPUSCULAR HEMOGLOBIN 31.8 pg (27.0-33.0); MEAN CORPUSCULAR HGB CONC 33.7 g/dL (32.0-36.0); MEAN CORPUSCULAR VOLUME 94.5 fL (79-99); MONOCYTES # (AUTO) 0.2 K/uL (0.1-1.0); MONOCYTES % (AUTO) 3.5 % (3.0-13.0); NEUTROPHILS # (AUTO) 4.6 K/uL (1.8-7.7); NEUTROPHILS % (AUTO) 87.3 % (40.0-77.0); PLATELET COUNT (AUTO) 118 K/uL (130-400); RED BLOOD CELL COUNT(AUTO) 4.15 MIL/uL (4.50-6.20); WHITE BLOOD COUNT (AUTO) 5.2 K/uL (4.8-10.8)
[2024-04-10 05:20] LABS: CREATININE 0.8 mg/dL (0.5-1.3); POTASSIUM 4.7 mmol/L (3.5-5.1)
[2024-04-10] MEDS: THIAMINE HCL 100 MG/ML 2ML VIAL IVP SCH (08:14)
[2024-04-10] MEDS ORDERED: FOLic ACID 5 MG/ML VIAL IV SCH (09:00)
[2024-04-10] MEDS: FOLic ACID 5 MG/ML VIAL IV SCH (09:10)
--- NOTE | 2024-04-10 09:38 | HMCIMG ---
CHEST 1VW REASON: Hypoxic respiratory failure COMPARISON: 04/09/2024 FINDINGS: There is bibasilar atelectasis. Lungs are otherwise clear. Heart size is normal with no vascular congestion. Mediastinum and bony thorax appear unremarkable. IMPRESSION: 1. Bibasilar atelectasis, exam is otherwise unremarkable.
--- NOTE | 2024-04-10 11:57 | PN ---
[facility] PROGRESS NOTE Date Patient Seen: Apr 10, 2024 Time of Visit: 11:52 Supervising Physician: Segun Weir MD Primary Care Physician: Jorge Bob MD Outpatient Specialists: Inpatient Consults: Poly HOPE PROBLEM LIST: Acute on chronic hypoxemic respiratory failure, POA on BiPAP support now (home o2 3-4L) community-acquired pneumonia, POA Suspected acute CHF, POA COPD exacerbation, POA Hyperlipidemia Hyperglycemia History of Atrial fibrillation on chronic anticoagulation w/ Xarelto PVD GERD Former smoker of 96 pack-years INTERVAL HISTORY: 04/08-Patient is awake alert and oriented x3. He has been keeping the BiPAP on due to he states "I&O like it". Patient is on Venturi mask with a FiO2 of 50% s aturating 90%. Hemodynamically stable respiratory rate of 18 unlabored pulse of 80 afebrile. On ABG patient's pH 7.46 pCO2 of 37, PO2 of 52.3 bicarb 26.4 on FiO2 40%. WBCs 4.4 H&H 13.6/39.9 neutrophils 82.8. Sodium 135/97 creatinine 0.8 with GFR of 87 154 mg/dL. Offered Precedex drip for anxiety in order to leave BiPAP on. Patient verbalized agreement. Tolerated this afternoon BiPAP with Precedex. On microbiology blood cultures with no growth. 04/09-patient awake alert and oriented x3. He tolerated BiPAP for few hours 3-4 overnight with Precedex drip. Latest ABGs show pH of 7.45 pCO2 40 PO2 slightly improved 0.3 with a bicarb of 27.4. Patient currently on Venturi mask at 50% saturating 92%. Blood pressure 149/75 heart rate in the 90s, respiratory rate of 20 unlabored. Patient has been afebrile with a T-max of 97.9 and a T low of 97.2 in the last 24 hours. On laboratory WBCs are normal today with a H&H of 13.8/40.1 neutrophils are 89.8. Sodium 135 chloride 99 glucose 89 mg/dL. On chest x-ray this morning from interstitial markings are seen with superimposed infiltrates. We will continue with duo nebs q.6 hours Pulmicort treatments and Solu-Medrol 40 q.6 IV push for now we will wean as tolerated. 11/11 patient is awake alert oriented x3 on 6 L via nasal cannula saturating 90 %. He has been refusing his nebulizer treatments and ABGs this morning. Currently hemodynamically stable heart rate in the 70s respiratory rate of 19 unlabored. Patient has been afebrile this morning temperature was 96.8 on recheck 97.2. Patient with good urine output 1.6 L in last 24 hours. On laboratory H&H is 13.2/39.2 with a platelet count of [id number]. Chemistries sodium 135 chloride 99 BUN 21 creatinine 0.8 GFR of 87 glucose of 146 mg/dL BNP of 480. Lasix 20 mg q.12 IV started. On chest x-ray with increased pulmonary vascular congestion with bibasilar atelectasis. REVIEW OF SYSTEMS: Const: [No fever, fatigue, or weight changes] Eyes:[ no recent vision problems] ENT: [No congestion, ear pain, or sore throat] C/V: [no chest pain, palpitations or edema] Resp: [Yes for cough, congestion, wheezing and shortness of breath. Yes for phlegm. GI: [No abdominal pain, nausea, vomiting, constipation, or diarrhea] : [No incontinence of or dyuria] M/S: [No joint or pain swelling] Skin: [No rash] Neuro: [no headache, focal numbness, or weakness, dizziness or seizures] Psych: [no depression or anxiety] Heme: [no abnormal bruising or bleeding] Lymph: [no swollen glands] PHYSICAL EXAM: GENERAL: alert, weak, awake oriented x 3 HEENT: EOMI, Sclera non icteric, moist mucosa NECK: Supple, no JVD, trachea midline LUNGS: Wheezes sounds bilaterally. No wheezes HEART: Regular rate and rhythm. Normal S1 and S2, without murmurs ABD: Abdomen soft, nontender. Bowel sounds present EXT: No clubbing cyanosis or edema NEURO: Alert and oriented to person, follows commands Vital Signs (last 8hr) Date Time Temp Pulse Resp B/P (MAP) Pulse Ox O2 Delivery O2 Flow Rate FiO2 04/10/24 10:00 89 19 140/73 88 N/C High Flow System 04/10/24 09:00 80 21 138/78 93 N/C High Flow System 04/10/24 08:00 96.8 79 21 120/66 90 N/C High Flow System 04/10/24 07:50 91 Venti Mask+ 50 04/10/24 07:03 79 25 Venti Mask 15.0 50 04/10/24 07:00 83 21 120/73 89 N/C High Flow System 04/10/24 06:01 118 40 132/77 87 N/C High Flow System 6.0 04/10/24 06:00 88 21 88 04/10/24 05:53 82 28 163/110 91 N/C High Flow System 6.0 04/10/24 05:30 65 13 149/73 94 04/10/24 05:15 66 11 149/75 93 04/10/24 05:00 64 12 136/73 93 Venti Mask 50 04/10/24 04:45 69 18 144/72 91 04/10/24 04:31 69 16 146/71 92 Venti Mask 50 04/10/24 04:30 68 14 93 04/10/24 04:15 65 14 160/75 95 Venti Mask 50 04/10/24 04:06 95 Venti Mask+ 50 04/10/24 04:00 65 16 156/76 95 LABS: Hematology Labs: Test 04/10/24 04:42 04/09/24 04:16 Range/Units White Blood Count 5.2 4.8-10.8 K/uL Red Blood Count 4.15 L 4.50-6.20 MIL/uL Hemoglobin 13.2 L 14.0-18.0 g/dL Hematocrit 39.2 L 42-54 % Mean Corpuscular Volume 94.5 79-99 fL Mean Corpuscular Hemoglobin 31.8 27.0-33.0 pg Mean Corpuscular Hemoglobin Concent 33.7 32.0-36.0 g/dL Red Cell Distribution Width 12.0 11.0-15.5 % Platelet Count 118 L 130-400 K/uL Mean Platelet Volume 10.1 7.5-10.5 fL Immature Granulocyte % (Auto) 0.8 0-1 % Neutrophils (%) (Auto) 87.3 H 40.0-77.0 % Lymphocytes (%) (Auto) 8.4 L 21.0-51.0 % Monocytes (%) (Auto) 3.5 3.0-13.0 % Eosinophils (%) (Auto) 0.0 0.0-8.0 % Basophils (%) (Auto) 0.0 0.0-5.0 % Neutrophils # (Auto) 4.6 1.8-7.7 K/uL Lymphocytes # (Auto) 0.4 L 1.0-4.8 K/uL Monocytes # (Auto) 0.2 0.1-1.0 K/uL Eosinophils # (Auto) 0.00 0.00-0.70 K/uL Basophils # (Auto) 0.00 0.00-0.20 K/uL Absolute Immature Granulocyte (auto 0.04 0-1 K/uL Nucleated Red Blood Cells 0.0 0.0-0.19 % White Cell Morphology Comment See comments Chemistry Labs: Test 04/10/24 04:42 Range/Units Sodium Level 135 L 136-145 mmol/L Potassium Level 4.7 3.5-5.1 mmol/L Chloride Level 99 L 101-111 mmol/L Carbon Dioxide Level 29 21-32 mmol/L Blood Urea Nitrogen 21 H 7-18 mg/dL Creatinine 0.8 0.5-1.3 mg/dL Glomerular Filtration Rate Calc 87 >90 mL/min Random Glucose 146 H 70-105 mg/dL Total Calcium 8.6 8.5-10.1 mg/dL B-Type Natriuretic Peptide 480 H 0-100 pg/mL Coagulation Labs: Test 04/09/24 04:16 04/08/24 12:45 Range/Units Prothrombin Time 13.8 H 9.6-11.6 SEC Prothromb Time International Ratio 1.30 H 0.85-1.15 Activated Partial Thromboplast Time 29.4 26.3-35.5 SEC D-Dimer Quantitative (PE/DVT) 454 0-500 ng/mL DIAGNOSTICS / RADIOLOGY RESULTS: IMAGING REPORT Signed PATIENT: LEO ANGELO MR#: [id number] : 1940 SEX: M AGE: 84 LOCATION: 2CH ORDER 99 STATUS: ADM IN REPORT#: [id number] SERVICE 0600 REASON: Hypoxic respiratory failure ORDERING PHYSICIAN: ROEL FERRERA PROCEDURE: CXR1VW - CHEST 1VW CHEST 1VW REASON: Hypoxic respiratory failure COMPARISON: 04/09/2024 FINDINGS: There is bibasilar atelectasis. Lungs are otherwise clear. Heart size is normal with no vascular congestion. Mediastinum and bony thorax appear unremarkable. IMPRESSION: 1. Bibasilar atelectasis, exam is otherwise unremarkable. DICTATED BY: EMMA IRWIN MD DATE: 04/10/24934 ELECTRONICALLY SIGNED BY: EMMA IRWIN MD DATE: 04/10/24937 PLAN Continue Solu-Medrol 40 mg q.6 hours IV push and wean as tolerated Start Lasix 20 mg IV push q.12 hours Covered empirically for community-acquired pneumonia with Zosyn and doxycycline. Given exposure of smoking for many years, patient has a developed COPD with exacerbation. Singulair 10 mg daily Follow respiratory cultures Maintain O2 sats above 88% Gi PPX with protonix due to steroids Influenza a and B negative, COVID-19 negative, Chest x-ray in the morning, wean off O2 as tolerated. we will continue with nebulizer treatments with duoneb Pulmicort, steroids. Patient to follow up as outpatient at pulmonary clinic in two weeks for PFTs after discharge, NEURO: Minimize central acting medications as possible. Fall Precautions. Well lighted room through the day and minimize interruptions through the night to prevent acute delirium. PULMONARY: Supplemental 02 as needed Titrate Fio2 to keep Spo2 > or = 88% DuoNebs and CPT as needed IS hourly while awake for pulmonary hygiene Out of bed to chair as tolerated VAP Bundle Vent/BIPAP Settings: BiPAP at 100% FiO2 10/5 [id number], wean O2 to maintain O2 sat above 88%. CARDIOVASCULAR: Follow hemodynamics. Titrate vasopressor to keep MAP >65 or systolic blood pressure >95mmHg Drips: Precedex drip LINES: piv GI & NUTRITION: Continue nutritional support Aspirations precautions Prokinetic agents and laxatives as needed KIDNEYS & ELECTROLYTES: Strict monitoring of intake and output Daily weights Avoid nephrotoxic agents Monitor electrolytes and replace as needed Goal urine output of 30mL/hr or 0.5mL/kg/hr Urine output: 1.2 L Fluid Balance: -410 mL ENDOCRINE: Maintain blood glucose between 100-180 at all times. Insulin sliding scale for blood glucose management INFECTIOUS DISEASE: Trend temperature. Russ-culture if febrile. Micro: [ ] Blood cultures Urine culture Respiratory culture Antibiotics: [ ] Zosyn Azithromycin HEMATOLOGY & COAGULATION: Monitor H&H. Keep Hgb > 7 Transfuse 1 unit of PRBC for Hgb < 7 Transfuse 1 pack of platelets of platelets < 20, 000 Watch for any signs and symptoms of bleeding SKIN: Pressure ulcer prevention per facility protocol Rehab: PT/OT Prophylaxis: GI: Protonix DVT: Patient on chronic anticoagulation with Xarelto Code Status: Full Resuscitation Disposition: ICU Other: Total patient care time exceeds 35 minutes excluding all procedures. Case was discussed and seen with my supervising physician. The above plan was formulated and agreed upon. ROEL FERRERA [facility] Apr 10, 2024 11:57
--- NOTE | 2024-04-10 12:07 | PN ---
[facility] PROGRESS NOTE Date of Service: Apr 10, 2024 Time of Service: 11:59 SUBJECTIVE: 04/10 Pt seen at bedside, no acute events overnight. He is still requiring 7L nasal cannula, will continue to wean as able. Continue current care. Further recommendations per pulmonology. REVIEW OF SYSTEMS CONSTITUTIONAL: Denies fevers, chills, or night sweats. No unintentional weight loss reported. NEUROLOGICAL: Denies headache, amaurosis fugax, motor weakness, sensory deficit, vertigo/spinning sensation, gait abnormalities, or tremors. ENT: No hearing loss, otalgia, otorrhea, rhinitis, rhinorrhea, hoarseness, or sore throat. CARDIOVASCULAR: Denies any exertional angina, dyspnea on exertion, orthopnea, paroxysmal nocturnal dyspnea, palpitations, life-threatening arrhythmias, cl audication. PULMONARY: , sputum production, shortness of breath, denied any hemoptysis GASTROINTESTINAL: Denies any type of dysphagia to either liquids or solids. Denies nausea, vomiting, pyrosis, early satiety, abdominal pain, diarrhea, constipation, or changes in stool consistency or caliber. Denies coffee-ground emesis, hematemesis, hematochezia, or melanotic stools. GENITOURINARY: Denies frequency, urgency, nocturia, hematuria or incontinence (Storage/Irritative symptoms.) Low urinary stream, straining to void, urinary intermittency or hesitancy, splitting of the voiding stream, terminal dribbling. ENDOCRINOLOGIC: Denies polyuria, polydipsia, polyphagia or heat/cold int olerances. HEMATOLOGIC: Denies thrombophilia/previous clots, or coagulopathy/bleeding disorders. ONCOLOGIC: Denies personal history of malignancy. DERMATOLOGIC: Denies rashes or pruritus. PSYCHIATRIC: Denies any suicidal or homicidal ideation. Denies hallucinations. PHYSICAL EXAM GENERAL APPEARANCE: The patient is awake, alert, and oriented, in no acute cardiopulmonary distress. NEUROLOGICAL: Cranial nerves II-XII grossly intact. Motor is 5/5 in bilateral upper and lower extremities proximal to distal. No sensory deficits. HEENT: Face is symmetric. Pupils are equal and reactive. Extraocular movements are intact. NECK: Supple. No JVD. No thyromegaly. No submental, submandibular, pre- /postauricular, occipital or supraclavicular lymphadenopathy. CHEST: Normal chest expansion. No Telemetry. LUNGS: Patient has wheezing present bilaterally. CARDIOVASCULAR: Regular. S1 and S2 normal. No appreciable rubs, murmurs or gallops. ABDOMEN: Soft, nontender, and nondistended. There is no rebound, voluntary guarding, or rigidity. : Deferred. No Booker. EXTREMITIES: Non-edematous and not cyanotic. No clubbing. Good capillary refill. SKIN: No skin breakdown. Vital Signs (last 8hr) Date Time Temp Pulse Resp B/P (MAP) Pulse Ox O2 Delivery O2 Flow Rate FiO2 04/10/24 10:00 89 19 140/73 88 N/C High Flow System 7.0 04/10/24 09:00 80 21 138/78 93 N/C High Flow System 7.0 04/10/24 08:00 96.8 79 21 120/66 90 N/C High Flow System 7.0 04/10/24 07:50 91 Venti Mask+ 50 04/10/24 07:03 79 25 Venti Mask 15.0 50 04/10/24 07:00 83 21 120/73 89 N/C High Flow System 7.0 04/10/24 06:01 118 40 132/77 87 N/C High Flow System 6.0 04/10/24 06:00 88 21 88 04/10/24 05:53 82 28 163/110 91 N/C High Flow System 6.0 04/10/24 05:30 65 13 149/73 94 04/10/24 05:15 66 11 149/75 93 04/10/24 05:00 64 12 136/73 93 Venti Mask 50 04/10/24 04:45 69 18 144/72 91 04/10/24 04:31 69 16 146/71 92 Venti Mask 50 04/10/24 04:30 68 14 93 04/10/24 04:15 65 14 160/75 95 Venti Mask 50 04/10/24 04:06 95 Venti Mask+ 50 04/10/24 04:00 65 16 156/76 95 LABS: Laboratory: Test 04/10/24 04:42 04/09/24 04:16 04/08/24 20:54 04/08/24 12:45 Range/Units White Blood Count 5.2 4.8-10.8 K/uL Red Blood Count 4.15 L 4.50-6.20 MIL/uL Hemoglobin 13.2 L 14.0-18.0 g/dL Hematocrit 39.2 L 42-54 % Mean Corpuscular Volume 94.5 79-99 fL Mean Corpuscular Hemoglobin 31.8 27.0-33.0 pg Mean Corpuscular Hemoglobin Concent 33.7 32.0-36.0 g/dL Red Cell Distribution Width 12.0 11.0-15.5 % Platelet Count 118 L 130-400 K/uL Mean Platelet Volume 10.1 7.5-10.5 fL Immature Granulocyte % (Auto) 0.8 0-1 % Neutrophils (%) (Auto) 87.3 H 40.0-77.0 % Lymphocytes (%) (Auto) 8.4 L 21.0-51.0 % Monocytes (%) (Auto) 3.5 3.0-13.0 % Eosinophils (%) (Auto) 0.0 0.0-8.0 % Basophils (%) (Auto) 0.0 0.0-5.0 % Neutrophils # (Auto) 4.6 1.8-7.7 K/uL Lymphocytes # (Auto) 0.4 L 1.0-4.8 K/uL Monocytes # (Auto) 0.2 0.1-1.0 K/uL Eosinophils # (Auto) 0.00 0.00-0.70 K/uL Basophils # (Auto) 0.00 0.00-0.20 K/uL Absolute Immature Granulocyte (auto 0.04 0-1 K/uL Nucleated Red Blood Cells 0.0 0.0-0.19 % Sodium Level 135 L 136-145 mmol/L Potassium Level 4.7 3.5-5.1 mmol/L Chloride Level 99 L 101-111 mmol/L Carbon Dioxide Level 29 21-32 mmol/L Blood Urea Nitrogen 21 H 7-18 mg/dL Creatinine 0.8 0.5-1.3 mg/dL Glomerular Filtration Rate Calc 87 >90 mL/min Random Glucose 146 H 70-105 mg/dL Total Calcium 8.6 8.5-10.1 mg/dL B-Type Natriuretic Peptide 480 H 0-100 pg/mL White Cell Morphology Comment See comments Prothrombin Time 13.8 H 9.6-11.6 SEC Prothromb Time International Ratio 1.30 H 0.85-1.15 Activated Partial Thromboplast Time 29.4 26.3-35.5 SEC Blood Gas Specimen Type Arterial Arterial Blood pH 7.459 H 7.350-7.450 Arterial Blood Partial Pressure CO2 40 35-48 mmHg Arterial Blood Partial Pressure O2 63.3 L 83.0-108.0 mmHg Arterial Blood HCO3 27.4 21.0-28.0 mmol/L Arterial Blood Oxygen Saturation 93.3 L 94.0-98.0 % Arterial Blood Base Excess 3.4 H -2.0-3.0 mmol/L Blood Gas Temperature 37.0 35.5-37.0 CELSIUS Blood Gas Flow-by 15.00 0.00-15.00 L/min Blood Gas Vent Mode VENTI MASK ROOM AIR FiO2 50.0 % Blood Gas Specimen Comment RN RB D-Dimer Quantitative (PE/DVT) 454 0-500 ng/mL Current Medications Medications (Trade) Dose Ordered Sig/Luciana Route PRN Reason Start Time Stop Time Status Last Admin Dose Admin Acetaminophen (TYLenol 325MG TAB) 650 mg Q6H PRN PO MILD PAIN (1-3) 04/09/24 09:30 05/09/24 09:29 04/10/24 11:18 650 MG Albuterol (DUOneb) 1 UDVIAL Q6H IH 04/09/24 23:30 05/09/24 11:29 04/09/24 22:57 1 UDVIAL Albuterol (DUOneb) 1 UDVIAL Q6H PRN IH SHORTNESS OF BREATH/ WHEZING 04/09/24 11:30 04/09/24 22:07 DC Albuterol (DUOneb) 1 udvial [id number] IH 04/07/24 14:00 04/07/24 21:21 DC 04/07/24 18:45 1 UDVIAL Aspirin (Aspirin 81mg Chew Tab) 81 mg DAILY PO 04/08/24 09:00 05/08/24 08:59 04/10/24 08:13 81 MG Azithromycin 250 ml @ 250 mls/hr Q24H IVPB 04/08/24 13:30 04/07/24 21:20 DC Azithromycin 250 ml @ 250 mls/hr Q24H STAT IVPB 04/07/24 12:13 04/07/24 13:12 DC 04/07/24 12:51 250 MLS/HR Benzocaine (Cepacol Sore Throat Lozenge) 1 each Q4H PRN MM SORE THROAT 04/09/24 11:00 05/09/24 10:59 04/10/24 02:59 1 EACH Budesonide (Pulmicort 0.5 Mg/2ml) 0.5 mg BIDRESP IH 04/08/24 06:00 05/08/24 05:59 04/09/24 18:29 0.5 MG Clopidogrel Bisulfate (plaVIX 75MG) 75 mg DAILY PO 04/08/24 09:00 05/08/24 08:59 04/10/24 08:13 75 MG Dexmedetomidine/ Sodium Chloride (PRECEdex 400MCG/ 100ML-NS) 400 mcg PROTOCOL IV 04/08/24 14:00 05/08/24 13:59 04/10/24 03:11 400 MCG Diazepam (VALium 5 MG/ML 2 ML SYG) 5 mg ONCE STAT IV 04/07/24 11:19 04/07/24 11:21 DC 04/07/24 11:40 5 MG Diltiazem HCl (CARDIzem 60MG TAB) 30 mg TID PO 04/07/24 16:00 05/07/24 15:59 04/10/24 08:14 30 MG Doxycycline Hyclate 250 ml @ 125 mls/hr Q12H IV 04/07/24 21:30 04/17/24 21:29 04/10/24 09:10 125 MLS/HR Folic Acid (FolVITE 5 MG/ML VIAL) 1 MG IV DAILY DAILY IV 04/10/24 09:00 04/10/24 08:35 DC Folic Acid (FolVITE 5 MG/ML VIAL) 1 mg DAILY IV 04/10/24 09:00 05/10/24 08:59 04/10/24 09:10 1 MG Furosemide (LASix 20MG VIAL) 20 mg Q12H IV 04/10/24 12:00 05/10/24 11:59 Furosemide (LASix 20MG VIAL) 20 mg Q12H IV 04/07/24 21:30 04/08/24 20:25 DC 04/08/24 08:17 20 MG Home Med (Home Medication) Vit C/E/Zn/ Coppr/Lutein/ Makenzie... BID PO 04/08/24 21:00 129/24 20:59 04/09/24 20:30 1 EACH Hydralazine HCl (APRESOLine 20MG INJ) 10 mg Q6H PRN IV ADMINISTER FOR SBP > 180 04/07/24 13:30 05/07/24 13:29 Ipratropium [place] (AtrovENT UD) 0.5 MG [id number] IH 04/08/24 00:00 04/09/24 11:11 DC 04/09/24 11:07 0.5 MG Magnesium Sulfate 50 ml @ 0 mls/hr PROTOCOL PRN IV hypomagnesemia 04/07/24 13:00 05/07/24 12:59 Methylprednisolone Sodium Succinate (Solu-medROL 40MG) 40 mg Q6H IVP 04/07/24 21:30 05/07/24 21:29 04/10/24 09:14 40 MG Methylprednisolone Sodium Succinate (Solu-medROL 125MG) 60 mg Q8H IVP 04/07/24 13:00 04/07/24 21:17 DC 04/07/24 20:55 60 MG Montelukast Sodium (SinguLAIR) 10 mg HS PO 04/07/24 21:30 05/07/24 21:29 04/09/24 20:29 10 MG Pantoprazole Sodium (PROTonix 40MG INJ) 40 mg DAILY IVP 04/07/24 13:00 05/07/24 12:59 04/10/24 08:14 40 MG Piperacillin Sod/ Tazobactam Sod (Zosyn 3.375gm+NS 50ml) 3.375 gm Q8H IVPB 04/07/24 15:00 04/17/24 14:59 04/10/24 06:50 3.375 GM Potassium Chloride 100 ml @ 100 mls/hr AD PRN IV POTASSIUM PROTOCOL 04/07/24 13:00 05/07/24 12:59 Potassium Chloride (K-Dur/Klor-Con 20meq) 20 meq AD PRN PO POTASSIUM PROTOCOL 04/07/24 13:00 04/09/24 11:29 DC 04/09/24 08:30 20 MEQ Potassium Chloride (KCl 10% Elixir 20meq/15ml) 20 meq AD PRN PO POTASSIUM PROTOCOL 04/07/24 13:00 05/07/24 12:59 Rivaroxaban (Xarelto) 2.5 mg BID PO 04/07/24 21:00 05/07/24 20:59 04/10/24 08:20 2.5 MG Sodium Chloride (NS 50ml) 50 ml AD IV 04/07/24 15:00 04/10/24 08:33 DC Thiamine HCl (Vitamin B-1) 100 mg DAILY IVP 04/10/24 09:00 05/10/24 08:59 04/10/24 08:14 100 MG DIAGNOSTICS / RADIOLOGY: [ ] ASSESSMENT: Severe acute on chronic COPD exacerbation on BiPAP support Acute on chronic hypoxic respiratory failure needing BiPAP support Community acquired Pneumonia rule out History of hypotension hyperlipidemia atrial fibrillation on chronic anticoagulation PVD GERD PLAN: - Contiue IV Solu-Medrol, DuoNebs q.4 hours. - Continue he will also be given IV Zosyn. - Continue duonebs - Continue budesonide - Continue spirometry - Start daily peak flows - Continue xarelto - Continue diltiazem 30mg TID - Pulmonology consulted, appreciate recommendations Disposition: Pending improvement in respiratory status, weaning O2 down to 3-4L nasal cannula Greater than 35 minutes ICU time spent in care of patient JAYDON MOYA MD Apr 10, 2024 12:07
[2024-04-10] MEDS: furoSEMIDE 20MG VIAL IV SCH (13:04)
[2024-04-10] MEDS: guaiFENesin-DM 200/20MG 10ML PO PRN (15:04)
--- NOTE | 2024-04-10 15:10 | NUR ---
WHEEZING/SOB PT SITTING UP IN CHAIR WITH AUDIBLE WHEEZING, PT HAD REFUSED NEB TREATMENTS EARLIER TODAY. SOLUMEDROL IV GIVEN. INSTRUCTED PT TO AGREE TO RECEIVE NEB TREATMENT TO HELP WITH SOB AND WHEEZING. PT VERBALIZED UNDERSTANDING AND IS IN AGREEMENT. RT CALLED AND NOTIFIED.
[2024-04-10] MEDS: IpraTROPium/alBUTERol SULFATE 3 ML SOLUTION IH SCH (19:01)
[2024-04-11] VITALS (47 sets, daily range): BP systolic 106–166; BP diastolic 55–91; PULSE 75–126; RESP 8–61; TEMP 97–98.6; O2SAT 90–96
[2024-04-11 04:06] LABS: IMMATURE GRANULOCYTE ABSOLUTE 0.03 K/uL (0-1); LYMPHOCYTES # (AUTO) 0.3 K/uL (1.0-4.8); LYMPHOCYTES % (AUTO) 5.7 % (21.0-51.0); MEAN CORPUSCULAR HEMOGLOBIN 31.6 pg (27.0-33.0); MEAN CORPUSCULAR HGB CONC 33.6 g/dL (32.0-36.0); MONOCYTES # (AUTO) 0.3 K/uL (0.1-1.0); MONOCYTES % (AUTO) 4.6 % (3.0-13.0); NEUTROPHILS # (AUTO) 4.9 K/uL (1.8-7.7); NEUTROPHILS % (AUTO) 89.2 % (40.0-77.0); PLATELET COUNT (AUTO) 112 K/uL (130-400); RED BLOOD CELL COUNT(AUTO) 4.15 MIL/uL (4.50-6.20); RED CELL DISTRIBUTION WIDTH 11.9 % (11.0-15.5); WHITE BLOOD COUNT (AUTO) 5.5 K/uL (4.8-10.8)
[2024-04-11 04:27] LABS: ALBUMIN 3.1 g/dL (3.5-5.0); BILIRUBIN,TOTAL 0.5 mg/dL (0.2-1.0); CREATININE 0.8 mg/dL (0.5-1.3); POTASSIUM 4.3 mmol/L (3.5-5.1)
--- NOTE | 2024-04-11 09:56 | HMCIMG ---
CHEST 1VW REASON: Hypoxic respiratory failure COMPARISON: 04/10/2024 FINDINGS: There is mild bibasilar atelectasis unchanged. Lungs are otherwise clear. Heart size is normal with no vascular congestion. Mediastinum and bony thorax appear unremarkable. IMPRESSION: 1. Mild bibasilar atelectasis, unchanged, no new finding.
--- NOTE | 2024-04-11 12:05 | PN ---
[facility] PROGRESS NOTE Date Patient Seen: Apr 11, 2024 Time of Visit: 12:04 Supervising Physician: Dr. Weir Primary Care Physician: Jorge Bob MD Outpatient Specialists: Inpatient Consults: BIS, PROBLEM LIST: Acute on chronic hypoxemic respiratory failure, POA on BiPAP support now (home o2 4L) community-acquired pneumonia, POA Suspected acute CHF, POA COPD exacerbation, POA Hyperlipidemia Hyperglycemia History of Atrial fibrillation on chronic anticoagulation w/ Xarelto PVD GERD Former smoker of 96 pack-years INTERVAL HISTORY: 04/08-Patient is awake alert and oriented x3. He has been keeping the BiPAP on due to he states "I&O like it". Patient is on Venturi mask with a FiO2 of 50% saturating 90%. Hemodynamically stable respiratory rate of 18 unlabored pulse of 80 afebrile. On ABG patient's pH 7.46 pCO2 of 37, PO2 of 52.3 bicarb 26.4 on FiO2 40%. WBCs 4.4 H&H 13.6/39.9 neutrophils 82.8. Sodium 135/97 creatinine 0.8 with GFR of 87 154 mg/dL. Offered Precedex drip for anxiety in order to leave BiPAP on. Patient verbalized agreement. Tolerated this afternoon BiPAP with Precedex. On microbiology blood cultures with no growth. 04/09-patient awake alert and oriented x3. He tolerated BiPAP for few hours 3-4 overnight with Precedex drip. Latest ABGs show pH of 7.45 pCO2 40 PO2 slightly improved 0.3 with a bicarb of 27.4. Patient currently on Venturi mask at 50% saturating 92%. Blood pressure 149/75 heart rate in the 90s, respiratory rate of 20 unlabored. Patient has been afebrile with a T-max of 97.9 and a T low of 97.2 in the last 24 hours. On laboratory WBCs are normal today with a H&H of 13.8/40.1 neutrophils are 89.8. Sodium 135 chloride 99 glucose 89 mg/dL. On chest x-ray this morning from interstitial markings are seen with superimposed infiltrates. We will continue with duo nebs q.6 hours Pulmicort treatments and Solu-Medrol 40 q.6 IV push for now we will wean as tolerated. 04/10 patient is awake alert oriented x3 on 6 L via nasal cannula saturating 90 %. He has been refusing his nebulizer treatments and ABGs this morning. Currently hemodynamically stable heart rate in the 70s respiratory rate of 19 unlabored. Patient has been afebrile this morning temperature was 96.8 on recheck 97.2. Patient with good urine output 1.6 L in last 24 hours. On laboratory H&H is 13.2/39.2 with a platelet count of [id number]. Chemistries sodium 135 chloride 99 BUN 21 creatinine 0.8 GFR of 87 glucose of 146 mg/dL BNP of 480. Lasix 20 mg q.12 IV started. On chest x-ray with increased pulmonary vascular congestion with bibasilar atelectasis. 04/11 patient is up in the chair not in acute distress, denies shortness of breath. He remains on high-flow nasal cannula at 7 L with sats 91%. Continue current setting, keep sats greater than 88%. Taper down steroids. Continue nebulizer. Continue antibiotic Zosyn and doxycycline. From pulm/ critical standpoint, okay to transfer to LTAC. REVIEW OF SYSTEMS: Const: [No fever, fatigue, or weight changes] Eyes:[ no recent vision problems] ENT: [No congestion, ear pain, or sore throat] C/V: [no chest pain, palpitations or edema] Resp: [Yes for cough, congestion, wheezing and shortness of breath. Yes for phlegm. GI: [No abdominal pain, nausea, vomiting, constipation, or diarrhea] : [No incontinence of or dyuria] M/S: [No joint or pain swelling] Skin: [No rash] Neuro: [no headache, focal numbness, or weakness, dizziness or seizures] Psych: [no depression or anxiety] Heme: [no abnormal bruising or bleeding] Lymph: [no swollen glands] PHYSICAL EXAM: GENERAL: alert, weak, awake oriented x 3 HEENT: EOMI, Sclera non icteric, moist mucosa NECK: Supple, no JVD, trachea midline LUNGS: Wheezes sounds bilaterally. No wheezes HEART: Regular rate and rhythm. Normal S1 and S2, without murmurs ABD: Abdomen soft, nontender. Bowel sounds present EXT: No clubbing cyanosis or edema NEURO: Alert and oriented to person, follows commands Vital Signs (last 8hr) Date Time Temp Pulse Resp B/P (MAP) Pulse Ox O2 Delivery O2 Flow Rate FiO2 04/11/24 11:21 114 20 04/11/24 09:26 91 20 04/11/24 09:00 101 23 144/71 91 N/C High Flow System 7.0 04/11/24 08:00 97.0 97 25 125/77 91 N/C High Flow System 7.0 04/11/24 07:25 91 N/C Oxymizer Hi LPM* 7 60 04/11/24 07:00 87 23 129/65 91 N/C High Flow System 7.0 04/11/24 06:00 93 36 89 04/11/24 05:58 85 16 122/64 90 N/C High Flow System 7.0 04/11/24 05:30 79 17 93 04/11/24 05:00 81 24 90 04/11/24 04:55 85 25 106/65 92 N/C High Flow System 7.0 04/11/24 04:30 82 14 95 N/C High Flow System 7.0 04/11/24 04:25 96 N/C Oxymizer Hi LPM* 7 60 LABS: Hematology Labs: Test 04/11/24 03:58 Range/Units White Blood Count 5.5 4.8-10.8 K/uL Red Blood Count 4.15 L 4.50-6.20 MIL/uL Hemoglobin 13.1 L 14.0-18.0 g/dL Hematocrit 39.0 L 42-54 % Mean Corpuscular Volume 94.0 79-99 fL Mean Corpuscular Hemoglobin 31.6 27.0-33.0 pg Mean Corpuscular Hemoglobin Concent 33.6 32.0-36.0 g/dL Red Cell Distribution Width 11.9 11.0-15.5 % Platelet Count 112 L 130-400 K/uL Mean Platelet Volume 10.0 7.5-10.5 fL Immature Granulocyte % (Auto) 0.5 0-1 % Neutrophils (%) (Auto) 89.2 H 40.0-77.0 % Lymphocytes (%) (Auto) 5.7 L 21.0-51.0 % Monocytes (%) (Auto) 4.6 3.0-13.0 % Eosinophils (%) (Auto) 0.0 0.0-8.0 % Basophils (%) (Auto) 0.0 0.0-5.0 % Neutrophils # (Auto) 4.9 1.8-7.7 K/uL Lymphocytes # (Auto) 0.3 L 1.0-4.8 K/uL Monocytes # (Auto) 0.3 0.1-1.0 K/uL Eosinophils # (Auto) 0.00 0.00-0.70 K/uL Basophils # (Auto) 0.00 0.00-0.20 K/uL Absolute Immature Granulocyte (auto 0.03 0-1 K/uL Nucleated Red Blood Cells 0.0 0.0-0.19 % Chemistry Labs: Test 04/11/24 03:58 04/10/24 04:42 Range/Units Sodium Level 140 136-145 mmol/L Potassium Level 4.3 3.5-5.1 mmol/L Chloride Level 101 101-111 mmol/L Carbon Dioxide Level 31 21-32 mmol/L Blood Urea Nitrogen 26 H 7-18 mg/dL Creatinine 0.8 0.5-1.3 mg/dL Glomerular Filtration Rate Calc 87 >90 mL/min Random Glucose 137 H 70-105 mg/dL Lactic Acid Level 2.2 0.8-2.5 mmol/L Total Calcium 8.3 L 8.5-10.1 mg/dL Total Bilirubin 0.5 0.2-1.0 mg/dL Aspartate Amino Transf (AST/SGOT) 37 10-37 U/L Alanine Aminotransferase (ALT/SGPT) 33 12-78 U/L Alkaline Phosphatase 71 50-136 U/L Total Protein 6.0 6.0-8.3 g/dL Albumin 3.1 L 3.5-5.0 g/dL B-Type Natriuretic Peptide 480 H 0-100 pg/mL DIAGNOSTICS / RADIOLOGY RESULTS: [ ] PLAN Continue Solu-Medrol 40 mg q.6 hours IV push and wean as tolerated Start Lasix 20 mg IV push q.12 hours Covered empirically for community-acquired pneumonia with Zosyn and doxycycline. Given exposure of smoking for many years, patient has a developed COPD with exacerbation. Singulair 10 mg daily Follow respiratory cultures Maintain O2 sats above 88% Gi PPX with protonix due to steroids Influenza a and B negative, COVID-19 negative, Chest x-ray in the morning, wean off O2 as tolerated. we will continue with nebulizer treatments with duoneb Pulmicort, steroids. Patient to follow up as outpatient at pulmonary clinic in two weeks for PFTs after discharge, NEURO: Minimize central acting medications as possible. Fall Precautions. Well lighted room through the day and minimize interruptions through the night to prevent acute delirium. PULMONARY: Supplemental 02 as needed Titrate Fio2 to keep Spo2 > or = 88% DuoNebs and CPT as needed IS hourly while awake for pulmonary hygiene Out of bed to chair as tolerated VAP Bundle Vent/BIPAP Settings: BiPAP at 100% FiO2 10/5 [id number], wean O2 to maintain O2 sat above 88%. CARDIOVASCULAR: Follow hemodynamics. Titrate vasopressor to keep MAP >65 or systolic blood pressure >95mmHg Drips: Precedex drip LINES: piv GI & NUTRITION: Continue nutritional support Aspirations precautions Prokinetic agents and laxatives as needed KIDNEYS & ELECTROLYTES: Strict monitoring of intake and output Daily weights Avoid nephrotoxic agents Monitor electrolytes and replace as needed Goal urine output of 30mL/hr or 0.5mL/kg/hr Urine output: 1.2 L Fluid Balance: -410 mL ENDOCRINE: Maintain blood glucose between 100-180 at all times. Insulin sliding scale for blood glucose management INFECTIOUS DISEASE: Trend temperature. Russ-culture if febrile. Micro: [ ] Blood cultures Urine culture Respiratory culture Antibiotics: [ ] Zosyn Azithromycin HEMATOLOGY & COAGULATION: Monitor H&H. Keep Hgb > 7 Transfuse 1 unit of PRBC for Hgb < 7 Transfuse 1 pack of platelets of platelets < 20, 000 Watch for any signs and symptoms of bleeding SKIN: Pressure ulcer prevention per facility protocol Rehab: PT/OT Prophylaxis: GI: Protonix DVT: Patient on chronic anticoagulation with Xarelto Code Status: Full Resuscitation Disposition: ICU Other: Total patient care time exceeds 35 minutes excluding all procedures. Case was discussed and seen with my supervising physician. The above plan was f ormulated and agreed upon. DARWIN MOSQUERA WASH DRILLER Apr 11, 2024 12:05
--- NOTE | 2024-04-11 12:19 | NUR ---
CM NOTE/[facility] REFERR[facility] CM spoke to patient and spouse regarding d/c planning. CM explained LTAC level of care and length of stay. Patient spoke to CM about hospice. CM explained goals of hospice care and services provided. Spouse voiced not having assistance at home to care for patient. Aware of [place] home based program. 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 Discussed possible assisted living once stable for discharge home. CM explained that LTAC stay will be about one month and spouse can begin looking at options to transition patient to home. Patient and spouse verbalized understanding. Agreed to LTAC referral. CM obtained [facility] for [facility]. Spouse wanting to tour facility prior to making final decision on transfer. CM sent referral to [facility] with [facility]. Aware of pending facility tour. CM to f/u. Addendum: 04/11/24 at 1224 by PETRA FARRELL CM Amended: Links added.
[2024-04-11 12:21] LABS: INR 1.32 (0.85-1.15)
[2024-04-11 12:22] LABS: PARTIAL THROMBOPLASTIN TIME 28.5 SEC (26.3-35.5)
--- NOTE | 2024-04-11 13:29 | PN ---
[facility] PROGRESS NOTE Date of Service: Apr 11, 2024 Time of Service: 13:24 SUBJECTIVE: 04/10 Pt seen at bedside, no acute events overnight. He is still requiring 7L nasal cannula, will continue to wean as able. Continue current care. Further recommendations per pulmonology. 04/11 Pt seen at bedside, no acute events overnight. Pt continues with high O2 requirements, on 6L nasal cannula. He still has a prominent expiratory wheeze. Peak flow at 22% of expected. Will continue with nebulizers and systemic steroids. Pt to be referred to LTAC to continue care. Vitals and labs are otherwise relatively unremarkable. REVIEW OF SYSTEMS 12 point ROS negative unless noted in HPI PHYSICAL EXAM GENERAL APPEARANCE: The patient is awake, alert, and oriented, in no acute cardiopulmonary distress. NEUROLOGICAL: Cranial nerves II-XII grossly intact. Motor is 5/5 in bilateral upper and lower extremities proximal to distal. No sensory deficits. HEENT: Face is symmetric. Pupils are equal and reactive. Extraocular movements are intact. NECK: Supple. No JVD. No thyromegaly. No submental, submandibular, pre- /postauricular, occipital or supraclavicular lymphadenopathy. CHEST: Normal chest expansion. No Telemetry. LUNGS: Patient has wheezing present bilaterally. CARDIOVASCULAR: Regular. S1 and S2 normal. No appreciable rubs, murmurs or gallops. ABDOMEN: Soft, nontender, and nondistended. There is no rebound, voluntary guarding, or rigidity. : Deferred. No Booker. EXTREMITIES: Non-edematous and not cyanotic. No clubbing. Good capillary refill. SKIN: No skin breakdown. Vital Signs (last 8hr) Date Time Temp Pulse Resp B/P (MAP) Pulse Ox O2 Delivery O2 Flow Rate FiO2 04/11/24 11:21 114 20 04/11/24 09:26 91 20 04/11/24 09:00 101 23 144/71 91 N/C High Flow System 7.0 04/11/24 08:00 97.0 97 25 125/77 91 N/C High Flow System 7.0 04/11/24 07:25 91 N/C Oxymizer Hi LPM* 7 60 04/11/24 07:00 87 23 129/65 91 N/C High Flow System 7.0 04/11/24 06:00 93 36 89 04/11/24 05:58 85 16 122/64 90 N/C High Flow System 7.0 04/11/24 05:30 79 17 93 LABS: Laboratory: Test 04/11/24 11:48 04/11/24 03:58 04/10/24 04:42 Range/Units Prothrombin Time 14.0 H 9.6-11.6 SEC Prothromb Time International Ratio 1.32 H 0.85-1.15 Activated Partial Thromboplast Time 28.5 26.3-35.5 SEC White Blood Count 5.5 4.8-10.8 K/uL Red Blood Count 4.15 L 4.50-6.20 MIL/uL Hemoglobin 13.1 L 14.0-18.0 g/dL Hematocrit 39.0 L 42-54 % Mean Corpuscular Volume 94.0 79-99 fL Mean Corpuscular Hemoglobin 31.6 27.0-33.0 pg Mean Corpuscular Hemoglobin Concent 33.6 32.0-36.0 g/dL Red Cell Distribution Width 11.9 11.0-15.5 % Platelet Count 112 L 130-400 K/uL Mean Platelet Volume 10.0 7.5-10.5 fL Immature Granulocyte % (Auto) 0.5 0-1 % Neutrophils (%) (Auto) 89.2 H 40.0-77.0 % Lymphocytes (%) (Auto) 5.7 L 21.0-51.0 % Monocytes (%) (Auto) 4.6 3.0-13.0 % Eosinophils (%) (Auto) 0.0 0.0-8.0 % Basophils (%) (Auto) 0.0 0.0-5.0 % Neutrophils # (Auto) 4.9 1.8-7.7 K/uL Lymphocytes # (Auto) 0.3 L 1.0-4.8 K/uL Monocytes # (Auto) 0.3 0.1-1.0 K/uL Eosinophils # (Auto) 0.00 0.00-0.70 K/uL Basophils # (Auto) 0.00 0.00-0.20 K/uL Absolute Immature Granulocyte (auto 0.03 0-1 K/uL Nucleated Red Blood Cells 0.0 0.0-0.19 % Sodium Level 140 136-145 mmol/L Potassium Level 4.3 3.5-5.1 mmol/L Chloride Level 101 101-111 mmol/L Carbon Dioxide Level 31 21-32 mmol/L Blood Urea Nitrogen 26 H 7-18 mg/dL Creatinine 0.8 0.5-1.3 mg/dL Glomerular Filtration Rate Calc 87 >90 mL/min Random Glucose 137 H 70-105 mg/dL Lactic Acid Level 2.2 0.8-2.5 mmol/L Total Calcium 8.3 L 8.5-10.1 mg/dL Total Bilirubin 0.5 0.2-1.0 mg/dL Aspartate Amino Transf (AST/SGOT) 37 10-37 U/L Alanine Aminotransferase (ALT/SGPT) 33 12-78 U/L Alkaline Phosphatase 71 50-136 U/L Total Protein 6.0 6.0-8.3 g/dL Albumin 3.1 L 3.5-5.0 g/dL B-Type Natriuretic Peptide 480 H 0-100 pg/mL Current Medications Medications (Trade) Dose Ordered Sig/Luciana Route PRN Reason Start Time Stop Time Status Last Admin Dose Admin Acetaminophen (TYLenol 325MG TAB) 650 mg Q6H PRN PO MILD PAIN (1-3) 04/09/24 09:30 05/09/24 09:29 04/10/24 11:18 650 MG Albuterol (DUOneb) 1 UDVIAL Q6H IH 04/09/24 23:30 04/10/24 16:51 DC 04/10/24 15:18 1 UDVIAL Albuterol (DUOneb) 1 UDVIAL Q6H PRN IH SHORTNESS OF BREATH/ WHEZING 04/09/24 11:30 04/09/24 22:07 DC Albuterol (DUOneb) 1 UDVIAL [id number] IH 04/10/24 18:00 05/09/24 11:29 04/11/24 11:19 1 UDVIAL Albuterol (DUOneb) 1 udvial [id number] IH 04/07/24 14:00 04/07/24 21:21 DC 04/07/24 18:45 1 UDVIAL Aspirin (Aspirin 81mg Chew Tab) 81 mg DAILY PO 04/08/24 09:00 05/08/24 08:59 04/11/24 09:13 81 MG Azithromycin 250 ml @ 250 mls/hr Q24H IVPB 04/08/24 13:30 04/07/24 21:20 DC Azithromycin 250 ml @ 250 mls/hr Q24H STAT IVPB 04/07/24 12:13 04/07/24 13:12 DC 04/07/24 12:51 250 MLS/HR Benzocaine (Cepacol Sore Throat Lozenge) 1 each Q4H PRN MM SORE THROAT 04/09/24 11:00 05/09/24 10:59 04/10/24 20:56 1 EACH Budesonide (Pulmicort 0.5 Mg/2ml) 0.5 mg BIDRESP IH 04/08/24 06:00 05/08/24 05:59 04/11/24 09:24 0.5 MG Clopidogrel Bisulfate (plaVIX 75MG) 75 mg DAILY PO 04/08/24 09:00 05/08/24 08:59 04/11/24 09:13 75 MG Dexmedetomidine/ Sodium Chloride (PRECEdex 400MCG/ 100ML-NS) 400 mcg PROTOCOL IV 04/08/24 14:00 04/11/24 12:05 DC 04/11/24 02:28 400 MCG Diazepam (VALium 5 MG/ML 2 ML SYG) 5 mg ONCE STAT IV 04/07/24 11:19 04/07/24 11:21 DC 04/07/24 11:40 5 MG Diltiazem HCl (CARDIzem 60MG TAB) 30 mg TID PO 04/07/24 16:00 05/07/24 15:59 04/11/24 09:12 30 MG Doxycycline Hyclate 250 ml @ 125 mls/hr Q12H IV 04/07/24 21:30 04/17/24 21:29 04/11/24 09:13 125 MLS/HR Folic Acid (FolVITE 5 MG/ML VIAL) 1 MG IV DAILY DAILY IV 04/10/24 09:00 04/10/24 08:35 DC Folic Acid (FolVITE 5 MG/ML VIAL) 1 mg DAILY IV 04/10/24 09:00 05/10/24 08:59 04/11/24 09:14 1 MG Furosemide (LASix 20MG VIAL) 20 mg Q12H IV 04/10/24 12:00 05/10/24 11:59 04/11/24 12:55 20 MG Furosemide (LASix 20MG VIAL) 20 mg Q12H IV 04/07/24 21:30 04/08/24 20:25 DC 04/08/24 08:17 20 MG Guaifenesin/ Dextromethorphan (RobiTUSSin DM 200/20MG 10ML) 10 ml Q4H PRN PO COUGH 04/10/24 14:30 05/10/24 14:29 04/11/24 09:12 10 ML Home Med (Home Medication) Vit C/E/Zn/ Coppr/Lutein/ Makenzie... BID PO 04/08/24 21:00 05/08/24 20:59 04/10/24 20:54 1 EACH Hydralazine HCl (APRESOLine 20MG INJ) 10 mg Q6H PRN IV ADMINISTER FOR SBP > 180 04/07/24 13:30 05/07/24 13:29 Ipratropium [place] (AtrovENT UD) 0.5 MG [id number] IH 04/08/24 00:00 04/09/24 11:11 DC 04/09/24 11:07 0.5 MG Magnesium Sulfate 50 ml @ 0 mls/hr PROTOCOL PRN IV hypomagnesemia 04/07/24 13:00 05/07/24 12:59 Methylprednisolone Sodium Succinate (Solu-medROL 40MG) 40 mg Q6H IVP 04/07/24 21:30 04/11/24 11:51 DC 04/11/24 09:20 40 MG Methylprednisolone Sodium Succinate (Solu-medROL 40MG) 40 mg Q8H IVP 04/11/24 17:30 05/07/24 21:29 Methylprednisolone Sodium Succinate (Solu-medROL 125MG) 60 mg Q8H IVP 04/07/24 13:00 04/07/24 21:17 DC 04/07/24 20:55 60 MG Montelukast Sodium (SinguLAIR) 10 mg HS PO 04/07/24 21:30 05/07/24 21:29 04/10/24 20:52 10 MG Pantoprazole Sodium (PROTonix 40MG INJ) 40 mg DAILY IVP 04/07/24 13:00 05/07/24 12:59 04/11/24 09:12 40 MG Piperacillin Sod/ Tazobactam Sod (Zosyn 3.375gm+NS 50ml) 3.375 gm Q8H IVPB 04/07/24 15:00 04/17/24 14:59 04/11/24 06:27 3.375 GM Potassium Chloride 100 ml @ 100 mls/hr AD PRN IV POTASSIUM PROTOCOL 04/07/24 13:00 05/07/24 12:59 Potassium Chloride (K-Dur/Klor-Con 20meq) 20 meq AD PRN PO POTASSIUM PROTOCOL 04/07/24 13:00 04/09/24 11:29 DC 04/09/24 08:30 20 MEQ Potassium Chloride (KCl 10% Elixir 20meq/15ml) 20 meq AD PRN PO POTASSIUM PROTOCOL 04/07/24 13:00 05/07/24 12:59 Rivaroxaban (Xarelto) 2.5 mg BID PO 04/07/24 21:00 05/07/24 20:59 04/11/24 09:20 2.5 MG Sodium Chloride (NS 50ml) 50 ml AD IV 04/07/24 15:00 04/10/24 08:33 DC Thiamine HCl (Vitamin B-1) 100 mg DAILY IVP 04/10/24 09:00 05/10/24 08:59 04/11/24 09:14 100 MG DIAGNOSTICS / RADIOLOGY: [ ] ASSESSMENT: Severe acute on chronic COPD exacerbation on BiPAP support Acute on chronic hypoxic respiratory failure needing BiPAP support Community acquired Pneumonia rule out History of hypotension hyperlipidemia atrial fibrillation on chronic anticoagulation PVD GERD PLAN: - Contiue IV Solu-Medrol, DuoNebs q.4 hours. - Continue IV Zosyn. - Continue duonebs - Continue budesonide - Continue spirometry - Continue daily peak flows - Continue xarelto - Continue diltiazem 30mg TID - Pulmonology consulted, appreciate recommendations Disposition: Pending improvement in respiratory status, weaning O2 down to 3-4L nasal cannula, LTAC placement Greater than 35 minutes ICU time spent in care of patient JAYDON MOYA MD Apr 11, 2024 13:29
--- NOTE | 2024-04-11 17:43 | NUR ---
CM NOTE CM spoke to Ana with [facility]. States patient has been accepted and has ICU bed available. CM f/u with spouse. States she has discussed with patient and he is not wanting to transfer. Reports that they would like to stay here. CM updated Dr. 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 Discussion in regards to d/c planning to continue tomorrow. CM director also updated.
[2024-04-11] MEDS: Solu-medROL 40MG VIAL IVP SCH (17:56)
[2024-04-12] VITALS (27 sets, daily range): BP systolic 118–158; BP diastolic 56–101; PULSE 91–124; RESP 16–66; TEMP 97–98.5; O2SAT 90–94
[2024-04-12] MEDS: dilTIAZem 60MG TAB PO ONE (09:49)
--- NOTE | 2024-04-12 11:10 | PN ---
[facility] PROGRESS NOTE Date Patient Seen: Apr 12, 2024 Time of Visit: 11:07 Supervising Physician: Dr. Sheriff Primary Care Physician: Jorge Bob MD Outpatient Specialists: Inpatient Consults: HERMINIA, PROBLEM LIST: Acute on chronic hypoxemic respiratory failure, POA on BiPAP support now (home o2 4L) Community-acquired pneumonia, POA Suspected acute CHF, POA COPD exacerbation, POA Hyperlipidemia Hyperglycemia History of Atrial fibrillation on chronic anticoagulation w/ Xarelto PVD GERD Former smoker of 96 pack-years INTERVAL HISTORY: 04/08-Patient is awake alert and oriented x3. He has been keeping the BiPAP on due to he states "I&O like it". Patient is on Venturi mask with a FiO2 of 50% saturating 90%. Hemodynamically stable respiratory rate of 18 unlabored pulse of 80 afebrile. On ABG patient's pH 7.46 pCO2 of 37, PO2 of 52.3 bicarb 26.4 on FiO2 40%. WBCs 4.4 H&H 13.6/39.9 neutrophils 82.8. Sodium 135/97 creatinine 0.8 with GFR of 87 154 mg/dL. Offered Precedex drip for anxiety in order to leave BiPAP on. Patient verbalized agreement. Tolerated this afternoon BiPAP with Precedex. On microbiology blood cultures with no growth. 04/09-patient awake alert and oriented x3. He tolerated BiPAP for few hours 3-4 overnight with Precedex drip. Latest ABGs show pH of 7.45 pCO2 40 PO2 slightly improved 0.3 with a bicarb of 27.4. Patient currently on Venturi mask at 50% saturating 92%. Blood pressure 149/75 heart rate in the 90s, respiratory rate of 20 unlabored. Patient has been afebrile with a T-max of 97.9 and a T low of 97.2 in the last 24 hours. On laboratory WBCs are normal today with a H&H of 13.8/40.1 neutrophils are 89.8. Sodium 135 chloride 99 glucose 89 mg/dL. On chest x-ray this morning from interstitial markings are seen with superimposed infiltrates. We will continue with duo nebs q.6 hours Pulmicort treatments and Solu-Medrol 40 q.6 IV push for now we will wean as tolerated. 04/10 patient is awake alert oriented x3 on 6 L via nasal cannula saturating 90 %. He has been refusing his nebulizer treatments and ABGs this morning. Currently hemodynamically stable heart rate in the 70s respiratory rate of 19 unlabored. Patient has been afebrile this morning temperature was 96.8 on recheck 97.2. Patient with good urine output 1.6 L in last 24 hours. On laboratory H&H is 13.2/39.2 with a platelet count of [id number]. Chemistries sodium 135 chloride 99 BUN 21 creatinine 0.8 GFR of 87 glucose of 146 mg/dL BNP of 480. Lasix 20 mg q.12 IV started. On chest x-ray with increased pulmonary vascular congestion with bibasilar atelectasis. 04/11 patient is up in the chair not in acute distress, denies shortness of breath. He remains on high-flow nasal cannula at 7 L with sats 91%. Continue current setting, keep sats greater than 88%. Taper down steroids. Continue nebulizer. Continue antibiotic Zosyn and doxycycline. From pulm/ critical standpoint, okay to transfer to LTAC. 04/12 patient is awake alert oriented x3 sitting up at the side of the bed not in acute distress. Patient remains with the AFib with RVR up to 120, we can increase his diltiazem. Continue monitor hemodynamic. He has been given lab holiday today. Otherwise he remains on 6 L of oxygen support saturation oxygen is 90%. Otherwise he complained that he could not sleep last night because of frequent breathing treatments as well as IV stick. I Offered him options for his plan of care at this time given that he was reluctant to go to LTAC. Continuing current pace to recover though with his end-stage lung disease this is going to be very challenging versus a hospice at his current place at [facility], given his comorbidities, his life life expectancy will be less than 6 months. We will discuss this with his when she comes. Otherwise dg to PCCU. REVIEW OF SYSTEMS: Const: [No fever, fatigue, or weight changes] Eyes:[ no recent vision problems] ENT: [No congestion, ear pain, or sore throat] C/V: [no chest pain, palpitations or edema] Resp: [Yes for cough, congestion, wheezing and shortness of breath. Yes for phlegm. GI: [No abdominal pain, nausea, vomiting, constipation, or diarrhea] : [No incontinence of or dyuria] M/S: [No joint or pain swelling] Skin: [No rash] Neuro: [no headache, focal numbness, or weakness, dizziness or seizures] Psych: [no depression or anxiety] Heme: [no abnormal bruising or bleeding] Lymph: [no swollen glands] PHYSICAL EXAM: GENERAL: alert, weak, awake oriented x 3 HEENT: EOMI, Sclera non icteric, moist mucosa NECK: Supple, no JVD, trachea midline LUNGS: Wheezes sounds bilaterally. No wheezes HEART: Regular rate and rhythm. Normal S1 and S2, without murmurs ABD: Abdomen soft, nontender. Bowel sounds present EXT: No clubbing cyanosis or edema NEURO: Alert and oriented to person, follows commands Vital Signs (last 8hr) Date Time Temp Pulse Resp B/P (MAP) Pulse Ox O2 Delivery O2 Flow Rate FiO2 04/12/24 08:10 95 22 N/Cannula Oximizer Hi LPM 6.0 04/12/24 08:00 97.9 114 20 158/87 88 N/C High Flow System 7.0 04/12/24 08:00 90 N/C Oxymizer Hi LPM* 7 60 04/12/24 07:00 107 22 137/69 90 N/C High Flow System 7.0 04/12/24 06:36 92 20 04/12/24 04:00 93 N/C Oxymizer Hi LPM* 7 60 04/12/24 04:00 98.4 105 18 145/91 94 N/C High Flow System 7.0 LABS: Hematology Labs: Test 04/11/24 03:58 Range/Units White Blood Count 5.5 4.8-10.8 K/uL Red Blood Count 4.15 L 4.50-6.20 MIL/uL Hemoglobin 13.1 L 14.0-18.0 g/dL Hematocrit 39.0 L 42-54 % Mean Corpuscular Volume 94.0 79-99 fL Mean Corpuscular Hemoglobin 31.6 27.0-33.0 pg Mean Corpuscular Hemoglobin Concent 33.6 32.0-36.0 g/dL Red Cell Distribution Width 11.9 11.0-15.5 % Platelet Count 112 L 130-400 K/uL Mean Platelet Volume 10.0 7.5-10.5 fL Immature Granulocyte % (Auto) 0.5 0-1 % Neutrophils (%) (Auto) 89.2 H 40.0-77.0 % Lymphocytes (%) (Auto) 5.7 L 21.0-51.0 % Monocytes (%) (Auto) 4.6 3.0-13.0 % Eosinophils (%) (Auto) 0.0 0.0-8.0 % Basophils (%) (Auto) 0.0 0.0-5.0 % Neutrophils # (Auto) 4.9 1.8-7.7 K/uL Lymphocytes # (Auto) 0.3 L 1.0-4.8 K/uL Monocytes # (Auto) 0.3 0.1-1.0 K/uL Eosinophils # (Auto) 0.00 0.00-0.70 K/uL Basophils # (Auto) 0.00 0.00-0.20 K/uL Absolute Immature Granulocyte (auto 0.03 0-1 K/uL Nucleated Red Blood Cells 0.0 0.0-0.19 % Chemistry Labs: Test 04/11/24 03:58 Range/Units Sodium Level 140 136-145 mmol/L Potassium Level 4.3 3.5-5.1 mmol/L Chloride Level 101 101-111 mmol/L Carbon Dioxide Level 31 21-32 mmol/L Blood Urea Nitrogen 26 H 7-18 mg/dL Creatinine 0.8 0.5-1.3 mg/dL Glomerular Filtration Rate Calc 87 >90 mL/min Random Glucose 137 H 70-105 mg/dL Lactic Acid Level 2.2 0.8-2.5 mmol/L Total Calcium 8.3 L 8.5-10.1 mg/dL Total Bilirubin 0.5 0.2-1.0 mg/dL Aspartate Amino Transf (AST/SGOT) 37 10-37 U/L Alanine Aminotransferase (ALT/SGPT) 33 12-78 U/L Alkaline Phosphatase 71 50-136 U/L Total Protein 6.0 6.0-8.3 g/dL Albumin 3.1 L 3.5-5.0 g/dL Coagulation Labs: Test 04/11/24 11:48 Range/Units Prothrombin Time 14.0 H 9.6-11.6 SEC Prothromb Time International Ratio 1.32 H 0.85-1.15 Activated Partial Thromboplast Time 28.5 26.3-35.5 SEC DIAGNOSTICS / RADIOLOGY RESULTS: [ ] PLAN Wean steroids Start Lasix 20 mg IV push q.12 hours Covered empirically for community-acquired pneumonia with Zosyn and doxycycline. Given exposure of smoking for many years, patient has a developed COPD with exacerbation. Singulair 10 mg daily Follow respiratory cultures Maintain O2 sats above 88% Gi PPX with protonix due to steroids Influenza a and B negative, COVID-19 negative, Chest x-ray in the morning, wean off O2 as tolerated. we will continue with nebulizer treatments with duoneb Pulmicort, steroids. Patient to follow up as outpatient at pulmonary clinic in two weeks for PFTs after discharge, NEURO: Minimize central acting medications as possible. Fall Precautions. Well lighted room through the day and minimize interruptions through the night to prevent acute delirium. PULMONARY: Supplemental 02 as needed Titrate Fio2 to keep Spo2 > or = 88% DuoNebs and CPT as needed IS hourly while awake for pulmonary hygiene Out of bed to chair as tolerated VAP Bundle Vent/BIPAP Settings: BiPAP at 100% FiO2 10/5 [id number], wean O2 to maintain O2 sat above 88%. CARDIOVASCULAR: Follow hemodynamics. Titrate vasopressor to keep MAP >65 or systolic blood pressure >95mmHg Drips: NA LINES: piv GI & NUTRITION: Continue nutritional support Aspirations precautions Prokinetic agents and laxatives as needed KIDNEYS & ELECTROLYTES: Strict monitoring of intake and output Daily weights Avoid nephrotoxic agents Monitor electrolytes and replace as needed Goal urine output of 30mL/hr or 0.5mL/kg/hr Urine output: 1.2 L Fluid Balance: -410 mL ENDOCRINE: Maintain blood glucose between 100-180 at all times. Insulin sliding scale for blood glucose management INFECTIOUS DISEASE: Trend temperature. Russ-culture if febrile. Micro: [ ] Blood cultures Urine culture Respiratory culture Antibiotics: [ ] Zosyn Azithromycin HEMATOLOGY & COAGULATION: Monitor H&H. Keep Hgb > 7 Transfuse 1 unit of PRBC for Hgb < 7 Transfuse 1 pack of platelets of platelets < 20, 000 Watch for any signs and symptoms of bleeding SKIN: Pressure ulcer prevention per facility protocol Rehab: PT/OT Prophylaxis: GI: Protonix DVT: Patient on chronic anticoagulation with Xarelto Code Status: Full Resuscitation Disposition: PCCU Other: Total patient care time exceeds 35 minutes excluding all procedures. Case was discussed and seen with my supervising physician. The above plan was formulated and agreed upon. [facility] Apr 12, 2024 11:10
--- NOTE | 2024-04-12 12:28 | DS ---
Discharge Summary Hospital Course Summary: The patient initially admitted to the hospital April 07, 2024 with the following history of the present illness: 84-year-old male with a past medical history of COPD, hypertension, hyperlipidemia, PVD, history of atrial fibrillation who presented to the hospital secondary to shortness on breath and cough. Patient stated he has a chronic COPD and is on 4 L oxygen at home. For the past few days he has noted that he is having increasing cough with productive sputum which is yellowish white color. Labs in the ED were notable for white count of 7.3, hemoglobin was 14.6, platelet count [id number], sodium was 133, potassium was 4.3, creatinine was 0.6, Chest x-ray showed mild congestive changes. In the ED patient was initially placed on non-rebreather but had persistent hypoxia. He was subsequently placed on BiPAP support. Pulmonary consultation requested, recommendations were followed. Venous Doppler done bilaterally, negative for DVT. Echocardiogram done, unable to assess EF due to technically challenging study Today patient alert oriented x3, remains high-flow oxygen 7 L with a Oxymizer. Discussed with case management, patient accepted to [facility] for continuation of medical care. PHYSICAL EXAM GENERAL APPEARANCE: The patient is awake, alert, and oriented, in no acute cardiopulmonary distress. NEUROLOGICAL: Cranial nerves II-XII grossly intact. Motor is 5/5 in bilateral upper and lower extremities proximal to distal. No sensory deficits. HEENT: Face is symmetric. Pupils are equal and reactive. Extraocular movements are intact. NECK: Supple. No JVD. No thyromegaly. No submental, submandibular, pre- /postauricular, occipital or supraclavicular lymphadenopathy. CHEST: Normal chest expansion. No Telemetry. LUNGS: Patient has wheezing present bilaterally. CARDIOVASCULAR: Regular. S1 and S2 normal. No appreciable rubs, murmurs or gallops. ABDOMEN: Soft, nontender, and nondistended. There is no rebound, voluntary guarding, or rigidity. : Deferred. No Booker. EXTREMITIES: Non-edematous and not cyanotic. No clubbing. Good capillary refill. SKIN: No skin breakdown. [employer] Business Development Manager(s): Pulmonary and critical care Assessment/Plan: Final diagnosis Severe acute on chronic COPD exacerbation on BiPAP support Acute on chronic hypoxic respiratory failure needing BiPAP support Community acquired Pneumonia rule out History of hypotension hyperlipidemia atrial fibrillation on chronic anticoagulation PVD GERD Discharge Instructions: The patient to be discharged to [facility] for continuation of medical care. Home Medications: Reported Medications Cholecalciferol (Vitamin D3) (Vitamin D3) 1,250 Mcg (43303 Unit) Capsule, 1250 MCG PO DAILY, CAP 04/08/24 Oxybutynin Chloride (Oxybutynin Chloride) 5 Mg/5 Ml Syrup, 2.5 ML PO BID for 30 Days, #150 ML 0 Refills 04/08/24 Vit C/E/Zn/Coppr/Lutein/Zeaxan (Preservision Areds 2 Softgel) 250MG-90MG Capsule, 1 CAP PO BID for 30 Days, #60 CAP 0 Refills 04/08/24 Clopidogrel Bisulfate (Clopidogrel) 75 Mg Tablet, 1 TAB PO DAILY 04/08/24 Rivaroxaban (Xarelto) 2.5 Mg Tablet, 1 TAB PO BID 04/08/24 Diltiazem HCl (Diltiazem HCl 30 mg Tab) 30 Mg Tab, 1 TAB PO TID 04/08/24 Time spent arranging discharge: 31-60 minutes JANETTE RUTLEDGE MD Apr 12, 2024 12:28
--- NOTE | 2024-04-12 13:15 | NUR ---
received report from henry casillas, made aware of plan of care. pending [place] with hospice, CM aware.
--- NOTE | 2024-04-12 15:37 | NUR ---
CM NOTE/[facility] AT [facility] CM spoke to patient and spouse at bedside regarding d/c planning. States they have discussed options and prefer to have hospice services at [facility]. CM spoke to Leah at [facility]. States patient does have benefits to admit to SNF with hospice. States Medicare will cover hospice and they will cover SNF. CM provider vendor list and provided contracted hospice options available at [facility]. CM obtained NELIDA for #1 [facility] #2 [facility] and [facility]. CM sent referral to [facility], [facility] and [facility] social service assistant. CM spoke to Aleksandar with [facility]. CM explained that MD would like patient to be screened for possible GIP. CM also contacted Aaron with [facility]. Updated on patient's choice for [facility]. CM completed OOH DNR with patient and spouse. CM updated primary nurse, Dr. Roche, and Ophelia Serrano CARPENTER HELPER.
--- NOTE | 2024-04-12 18:14 | NUR ---
per pt after speaking with [facility] and [facility] he agrees to go to facility with services, possible for tomorrow. spouse at bedside when reps were by.
[2024-04-12] MEDS: Solu-medROL 40MG VIAL IVP SCH (21:11)
[2024-04-12] MEDS: dilTIAZem 60MG TAB PO SCH (21:12)
[2024-04-13] VITALS (14 sets, daily range): BP systolic 123–153; BP diastolic 61–74; PULSE 84–111; RESP 17–25; TEMP 97.7–98.4; O2SAT 90–94
[2024-04-13 04:31] LABS: BASOPHILS # (AUTO) 0.01 K/uL (0.00-0.20); BASOPHILS % (AUTO) 0.1 % (0.0-5.0); HEMATOCRIT 35.7 % (42-54); IMMATURE GRANULOCYTE ABSOLUTE 0.07 K/uL (0-1); LYMPHOCYTES # (AUTO) 0.4 K/uL (1.0-4.8); LYMPHOCYTES % (AUTO) 4.5 % (21.0-51.0); MEAN CORPUSCULAR HEMOGLOBIN 31.9 pg (27.0-33.0); MEAN CORPUSCULAR HGB CONC 33.3 g/dL (32.0-36.0); MEAN CORPUSCULAR VOLUME 95.7 fL (79-99); MONOCYTES # (AUTO) 0.4 K/uL (0.1-1.0); NEUTROPHILS # (AUTO) 7.2 K/uL (1.8-7.7); NEUTROPHILS % (AUTO) 89.5 % (40.0-77.0); PLATELET COUNT (AUTO) 148 K/uL (130-400); RED BLOOD CELL COUNT(AUTO) 3.73 MIL/uL (4.50-6.20)
[2024-04-13 04:42] LABS: CREATININE 0.9 mg/dL (0.5-1.3); POTASSIUM 3.4 mmol/L (3.5-5.1)
[2024-04-13] MEDS: PoTASSium chl 10% ELIXIR 20MEQ 20 MEQ/15 ML UDCUP PO PRN (06:49)
[2024-04-13] MEDS: PoTASSium chloRIDE 20MEQ ER 20 MEQ ERTAB PO ONE (08:34)
--- NOTE | 2024-04-13 09:53 | NUR ---
DCP: [facility] Sammi left message for Leah at [facility] to see if they have update. Sammi spoke to Liam at [facility], waiting for [facility] auth. Will update when recd
--- NOTE | 2024-04-13 10:51 | NUR ---
[facility] f/u Per Leah, they have not recd referral from [facility]. Leah spoke to Marcelina at [facility] and they will fax shortly. Leah to update when auth recd
--- NOTE | 2024-04-13 11:11 | PN ---
[facility] PROGRESS NOTE Date Patient Seen: Apr 13, 2024 Time of Visit: 11:10 Supervising Physician: Dr. Sheriff Primary Care Physician: Jorge Bob MD Outpatient Specialists: Inpatient Consults: BIS, PROBLEM LIST: Acute on chronic hypoxemic respiratory failure, POA (home o2 4L) Community-acquired pneumonia, POA Suspected acute CHF, POA End stage lung disease COPD exacerbation, POA Hyperlipidemia Hyperglycemia History of Atrial fibrillation on chronic anticoagulation w/ Xarelto PVD GERD Former smoker of 96 pack-years INTERVAL HISTORY: 04/08-Patient is awake alert and oriented x3. He has been keeping the BiPAP on due to he states "I&O like it". Patient is on Venturi mask with a FiO2 of 50% saturating 90%. Hemodynamically stable respiratory rate of 18 unlabored pulse of 80 afebrile. On ABG patient's pH 7.46 pCO2 of 37, PO2 of 52.3 bicarb 26.4 on FiO2 40%. WBCs 4.4 H&H 13.6/39.9 neutrophils 82.8. Sodium 135/97 creatinine 0.8 with GFR of 87 154 mg/dL. Offered Precedex drip for anxiety in order to leave BiPAP on. Patient verbalized agreement. Tolerated this afternoon BiPAP with Precedex. On microbiology blood cultures with no growth. 04/09-patient awake alert and oriented x3. He tolerated BiPAP for few hours 3-4 overnight with Precedex drip. Latest ABGs show pH of 7.45 pCO2 40 PO2 slightly improved 0.3 with a bicarb of 27.4. Patient currently on Venturi mask at 50% saturating 92%. Blood pressure 149/75 heart rate in the 90s, respiratory rate of 20 unlabored. Patient has been afebrile with a T-max of 97.9 and a T low of 97.2 in the last 24 hours. On laboratory WBCs are normal today with a H&H of 13.8/40.1 neutrophils are 89.8. Sodium 135 chloride 99 glucose 89 mg/dL. On chest x-ray this morning from interstitial markings are seen with superimposed infiltrates. We will continue with duo nebs q.6 hours Pulmicort treatments and Solu-Medrol 40 q.6 IV push for now we will wean as tolerated. 04/10 patient is awake alert oriented x3 on 6 L via nasal cannula saturating 90 %. He has been refusing his nebulizer treatments and ABGs this morning. Currently hemodynamically stable heart rate in the 70s respiratory rate of 19 unlabored. Patient has been afebrile this morning temperature was 96.8 on recheck 97.2. Patient with good urine output 1.6 L in last 24 hours. On laboratory H&H is 13.2/39.2 with a platelet count of [id number]. Chemistries sodium 135 chloride 99 BUN 21 creatinine 0.8 GFR of 87 glucose of 146 mg/dL BNP of 480. Lasix 20 mg q.12 IV started. On chest x-ray with increased pulmonary vascular congestion with bibasilar atelectasis. 04/11 patient is up in the chair not in acute distress, denies shortness of breath. He remains on high-flow nasal cannula at 7 L with sats 91%. Continue current setting, keep sats greater than 88%. Taper down steroids. Continue nebulizer. Continue antibiotic Zosyn and doxycycline. From pulm/ critical standpoint, okay to transfer to LTAC. 04/12 patient is awake alert oriented x3 sitting up at the side of the bed not in acute distress. Patient remains with the AFib with RVR up to 120, we can increase his diltiazem. Continue monitor hemodynamic. He has been given lab holiday today. Otherwise he remains on 6 L of oxygen support saturation oxygen is 90%. Otherwise he complained that he could not sleep last night because of frequent breathing treatments as well as IV stick. I Offered him options for his plan of care at this time given that he was reluctant to go to LTAC. Continuing current pace to recover though with his end-stage lung disease this is going to be very challenging versus a hospice at his current place at [facility], given his comorbidities, his life life expectancy will be less than 6 months. We will discuss this with his when she comes. Otherwise dg to PCCU. 04/13 patient is awake alert oriented x3 no acute event overnight patient remains on oxygen support at 7 L. saturation on oxygen is 90%. Heart rate is 110. T-max is 98.1. Respiratory rate is 17. Lab this morning is with remark able potassium 3.[address] After conversation with his , patient had decided for hospice. Case management is setting up for hospice at [facility]. REVIEW OF SYSTEMS: Const: [No fever, fatigue, or weight changes] Eyes:[ no recent vision problems] ENT: [No congestion, ear pain, or sore throat] C/V: [no chest pain, palpitations or edema] Resp: [Yes for cough, congestion, wheezing and shortness of breath. Yes for phlegm. GI: [No abdominal pain, nausea, vomiting, constipation, or diarrhea] : [No incontinence of or dyuria] M/S: [No joint or pain swelling] Skin: [No rash] Neuro: [no headache, focal numbness, or weakness, dizziness or seizures] Psych: [no depression or anxiety] Heme: [no abnormal bruising or bleeding] Lymph: [no swollen glands] PHYSICAL EXAM: GENERAL: alert, weak, awake oriented x 3 HEENT: EOMI, Sclera non icteric, moist mucosa NECK: Supple, no JVD, trachea midline LUNGS: Wheezes sounds bilaterally. No wheezes HEART: Regular rate and rhythm. Normal S1 and S2, without murmurs ABD: Abdomen soft, nontender. Bowel sounds present EXT: No clubbing cyanosis or edema NEURO: Alert and oriented to person, follows commands Vital Signs (last 8hr) Date Time Temp Pulse Resp B/P (MAP) Pulse Ox O2 Delivery O2 Flow Rate FiO2 04/13/24 08:00 97.9 110 17 136/61 90 N/C High Flow System 7.0 04/13/24 07:15 90 N/C Oxymizer Hi LPM* 7 60 04/13/24 06:16 88 19 04/13/24 06:16 89 21 N/Cannula Oximizer Hi LPM 6.0 04/13/24 04:00 97.7 87 17 141/66 91 N/C High Flow System 7.0 LABS: Hematology Labs: Test 04/13/24 04:11 Range/Units White Blood Count 8.0 4.8-10.8 K/uL Red Blood Count 3.73 L 4.50-6.20 MIL/uL Hemoglobin 11.9 L 14.0-18.0 g/dL Hematocrit 35.7 L 42-54 % Mean Corpuscular Volume 95.7 79-99 fL Mean Corpuscular Hemoglobin 31.9 27.0-33.0 pg Mean Corpuscular Hemoglobin Concent 33.3 32.0-36.0 g/dL Red Cell Distribution Width 12.0 11.0-15.5 % Platelet Count 148 # 130-400 K/uL Mean Platelet Volume 10.6 H 7.5-10.5 fL Immature Granulocyte % (Auto) 0.9 0-1 % Neutrophils (%) (Auto) 89.5 H 40.0-77.0 % Lymphocytes (%) (Auto) 4.5 L 21.0-51.0 % Monocytes (%) (Auto) 5.0 3.0-13.0 % Eosinophils (%) (Auto) 0.0 0.0-8.0 % Basophils (%) (Auto) 0.1 0.0-5.0 % Neutrophils # (Auto) 7.2 1.8-7.7 K/uL Lymphocytes # (Auto) 0.4 L 1.0-4.8 K/uL Monocytes # (Auto) 0.4 0.1-1.0 K/uL Eosinophils # (Auto) 0.00 0.00-0.70 K/uL Basophils # (Auto) 0.01 0.00-0.20 K/uL Absolute Immature Granulocyte (auto 0.07 0-1 K/uL Nucleated Red Blood Cells 0.0 0.0-0.19 % Chemistry Labs: Test 04/13/24 04:11 Range/Units Sodium Level 142 136-145 mmol/L Potassium Level 3.4 L 3.5-5.1 mmol/L Chloride Level 103 101-111 mmol/L Carbon Dioxide Level 33 H 21-32 mmol/L Blood Urea Nitrogen 37 H 7-18 mg/dL Creatinine 0.9 0.5-1.3 mg/dL Glomerular Filtration Rate Calc 84 >90 mL/min Random Glucose 133 H 70-105 mg/dL Total Calcium 8.3 L 8.5-10.1 mg/dL Coagulation Labs: Test 04/11/24 11:48 Range/Units Prothrombin Time 14.0 H 9.6-11.6 SEC Prothromb Time International Ratio 1.32 H 0.85-1.15 Activated Partial Thromboplast Time 28.5 26.3-35.5 SEC DIAGNOSTICS / RADIOLOGY RESULTS: [ ] PLAN Wean steroids Start Lasix 20 mg IV push q.12 hours Covered empirically for community-acquired pneumonia with Zosyn and doxycycline. Given exposure of smoking for many years, patient has a developed COPD with exacerbation. Singulair 10 mg daily Follow respiratory cultures Maintain O2 sats above 88% Gi PPX with protonix due to steroids Influenza a and B negative, COVID-19 negative, Chest x-ray in the morning, wean off O2 as tolerated. we will continue with nebulizer treatments with duoneb Pulmicort, steroids. Patient to follow up as outpatient at pulmonary clinic in two weeks for PFTs after discharge, NEURO: Minimize central acting medications as possible. Fall Precautions. Well lighted room through the day and minimize interruptions through the night to prevent acute delirium. PULMONARY: Supplemental 02 as needed Titrate Fio2 to keep Spo2 > or = 88% DuoNebs and CPT as needed IS hourly while awake for pulmonary hygiene Out of bed to chair as tolerated VAP Bundle Vent/BIPAP Settings: BiPAP at 100% FiO2 10/5 [id number], wean O2 to maintain O2 sat above 88%. CARDIOVASCULAR: Follow hemodynamics. Titrate vasopressor to keep MAP >65 or systolic blood pressure >95mmHg Drips: NA LINES: piv GI & NUTRITION: Continue nutritional support Aspirations precautions Prokinetic agents and laxatives as needed KIDNEYS & ELECTROLYTES: Strict monitoring of intake and output Daily weights Avoid nephrotoxic agents Monitor electrolytes and replace as needed Goal urine output of 30mL/hr or 0.5mL/kg/hr Urine output: 1.2 L Fluid Balance: -410 mL ENDOCRINE: Maintain blood glucose between 100-180 at all times. Insulin sliding scale for blood glucose management INFECTIOUS DISEASE: Trend temperature. Russ-culture if febrile. Micro: [ ] Blood cultures Urine culture Respiratory culture Antibiotics: [ ] Zosyn Azithromycin HEMATOLOGY & COAGULATION: Monitor H&H. Keep Hgb > 7 Transfuse 1 unit of PRBC for Hgb < 7 Transfuse 1 pack of platelets of platelets < 20, 000 Watch for any signs and symptoms of bleeding SKIN: Pressure ulcer prevention per facility protocol Rehab: PT/OT Prophylaxis: GI: Protonix DVT: Patient on chronic anticoagulation with Xarelto Code Status: Full Resuscitation Disposition: PCCU Other: Total patient care time exceeds 35 minutes excluding all procedures. Case was discussed and seen with my supervising physician. The above plan was formulated and agreed upon. [facility] Apr 13, 2024 11:11
--- NOTE | 2024-04-13 11:22 | NUR ---
CM NOTE/[facility] CM spoke to Aleksandar with [facility]. States patient has been accepted. Pending approval from [place] for [facility]. Once confirmed, they will deliver DME to SNF. Addendum: 04/13/24 at 1123 by PETRA FARRELL CM Amended: Links added.
--- NOTE | 2024-04-13 15:52 | PN ---
[facility] PROGRESS NOTE Date of Service: Apr 13, 2024 Time of Service: 15:50 SUBJECTIVE: 04/10 Pt seen at bedside, no acute events overnight. He is still requiring 7L nasal cannula, will continue to wean as able. Continue current care. Further recommendations per pulmonology. 04/11 Pt seen at bedside, no acute events overnight. Pt continues with high O2 requirements, on 6L nasal cannula. He still has a prominent expiratory wheeze. Peak flow at 22% of expected. Will continue with nebulizers and systemic steroids. Pt to be referred to LTAC to continue care. Vitals and labs are otherwise relatively unremarkable. 04/13 the patient has been seen and examined during my rounding, comfortably in bed, remains on supplemental oxygen via nasal cannula, no chest pain, shortness shortness for breath, no nausea, no vomiting. REVIEW OF SYSTEMS 12 point ROS negative unless noted in HPI PHYSICAL EXAM GENERAL APPEARANCE: The patient is awake, alert, and oriented, in no acute cardiopulmonary distress. NEUROLOGICAL: Cranial nerves II-XII grossly intact. Motor is 5/5 in bilateral upper and lower extremities proximal to distal. No sensory deficits. HEENT: Face is symmetric. Pupils are equal and reactive. Extraocular movements are intact. NECK: Supple. No JVD. No thyromegaly. No submental, submandibular, pre-/postauricular, occipital or supraclavicular lymphadenopathy. CHEST: Normal chest expansion. No Telemetry. LUNGS: Patient has wheezing present bilaterally. CARDIOVASCULAR: Regular. S1 and S2 normal. No appreciable rubs, murmurs or gallops. ABDOMEN: Soft, nontender, and nondistended. There is no rebound, voluntary guarding, or rigidity. : Deferred. No Booker. EXTREMITIES: Non-edematous and not cyanotic. No clubbing. Good capillary refill. SKIN: No skin breakdown. Vital Signs (last 8hr) Date Time Temp Pulse Resp B/P (MAP) Pulse Ox O2 Delivery O2 Flow Rate FiO2 04/13/24 12:01 98.2 111 25 140/74 93 N/C High Flow System 7.0 04/13/24 11:17 98 19 04/13/24 11:17 95 21 N/Cannula Oximizer Hi LPM 6.0 04/13/24 08:00 97.9 110 17 136/61 90 N/C High Flow System 7.0 LABS: Laboratory: Test 04/13/24 04:11 Range/Units White Blood Count 8.0 4.8-10.8 K/uL Red Blood Count 3.73 L 4.50-6.20 MIL/uL Hemoglobin 11.9 L 14.0-18.0 g/dL Hematocrit 35.7 L 42-54 % Mean Corpuscular Volume 95.7 79-99 fL Mean Corpuscular Hemoglobin 31.9 27.0-33.0 pg Mean Corpuscular Hemoglobin Concent 33.3 32.0-36.0 g/dL Red Cell Distribution Width 12.0 11.0-15.5 % Platelet Count 148 # 130-400 K/uL Mean Platelet Volume 10.6 H 7.5-10.5 fL Immature Granulocyte % (Auto) 0.9 0-1 % Neutrophils (%) (Auto) 89.5 H 40.0-77.0 % Lymphocytes (%) (Auto) 4.5 L 21.0-51.0 % Monocytes (%) (Auto) 5.0 3.0-13.0 % Eosinophils (%) (Auto) 0.0 0.0-8.0 % Basophils (%) (Auto) 0.1 0.0-5.0 % Neutrophils # (Auto) 7.2 1.8-7.7 K/uL Lymphocytes # (Auto) 0.4 L 1.0-4.8 K/uL Monocytes # (Auto) 0.4 0.1-1.0 K/uL Eosinophils # (Auto) 0.00 0.00-0.70 K/uL Basophils # (Auto) 0.01 0.00-0.20 K/uL Absolute Immature Granulocyte (auto 0.07 0-1 K/uL Nucleated Red Blood Cells 0.0 0.0-0.19 % Sodium Level 142 136-145 mmol/L Potassium Level 3.4 L 3.5-5.1 mmol/L Chloride Level 103 101-111 mmol/L Carbon Dioxide Level 33 H 21-32 mmol/L Blood Urea Nitrogen 37 H 7-18 mg/dL Creatinine 0.9 0.5-1.3 mg/dL Glomerular Filtration Rate Calc 84 >90 mL/min Random Glucose 133 H 70-105 mg/dL Total Calcium 8.3 L 8.5-10.1 mg/dL Current Medications Medications (Trade) Dose Ordered Sig/Luciana Route PRN Reason Start Time Stop Time Status Last Admin Dose Admin Acetaminophen (TYLenol 325MG TAB) 650 mg Q6H PRN PO MILD PAIN (1-3) 04/09/24 09:30 05/09/24 09:29 04/11/24 23:33 650 MG Albuterol (DUOneb) 1 UDVIAL Q6H IH 04/09/24 23:30 04/10/24 16:51 DC 04/10/24 15:18 1 UDVIAL Albuterol (DUOneb) 1 UDVIAL Q6H PRN IH SHORTNESS OF BREATH/ WHEZING 04/09/24 11:30 04/09/24 22:07 DC Albuterol (DUOneb) 1 UDVIAL [id number] IH 04/10/24 18:00 05/09/24 11:29 04/13/24 11:16 1 UDVIAL Albuterol (DUOneb) 1 udvial [id number] IH 04/07/24 14:00 04/07/24 21:21 DC 04/07/24 18:45 1 UDVIAL Aspirin (Aspirin 81mg Chew Tab) 81 mg DAILY PO 04/08/24 09:00 05/08/24 08:59 04/13/24 08:26 81 MG Azithromycin 250 ml @ 250 mls/hr Q24H IVPB 04/08/24 13:30 04/07/24 21:20 DC Azithromycin 250 ml @ 250 mls/hr Q24H STAT IVPB 04/07/24 12:13 04/07/24 13:12 DC 04/07/24 12:51 250 MLS/HR Benzocaine (Cepacol Sore Throat Lozenge) 1 each Q4H PRN MM SORE THROAT 04/09/24 11:00 05/09/24 10:59 04/11/24 16:10 1 EACH Budesonide (Pulmicort 0.5 Mg/2ml) 0.5 mg BIDRESP IH 04/08/24 06:00 05/08/24 05:59 04/13/24 06:16 0.5 MG Clopidogrel Bisulfate (plaVIX 75MG) 75 mg DAILY PO 04/08/24 09:00 05/08/24 08:59 04/13/24 08:26 75 MG Dexmedetomidine/ Sodium Chloride (PRECEdex 400MCG/ 100ML-NS) 400 mcg PROTOCOL IV 04/08/24 14:00 04/11/24 12:05 DC 04/11/24 02:28 400 MCG Diazepam (VALium 5 MG/ML 2 ML SYG) 5 mg ONCE STAT IV 04/07/24 11:19 04/07/24 11:21 DC 04/07/24 11:40 5 MG Diltiazem HCl (CARDIzem 60MG TAB) 30 mg TID PO 04/07/24 16:00 04/12/24 09:35 DC 04/12/24 08:56 30 MG Diltiazem HCl (CARDIzem 60MG TAB) 60 mg BID PO 04/12/24 21:00 05/12/24 20:59 04/13/24 08:26 60 MG Doxycycline Hyclate 250 ml @ 125 mls/hr Q12H IV 04/07/24 21:30 04/17/24 21:29 04/13/24 08:25 125 MLS/HR Folic Acid (FolVITE 5 MG/ML VIAL) 1 MG IV DAILY DAILY IV 04/10/24 09:00 04/10/24 08:35 DC Folic Acid (FolVITE 5 MG/ML VIAL) 1 mg DAILY IV 04/10/24 09:00 05/10/24 08:59 04/13/24 12:42 1 MG Furosemide (LASix 20MG VIAL) 20 mg Q12H IV 04/10/24 12:00 05/10/24 11:59 04/13/24 12:50 20 MG Furosemide (LASix 20MG VIAL) 20 mg Q12H IV 04/07/24 21:30 04/08/24 20:25 DC 04/08/24 08:17 20 MG Guaifenesin/ Dextromethorphan (RobiTUSSin DM 200/20MG 10ML) 10 ml Q4H PRN PO COUGH 04/10/24 14:30 05/10/24 14:29 04/13/24 08:43 10 ML Home Med (Home Medication) Vit C/E/Zn/ Coppr/Lutein/ Makenzie... BID PO 04/08/24 21:00 05/08/24 20:59 04/13/24 08:25 1 EACH Hydralazine HCl (APRESOLine 20MG INJ) 10 mg Q6H PRN IV ADMINISTER FOR SBP > 180 04/07/24 13:30 05/07/24 13:29 Ipratropium [place] (AtrovENT UD) 0.5 MG [id number] IH 04/08/24 00:00 04/09/24 11:11 DC 04/09/24 11:07 0.5 MG Magnesium Sulfate 50 ml @ 0 mls/hr PROTOCOL PRN IV hypomagnesemia 04/07/24 13:00 05/07/24 12:59 Methylprednisolone Sodium Succinate (Solu-medROL 40MG) 40 mg Q12H IVP 04/12/24 21:30 05/07/24 21:29 04/13/24 08:25 40 MG Methylprednisolone Sodium Succinate (Solu-medROL 40MG) 40 mg Q6H IVP 04/07/24 21:30 04/11/24 11:51 DC 04/11/24 09:20 40 MG Methylprednisolone Sodium Succinate (Solu-medROL 40MG) 40 mg Q8H IVP 04/11/24 17:30 04/12/24 11:11 DC 04/12/24 09:07 40 MG Methylprednisolone Sodium Succinate (Solu-medROL 125MG) 60 mg Q8H IVP 04/07/24 13:00 04/07/24 21:17 DC 04/07/24 20:55 60 MG Montelukast Sodium (SinguLAIR) 10 mg HS PO 04/07/24 21:30 05/07/24 21:29 04/12/24 21:11 10 MG Pantoprazole Sodium (PROTonix 40MG INJ) 40 mg DAILY IVP 04/07/24 13:00 05/07/24 12:59 04/13/24 08:26 40 MG Piperacillin Sod/ Tazobactam Sod (Zosyn 3.375gm+NS 50ml) 3.375 gm Q8H IVPB 04/07/24 15:00 04/17/24 14:59 04/13/24 15:15 3.375 GM Potassium Chloride 100 ml @ 100 mls/hr AD PRN IV POTASSIUM PROTOCOL 04/07/24 13:00 05/07/24 12:59 Potassium Chloride (K-Dur/Klor-Con 20meq) 20 meq AD PRN PO POTASSIUM PROTOCOL 04/07/24 13:00 04/09/24 11:29 DC 04/09/24 08:30 20 MEQ Potassium Chloride (KCl 10% Elixir 20meq/15ml) 20 meq AD PRN PO POTASSIUM PROTOCOL 04/07/24 13:00 05/07/24 12:59 04/13/24 08:33 20 MEQ Rivaroxaban (Xarelto) 2.5 mg BID PO 04/07/24 21:00 05/07/24 20:59 04/13/24 08:27 2.5 MG Sodium Chloride (NS 50ml) 50 ml AD IV 04/07/24 15:00 04/10/24 08:33 DC Thiamine HCl (Vitamin B-1) 100 mg DAILY IVP 04/10/24 09:00 05/10/24 08:59 04/13/24 08:25 100 MG DIAGNOSTICS / RADIOLOGY: [ ] SSESSMENT: Severe acute on chronic COPD exacerbation on BiPAP support Acute on chronic hypoxic respiratory failure needing BiPAP support Community acquired Pneumonia rule out History of hypotension hyperlipidemia atrial fibrillation on chronic anticoagulation PVD GERD PLAN: - Contiue IV Solu-Medrol, DuoNebs q.4 hours. - Continue IV Zosyn. - Continue duonebs - Continue budesonide - Continue spirometry - Continue daily peak flows - Continue xarelto - Continue diltiazem 30mg TID - Pulmonology consulted, appreciate recommendations Disposition: Patient to be transferred to medical floor, discussed with case management, pending insurance approval for the patient to be discharged to senior care facility with hospice services. JANETTE RUTLEDGE MD Apr 13, 2024 15:52
--- NOTE | 2024-04-13 15:53 | PN ---
[facility] PROGRESS NOTE Date of Service: Apr 12, 2024 Time of Service: 15:52 SUBJECTIVE: 04/10 Pt seen at bedside, no acute events overnight. He is still requiring 7L nasal cannula, will continue to wean as able. Continue current care. Further recommendations per pulmonology. 04/11 Pt seen at bedside, no acute events overnight. Pt continues with high O2 requirements, on 6L nasal cannula. He still has a prominent expiratory wheeze. Peak flow at 22% of expected. Will continue with nebulizers and systemic steroids. Pt to be referred to LTAC to continue care. Vitals and labs are otherwise relatively unremarkable. 04/12 the patient has been seen and examined during my rounding, comfortably in bed, remains on supplemental oxygen via nasal cannula, no chest pain, shortness shortness for breath, no nausea, no vomiting. 04/13 the patient has been seen and examined during my rounding, comfortably in bed, remains on supplemental oxygen via nasal cannula, no chest pain, shortness shortness for breath, no nausea, no vomiting. REVIEW OF SYSTEMS 12 point ROS negative unless noted in HPI PHYSICAL EXAM GENERAL APPEARANCE: The patient is awake, alert, and oriented, in no acute cardiopulmonary distress. NEUROLOGICAL: Cranial nerves II-XII grossly intact. Motor is 5/5 in bilateral upper and lower extremities proximal to distal. No sensory deficits. HEENT: Face is symmetric. Pupils are equal and reactive. Extraocular movements are intact. NECK: Supple. No JVD. No thyromegaly. No submental, submandibular, pre- /postauricular, occipital or supraclavicular lymphadenopathy. CHEST: Normal chest expansion. No Telemetry. LUNGS: Patient has wheezing present bilaterally. CARDIOVASCULAR: Regular. S1 and S2 normal. No appreciable rubs, murmurs or gallops. ABDOMEN: Soft, nontender, and nondistended. There is no rebound, voluntary guarding, or rigidity. : Deferred. No Booker. EXTREMITIES: Non-edematous and not cyanotic. No clubbing. Good capillary refill. SKIN: No skin breakdown. Vital Signs (last 8hr) Date Time Temp Pulse Resp B/P (MAP) Pulse Ox O2 Delivery O2 Flow Rate FiO2 04/13/24 12:01 98.2 111 25 140/74 93 N/C High Flow System 7.0 04/13/24 11:17 98 19 04/13/24 11:17 95 21 N/Cannula Oximizer Hi LPM 6.0 04/13/24 08:00 97.9 110 17 136/61 90 N/C High Flow System 7.0 LABS: Laboratory: Test 04/13/24 04:11 Range/Units White Blood Count 8.0 4.8-10.8 K/uL Red Blood Count 3.73 L 4.50-6.20 MIL/uL Hemoglobin 11.9 L 14.0-18.0 g/dL Hematocrit 35.7 L 42-54 % Mean Corpuscular Volume 95.7 79-99 fL Mean Corpuscular Hemoglobin 31.9 27.0-33.0 pg Mean Corpuscular Hemoglobin Concent 33.3 32.0-36.0 g/dL Red Cell Distribution Width 12.0 11.0-15.5 % Platelet Count 148 # 130-400 K/uL Mean Platelet Volume 10.6 H 7.5-10.5 fL Immature Granulocyte % (Auto) 0.9 0-1 % Neutrophils (%) (Auto) 89.5 H 40.0-77.0 % Lymphocytes (%) (Auto) 4.5 L 21.0-51.0 % Monocytes (%) (Auto) 5.0 3.0-13.0 % Eosinophils (%) (Auto) 0.0 0.0-8.0 % Basophils (%) (Auto) 0.1 0.0-5.0 % Neutrophils # (Auto) 7.2 1.8-7.7 K/uL Lymphocytes # (Auto) 0.4 L 1.0-4.8 K/uL Monocytes # (Auto) 0.4 0.1-1.0 K/uL Eosinophils # (Auto) 0.00 0.00-0.70 K/uL Basophils # (Auto) 0.01 0.00-0.20 K/uL Absolute Immature Granulocyte (auto 0.07 0-1 K/uL Nucleated Red Blood Cells 0.0 0.0-0.19 % Sodium Level 142 136-145 mmol/L Potassium Level 3.4 L 3.5-5.1 mmol/L Chloride Level 103 101-111 mmol/L Carbon Dioxide Level 33 H 21-32 mmol/L Blood Urea Nitrogen 37 H 7-18 mg/dL Creatinine 0.9 0.5-1.3 mg/dL Glomerular Filtration Rate Calc 84 >90 mL/min Random Glucose 133 H 70-105 mg/dL Total Calcium 8.3 L 8.5-10.1 mg/dL Current Medications Medications (Trade) Dose Ordered Sig/Luciana Route PRN Reason Start Time Stop Time Status Last Admin Dose Admin Acetaminophen (TYLenol 325MG TAB) 650 mg Q6H PRN PO MILD PAIN (1-3) 04/09/24 09:30 05/09/24 09:29 04/11/24 23:33 650 MG Albuterol (DUOneb) 1 UDVIAL Q6H IH 04/09/24 23:30 04/10/24 16:51 DC 04/10/24 15:18 1 UDVIAL Albuterol (DUOneb) 1 UDVIAL Q6H PRN IH SHORTNESS OF BREATH/ WHEZING 04/09/24 11:30 04/09/24 22:07 DC Albuterol (DUOneb) 1 UDVIAL [id number] IH 04/10/24 18:00 05/09/24 11:29 04/13/24 11:16 1 UDVIAL Albuterol (DUOneb) 1 udvial [id number] IH 04/07/24 14:00 04/07/24 21:21 DC 04/07/24 18:45 1 UDVIAL Aspirin (Aspirin 81mg Chew Tab) 81 mg DAILY PO 04/08/24 09:00 05/08/24 08:59 04/13/24 08:26 81 MG Azithromycin 250 ml @ 250 mls/hr Q24H IVPB 04/08/24 13:30 04/07/24 21:20 DC Azithromycin 250 ml @ 250 mls/hr Q24H STAT IVPB 04/07/24 12:13 04/07/24 13:12 DC 04/07/24 12:51 250 MLS/HR Benzocaine (Cepacol Sore Throat Lozenge) 1 each Q4H PRN MM SORE THROAT 04/09/24 11:00 05/09/24 10:59 04/11/24 16:10 1 EACH Budesonide (Pulmicort 0.5 Mg/2ml) 0.5 mg BIDRESP IH 04/08/24 06:00 05/08/24 05:59 04/13/24 06:16 0.5 MG Clopidogrel Bisulfate (plaVIX 75MG) 75 mg DAILY PO 04/08/24 09:00 05/08/24 08:59 04/13/24 08:26 75 MG Dexmedetomidine/ Sodium Chloride (PRECEdex 400MCG/ 100ML-NS) 400 mcg PROTOCOL IV 04/08/24 14:00 04/11/24 12:05 DC 04/11/24 02:28 400 MCG Diazepam (VALium 5 MG/ML 2 ML SYG) 5 mg ONCE STAT IV 04/07/24 11:19 04/07/24 11:21 DC 04/07/24 11:40 5 MG Diltiazem HCl (CARDIzem 60MG TAB) 30 mg TID PO 04/07/24 16:00 04/12/24 09:35 DC 04/12/24 08:56 30 MG Diltiazem HCl (CARDIzem 60MG TAB) 60 mg BID PO 04/12/24 21:00 05/12/24 20:59 04/13/24 08:26 60 MG Doxycycline Hyclate 250 ml @ 125 mls/hr Q12H IV 04/07/24 21:30 04/17/24 21:29 04/13/24 08:25 125 MLS/HR Folic Acid (FolVITE 5 MG/ML VIAL) 1 MG IV DAILY DAILY IV 04/10/24 09:00 04/10/24 08:35 DC Folic Acid (FolVITE 5 MG/ML VIAL) 1 mg DAILY IV 04/10/24 09:00 05/10/24 08:59 04/13/24 12:42 1 MG Furosemide (LASix 20MG VIAL) 20 mg Q12H IV 04/10/24 12:00 05/10/24 11:59 04/13/24 12:50 20 MG Furosemide (LASix 20MG VIAL) 20 mg Q12H IV 04/07/24 21:30 04/08/24 20:25 DC 04/08/24 08:17 20 MG Guaifenesin/ Dextromethorphan (RobiTUSSin DM 200/20MG 10ML) 10 ml Q4H PRN PO COUGH 04/10/24 14:30 05/10/24 14:29 04/13/24 08:43 10 ML Home Med (Home Medication) Vit C/E/Zn/ Coppr/Lutein/ Makenzie... BID PO 04/08/24 21:00 05/08/24 20:59 04/13/24 08:25 1 EACH Hydralazine HCl (APRESOLine 20MG INJ) 10 mg Q6H PRN IV ADMINISTER FOR SBP > 180 04/07/24 13:30 05/07/24 13:29 Ipratropium [place] (AtrovENT UD) 0.5 MG [id number] IH 04/08/24 00:00 04/09/24 11:11 DC 04/09/24 11:07 0.5 MG Magnesium Sulfate 50 ml @ 0 mls/hr PROTOCOL PRN IV hypomagnesemia 04/07/24 13:00 05/07/24 12:59 Methylprednisolone Sodium Succinate (Solu-medROL 40MG) 40 mg Q12H IVP 04/12/24 21:30 05/07/24 21:29 04/13/24 08:25 40 MG Methylprednisolone Sodium Succinate (Solu-medROL 40MG) 40 mg Q6H IVP 04/07/24 21:30 04/11/24 11:51 DC 04/11/24 09:20 40 MG Methylprednisolone Sodium Succinate (Solu-medROL 40MG) 40 mg Q8H IVP 04/11/24 17:30 04/12/24 11:11 DC 04/12/24 09:07 40 MG Methylprednisolone Sodium Succinate (Solu-medROL 125MG) 60 mg Q8H IVP 04/07/24 13:00 04/07/24 21:17 DC 04/07/24 20:55 60 MG Montelukast Sodium (SinguLAIR) 10 mg HS PO 04/07/24 21:30 05/07/24 21:29 04/12/24 21:11 10 MG Pantoprazole Sodium (PROTonix 40MG INJ) 40 mg DAILY IVP 04/07/24 13:00 05/07/24 12:59 04/13/24 08:26 40 MG Piperacillin Sod/ Tazobactam Sod (Zosyn 3.375gm+NS 50ml) 3.375 gm Q8H IVPB 04/07/24 15:00 04/17/24 14:59 04/13/24 15:15 3.375 GM Potassium Chloride 100 ml @ 100 mls/hr AD PRN IV POTASSIUM PROTOCOL 04/07/24 13:00 05/07/24 12:59 Potassium Chloride (K-Dur/Klor-Con 20meq) 20 meq AD PRN PO POTASSIUM PROTOCOL 04/07/24 13:00 04/09/24 11:29 DC 04/09/24 08:30 20 MEQ Potassium Chloride (KCl 10% Elixir 20meq/15ml) 20 meq AD PRN PO POTASSIUM PROTOCOL 04/07/24 13:00 05/07/24 12:59 04/13/24 08:33 20 MEQ Rivaroxaban (Xarelto) 2.5 mg BID PO 04/07/24 21:00 05/07/24 20:59 04/13/24 08:27 2.5 MG Sodium Chloride (NS 50ml) 50 ml AD IV 04/07/24 15:00 04/10/24 08:33 DC Thiamine HCl (Vitamin B-1) 100 mg DAILY IVP 04/10/24 09:00 05/10/24 08:59 04/13/24 08:25 100 MG DIAGNOSTICS / RADIOLOGY: [ ] SSESSMENT: Severe acute on chronic COPD exacerbation on BiPAP support Acute on chronic hypoxic respiratory failure needing BiPAP support Community acquired Pneumonia rule out History of hypotension hyperlipidemia atrial fibrillation on chronic anticoagulation PVD GERD PLAN: - Contiue IV Solu-Medrol, DuoNebs q.4 hours. - Continue IV Zosyn. - Continue duonebs - Continue budesonide - Continue spirometry - Continue daily peak flows - Continue xarelto - Continue diltiazem 30mg TID - Pulmonology consulted, appreciate recommendations Disposition: Pending clinical improvement of the discharge plan being coordinated by case management, [facility] facility versus JANETTE Sue MD Apr 13, 2024 15:53
--- NOTE | 2024-04-13 16:44 | NUR ---
PER PT HE RECEIVED A CALL FROM INSURANCE, D/C WILL NOT BE TODAY. POSS FOR TOMORROW.
[2024-04-14] VITALS (14 sets, daily range): BP systolic 135–162; BP diastolic 60–77; PULSE 79–121; RESP 17–23; TEMP 97.5–98.7; O2SAT 89–92
--- NOTE | 2024-04-14 09:20 | NUR ---
[facility] f/u Sw left message for Liam at [employer] and Leah at [facility] for status on auth. Waiting for call back
--- NOTE | 2024-04-14 09:39 | NUR ---
[facility]- PALLIATIVE NOTES REQUESTED Sw recd call from Leah at [facility]. requesting notes from conversation with pt and/or family on hospice. HOLLY faxed 04/13 note from Ravi Serrano and Melissa Baez 04/12/24 for review. Arabella BAEZ made aware
--- NOTE | 2024-04-14 12:08 | PN ---
[facility] PROGRESS NOTE Date of Service: Apr 14, 2024 Time of Service: 12:07 SUBJECTIVE: 04/10 Pt seen at bedside, no acute events overnight. He is still requiring 7L nasal cannula, will continue to wean as able. Continue current care. Further recommendations per pulmonology. 04/11 Pt seen at bedside, no acute events overnight. Pt continues with high O2 requirements, on 6L nasal cannula. He still has a prominent expiratory wheeze. Peak flow at 22% of expected. Will continue with nebulizers and systemic steroids. Pt to be referred to LTAC to continue care. Vitals and labs are otherwise relatively unremarkable. 04/12 the patient has been seen and examined during my rounding, comfortably in bed, remains on supplemental oxygen via nasal cannula, no chest pain, shortness shortness for breath, no nausea, no vomiting. 04/13 the patient has been seen and examined during my rounding, comfortably in bed, remains on supplemental oxygen via nasal cannula, no chest pain, shortness shortness for breath, no nausea, no vomiting. 04/14 the patient has been seen and examined in the intensive care unit, no acute events overnight, he remains comfortably sitting in the chair, on supplemental oxygen via nasal cannula. No chest pain, no shortness a breath. REVIEW OF SYSTEMS 12 point ROS negative unless noted in HPI PHYSICAL EXAM GENERAL APPEARANCE: The patient is awake, alert, and oriented, in no acute cardiopulmonary distress. NEUROLOGICAL: Cranial nerves II-XII grossly intact. Motor is 5/5 in bilateral upper and lower extremities proximal to distal. No sensory deficits. HEENT: Face is symmetric. Pupils are equal and reactive. Extraocular movements are intact. NECK: Supple. No JVD. No thyromegaly. No submental, submandibular, pre- /postauricular, occipital or supraclavicular lymphadenopathy. CHEST: Normal chest expansion. No Telemetry. LUNGS: Patient has wheezing present bilaterally. CARDIOVASCULAR: Regular. S1 and S2 normal. No appreciable rubs, murmurs or gallops. ABDOMEN: Soft, nontender, and nondistended. There is no rebound, voluntary guarding, or rigidity. : Deferred. No Booker. EXTREMITIES: Non-edematous and not cyanotic. No clubbing. Good capillary refill. SKIN: No skin breakdown. Vital Signs (last 8hr) Date Time Temp Pulse Resp B/P (MAP) Pulse Ox O2 Delivery O2 Flow Rate FiO2 04/14/24 11:40 136/60 04/14/24 11:20 108 18 04/14/24 11:00 98.8 116 23 91 N/C High Flow System 7.0 04/14/24 10:00 115 19 89 N/C High Flow System 7.0 04/14/24 09:00 114 23 87 N/C High Flow System 7.0 04/14/24 08:00 98.1 106 20 135/65 89 N/C High Flow System 7.0 04/14/24 07:00 88 19 93 N/C High Flow System 7.0 04/14/24 06:30 98 18 04/14/24 06:30 22 N/Cannula Oximizer Hi LPM 5.0 40 LABS: Laboratory: Test 04/13/24 04:11 Range/Units White Blood Count 8.0 4.8-10.8 K/uL Red Blood Count 3.73 L 4.50-6.20 MIL/uL Hemoglobin 11.9 L 14.0-18.0 g/dL Hematocrit 35.7 L 42-54 % Mean Corpuscular Volume 95.7 79-99 fL Mean Corpuscular Hemoglobin 31.9 27.0-33.0 pg Mean Corpuscular Hemoglobin Concent 33.3 32.0-36.0 g/dL Red Cell Distribution Width 12.0 11.0-15.5 % Platelet Count 148 # 130-400 K/uL Mean Platelet Volume 10.6 H 7.5-10.5 fL Immature Granulocyte % (Auto) 0.9 0-1 % Neutrophils (%) (Auto) 89.5 H 40.0-77.0 % Lymphocytes (%) (Auto) 4.5 L 21.0-51.0 % Monocytes (%) (Auto) 5.0 3.0-13.0 % Eosinophils (%) (Auto) 0.0 0.0-8.0 % Basophils (%) (Auto) 0.1 0.0-5.0 % Neutrophils # (Auto) 7.2 1.8-7.7 K/uL Lymphocytes # (Auto) 0.4 L 1.0-4.8 K/uL Monocytes # (Auto) 0.4 0.1-1.0 K/uL Eosinophils # (Auto) 0.00 0.00-0.70 K/uL Basophils # (Auto) 0.01 0.00-0.20 K/uL Absolute Immature Granulocyte (auto 0.07 0-1 K/uL Nucleated Red Blood Cells 0.0 0.0-0.19 % Sodium Level 142 136-145 mmol/L Potassium Level 3.4 L 3.5-5.1 mmol/L Chloride Level 103 101-111 mmol/L Carbon Dioxide Level 33 H 21-32 mmol/L Blood Urea Nitrogen 37 H 7-18 mg/dL Creatinine 0.9 0.5-1.3 mg/dL Glomerular Filtration Rate Calc 84 >90 mL/min Random Glucose 133 H 70-105 mg/dL Total Calcium 8.3 L 8.5-10.1 mg/dL Current Medications Medications (Trade) Dose Ordered Sig/Luciana Route PRN Reason Start Time Stop Time Status Last Admin Dose Admin Acetaminophen (TYLenol 325MG TAB) 650 mg Q6H PRN PO MILD PAIN (1-3) 04/09/24 09:30 05/09/24 09:29 04/11/24 23:33 650 MG Albuterol (DUOneb) 1 UDVIAL Q6H IH 04/09/24 23:30 04/10/24 16:51 DC 04/10/24 15:18 1 UDVIAL Albuterol (DUOneb) 1 UDVIAL Q6H PRN IH SHORTNESS OF BREATH/ WHEZING 04/09/24 11:30 04/09/24 22:07 DC Albuterol (DUOneb) 1 UDVIAL [id number] IH 04/10/24 18:00 05/09/24 11:29 04/14/24 11:18 1 UDVIAL Albuterol (DUOneb) 1 udvial [id number] IH 04/07/24 14:00 04/07/24 21:21 DC 04/07/24 18:45 1 UDVIAL Aspirin (Aspirin 81mg Chew Tab) 81 mg DAILY PO 04/08/24 09:00 05/08/24 08:59 04/14/24 09:14 81 MG Azithromycin 250 ml @ 250 mls/hr Q24H IVPB 04/08/24 13:30 04/07/24 21:20 DC Azithromycin 250 ml @ 250 mls/hr Q24H STAT IVPB 04/07/24 12:13 04/07/24 13:12 DC 04/07/24 12:51 250 MLS/HR Benzocaine (Cepacol Sore Throat Lozenge) 1 each Q4H PRN MM SORE THROAT 04/09/24 11:00 05/09/24 10:59 04/13/24 20:30 1 EACH Budesonide (Pulmicort 0.5 Mg/2ml) 0.5 mg BIDRESP IH 04/08/24 06:00 05/08/24 05:59 04/14/24 06:46 0.5 MG Clopidogrel Bisulfate (plaVIX 75MG) 75 mg DAILY PO 04/08/24 09:00 05/08/24 08:59 04/14/24 09:14 75 MG Dexmedetomidine/ Sodium Chloride (PRECEdex 400MCG/ 100ML-NS) 400 mcg PROTOCOL IV 04/08/24 14:00 04/11/24 12:05 DC 04/11/24 02:28 400 MCG Diazepam (VALium 5 MG/ML 2 ML SYG) 5 mg ONCE STAT IV 04/07/24 11:19 04/07/24 11:21 DC 04/07/24 11:40 5 MG Diltiazem HCl (CARDIzem 60MG TAB) 30 mg TID PO 04/07/24 16:00 04/12/24 09:35 DC 04/12/24 08:56 30 MG Diltiazem HCl (CARDIzem 60MG TAB) 60 mg BID PO 04/12/24 21:00 05/12/24 20:59 04/14/24 09:14 60 MG Doxycycline Hyclate 250 ml @ 125 mls/hr Q12H IV 04/07/24 21:30 04/17/24 21:29 04/14/24 09:13 125 MLS/HR Folic Acid (FolVITE 5 MG/ML VIAL) 1 MG IV DAILY DAILY IV 04/10/24 09:00 04/10/24 08:35 DC Folic Acid (FolVITE 5 MG/ML VIAL) 1 mg DAILY IV 04/10/24 09:00 05/10/24 08:59 04/14/24 09:15 1 MG Furosemide (LASix 20MG VIAL) 20 mg Q12H IV 04/10/24 12:00 05/10/24 11:59 04/13/24 23:07 20 MG Furosemide (LASix 20MG VIAL) 20 mg Q12H IV 04/07/24 21:30 04/08/24 20:25 DC 04/08/24 08:17 20 MG Guaifenesin/ Dextromethorphan (RobiTUSSin DM 200/20MG 10ML) 10 ml Q4H PRN PO COUGH 04/10/24 14:30 05/10/24 14:29 04/14/24 09:29 10 ML Home Med (Home Medication) Vit C/E/Zn/ Coppr/Lutein/ Makenzie... BID PO 04/08/24 21:00 05/08/24 20:59 04/13/24 08:25 1 EACH Hydralazine HCl (APRESOLine 20MG INJ) 10 mg Q6H PRN IV ADMINISTER FOR SBP > 180 04/07/24 13:30 05/07/24 13:29 Ipratropium [place] (AtrovENT UD) 0.5 MG [id number] IH 04/08/24 00:00 04/09/24 11:11 DC 04/09/24 11:07 0.5 MG Magnesium Sulfate 50 ml @ 0 mls/hr PROTOCOL PRN IV hypomagnesemia 04/07/24 13:00 05/07/24 12:59 Methylprednisolone Sodium Succinate (Solu-medROL 40MG) 40 mg Q12H IVP 04/12/24 21:30 05/07/24 21:29 04/14/24 09:14 40 MG Methylprednisolone Sodium Succinate (Solu-medROL 40MG) 40 mg Q6H IVP 04/07/24 21:30 04/11/24 11:51 DC 04/11/24 09:20 40 MG Methylprednisolone Sodium Succinate (Solu-medROL 40MG) 40 mg Q8H IVP 04/11/24 17:30 04/12/24 11:11 DC 04/12/24 09:07 40 MG Methylprednisolone Sodium Succinate (Solu-medROL 125MG) 60 mg Q8H IVP 04/07/24 13:00 04/07/24 21:17 DC 04/07/24 20:55 60 MG Montelukast Sodium (SinguLAIR) 10 mg HS PO 04/07/24 21:30 05/07/24 21:29 04/13/24 20:13 10 MG Pantoprazole Sodium (PROTonix 40MG INJ) 40 mg DAILY IVP 04/07/24 13:00 05/07/24 12:59 04/14/24 09:14 40 MG Piperacillin Sod/ Tazobactam Sod (Zosyn 3.375gm+NS 50ml) 3.375 gm Q8H IVPB 04/07/24 15:00 04/17/24 14:59 04/14/24 06:19 3.375 GM Potassium Chloride 100 ml @ 100 mls/hr AD PRN IV POTASSIUM PROTOCOL 04/07/24 13:00 05/07/24 12:59 Potassium Chloride (K-Dur/Klor-Con 20meq) 20 meq AD PRN PO POTASSIUM PROTOCOL 04/07/24 13:00 04/09/24 11:29 DC 04/09/24 08:30 20 MEQ Potassium Chloride (KCl 10% Elixir 20meq/15ml) 20 meq AD PRN PO POTASSIUM PROTOCOL 04/07/24 13:00 05/07/24 12:59 04/13/24 08:33 20 MEQ Rivaroxaban (Xarelto) 2.5 mg BID PO 04/07/24 21:00 05/07/24 20:59 04/14/24 09:14 2.5 MG Sodium Chloride (NS 50ml) 50 ml AD IV 04/07/24 15:00 04/10/24 08:33 DC Thiamine HCl (Vitamin B-1) 100 mg DAILY IVP 04/10/24 09:00 05/10/24 08:59 04/14/24 09:15 100 MG DIAGNOSTICS / RADIOLOGY: [ ] SSESSMENT: Severe acute on chronic COPD exacerbation on BiPAP support Acute on chronic hypoxic respiratory failure needing BiPAP support Community acquired Pneumonia rule out History of hypotension hyperlipidemia atrial fibrillation on chronic anticoagulation PVD GERD PLAN: - Contiue IV Solu-Medrol, DuoNebs q.4 hours. - Continue IV Zosyn. - Continue duonebs - Continue budesonide - Continue spirometry - Continue daily peak flows - Continue xarelto - Continue diltiazem 30mg TID - Pulmonology consulted, appreciate recommendations Disposition: Pending insurance approval for the patient to be discharge to [facility] facility with hospice services. JANETTE RUTLEDGE MD Apr 14, 2024 12:08
--- NOTE | 2024-04-14 12:19 | PN ---
[facility] PROGRESS NOTE Date Patient Seen: Apr 14, 2024 Time of Visit: 12:12 Supervising Physician: Lawrence Catalan Primary Care Physician: Jorge Bob MD Outpatient Specialists: Inpatient Consults: HERMINIA, PROBLEM LIST: Acute on chronic hypoxemic respiratory failure, POA (home o2 4L) Community-acquired pneumonia, POA Suspected acute CHF, POA End stage lung disease COPD exacerbation, POA Hyperlipidemia Hyperglycemia History of Atrial fibrillation on chronic anticoagulation w/ Xarelto PVD GERD Former smoker of 96 pack-years INTERVAL HISTORY: 04/08-Patient is awake alert and oriented x3. He has been keeping the BiPAP on due to he states "I&O like it". Patient is on Venturi mask with a FiO2 of 50% saturating 90%. Hemodynamically stable respiratory rate of 18 unlabored pulse of 80 afebrile. On ABG patient's pH 7.46 pCO2 of 37, PO2 of 52.3 bicarb 26.4 on FiO2 40%. WBCs 4.4 H&H 13.6/39.9 neutrophils 82.8. Sodium 135/97 creatinine 0.8 with GFR of 87 154 mg/dL. Offered Precedex drip for anxiety in order to leave BiPAP on. Patient verbalized agreement. Tolerated this afternoon BiPAP with Precedex. On microbiology blood cultures with no growth. 04/09-patient awake alert and oriented x3. He tolerated BiPAP for few hours 3-4 overnight with Precedex drip. Latest ABGs show pH of 7.45 pCO2 40 PO2 slightly improved 0.3 with a bicarb of 27.4. Patient currently on Venturi mask at 50% saturating 92%. Blood pressure 149/75 heart rate in the 90s, respiratory rate of 20 unlabored. Patient has been afebrile with a T-max of 97.9 and a T low of 97.2 in the last 24 hours. On laboratory WBCs are normal today with a H&H of 13.8/40.1 neutrophils are 89.8. Sodium 135 chloride 99 glucose 89 mg/dL. On chest x-ray this morning from interstitial markings are seen with superimposed infiltrates. We will continue with duo nebs q.6 hours Pulmicort treatments and Solu-Medrol 40 q.6 IV push for now we will wean as tolerated. 04/10 patient is awake alert oriented x3 on 6 L via nasal cannula saturating 90 %. He has been refusing his nebulizer treatments and ABGs this morning. Currently hemodynamically stable heart rate in the 70s respiratory rate of 19 unlabored. Patient has been afebrile this morning temperature was 96.8 on recheck 97.2. Patient with good urine output 1.6 L in last 24 hours. On laboratory H&H is 13.2/39.2 with a platelet count of [id number]. Chemistries sodium 135 chloride 99 BUN 21 creatinine 0.8 GFR of 87 glucose of 146 mg/dL BNP of 480. Lasix 20 mg q.12 IV started. On chest x-ray with increased pulmonary vascular congestion with bibasilar atelectasis. 04/11 patient is up in the chair not in acute distress, denies shortness of breath. He remains on high-flow nasal cannula at 7 L with sats 91%. Continue current setting, keep sats greater than 88%. Taper down steroids. Continue nebulizer. Continue antibiotic Zosyn and doxycycline. From pulm/ critical standpoint, okay to transfer to LTAC. 04/12 patient is awake alert oriented x3 sitting up at the side of the bed not in acute distress. Patient remains with the AFib with RVR up to 120, we can increase his diltiazem. Continue monitor hemodynamic. He has been given lab holiday today. Otherwise he remains on 6 L of oxygen support saturation oxygen is 90%. Otherwise he complained that he could not sleep last night because of frequent breathing treatments as well as IV stick. I Offered him options for his plan of care at this time given that he was reluctant to go to LTAC. Continuing current pace to recover though with his end-stage lung disease this is going to be very challenging versus a hospice at his current place at [facility], given his comorbidities, his life life expectancy will be less than 6 months. We will discuss this with his when she comes. Otherwise dg to PCCU. 04/13 patient is awake alert oriented x3 no acute event overnight patient remains on oxygen support at 7 L. saturation on oxygen is 90%. Heart rate is 110. T-max is 98.1. Respiratory rate is 17. Lab this morning is with remarkable potassium 3.[address]. After conversation with his , patient had decided for hospice. Case management is setting up for hospice at [facility]. 04/14 patient is alert and oriented, with no acute events reported overnight. He remains on oxygen support at 7 L/min, maintaining oxygen saturation at 91%. Vital signs are as follows: blood pressure 136/60, pulse 108 bpm, respiratory rate 18 breaths per minute, and temperature 98.8 F. The patient is clinically stable but continues to require high-flow oxygen for respiratory support. Given the overall prognosis and current care goals, the patient is being considered for transfer to hospice care at [facility], which may occur later today. The care team has discussed this plan with the patient and family. REVIEW OF SYSTEMS: Const: [No fever, fatigue, or weight changes] Eyes:[ no recent vision problems] ENT: [No congestion, ear pain, or sore throat] C/V: [no chest pain, palpitations or edema] Resp: [Yes for cough, congestion, wheezing and shortness of breath. Yes for phlegm. GI: [No abdominal pain, nausea, vomiting, constipation, or diarrhea] : [No incontinence of or dyuria] M/S: [No joint or pain swelling] Skin: [No rash] Neuro: [no headache, focal numbness, or weakness, dizziness or seizures] Psych: [no depression or anxiety] Heme: [no abnormal bruising or bleeding] Lymph: [no swollen glands] PHYSICAL EXAM: GENERAL: alert, weak, awake oriented x 3 HEENT: EOMI, Sclera non icteric, moist mucosa NECK: Supple, no JVD, trachea midline LUNGS: Wheezes sounds bilaterally. No wheezes HEART: Regular rate and rhythm. Normal S1 and S2, without murmurs ABD: Abdomen soft, nontender. Bowel sounds present EXT: No clubbing cyanosis or edema NEURO: Alert and oriented to person, follows commands Vital Signs (last 8hr) Date Time Temp Pulse Resp B/P (MAP) Pulse Ox O2 Delivery O2 Flow Rate FiO2 04/14/24 11:40 136/60 04/14/24 11:20 108 18 04/14/24 11:00 98.8 116 23 91 N/C High Flow System 7.0 04/14/24 10:00 115 19 89 N/C High Flow System 7.0 04/14/24 09:00 114 23 87 N/C High Flow System 7.0 11/15/24 08:00 98.1 106 20 135/65 89 N/C High Flow System 7.0 04/14/24 07:00 88 19 93 N/C High Flow System 7.0 04/14/24 06:30 98 18 04/14/24 06:30 22 N/Cannula Oximizer Hi LPM 5.0 40 LABS: Hematology Labs: Test 04/13/24 04:11 Range/Units White Blood Count 8.0 4.8-10.8 K/uL Red Blood Count 3.73 L 4.50-6.20 MIL/uL Hemoglobin 11.9 L 14.0-18.0 g/dL Hematocrit 35.7 L 42-54 % Mean Corpuscular Volume 95.7 79-99 fL Mean Corpuscular Hemoglobin 31.9 27.0-33.0 pg Mean Corpuscular Hemoglobin Concent 33.3 32.0-36.0 g/dL Red Cell Distribution Width 12.0 11.0-15.5 % Platelet Count 148 # 130-400 K/uL Mean Platelet Volume 10.6 H 7.5-10.5 fL Immature Granulocyte % (Auto) 0.9 0-1 % Neutrophils (%) (Auto) 89.5 H 40.0-77.0 % Lymphocytes (%) (Auto) 4.5 L 21.0-51.0 % Monocytes (%) (Auto) 5.0 3.0-13.0 % Eosinophils (%) (Auto) 0.0 0.0-8.0 % Basophils (%) (Auto) 0.1 0.0-5.0 % Neutrophils # (Auto) 7.2 1.8-7.7 K/uL Lymphocytes # (Auto) 0.4 L 1.0-4.8 K/uL Monocytes # (Auto) 0.4 0.1-1.0 K/uL Eosinophils # (Auto) 0.00 0.00-0.70 K/uL Basophils # (Auto) 0.01 0.00-0.20 K/uL Absolute Immature Granulocyte (auto 0.07 0-1 K/uL Nucleated Red Blood Cells 0.0 0.0-0.19 % Chemistry Labs: Test 04/13/24 04:11 Range/Units Sodium Level 142 136-145 mmol/L Potassium Level 3.4 L 3.5-5.1 mmol/L Chloride Level 103 101-111 mmol/L Carbon Dioxide Level 33 H 21-32 mmol/L Blood Urea Nitrogen 37 H 7-18 mg/dL Creatinine 0.9 0.5-1.3 mg/dL Glomerular Filtration Rate Calc 84 >90 mL/min Random Glucose 133 H 70-105 mg/dL Total Calcium 8.3 L 8.5-10.1 mg/dL DIAGNOSTICS / RADIOLOGY RESULTS: [ ] PLAN Wean steroids Start Lasix 20 mg IV push q.12 hours Covered empirically for community-acquired pneumonia with Zosyn and doxycycline. Given exposure of smoking for many years, patient has a developed COPD with exacerbation. Singulair 10 mg daily Follow respiratory cultures Maintain O2 sats above 88% Gi PPX with protonix due to steroids Influenza a and B negative, COVID-19 negative, Chest x-ray in the morning, wean off O2 as tolerated. we will continue with nebulizer treatments with duoneb Pulmicort, steroids. Patient to follow up as outpatient at pulmonary clinic in two weeks for PFTs after discharge, NEURO: Minimize central acting medications as possible. Fall Precautions. Well lighted room through the day and minimize interruptions through the night to prevent acute delirium. PULMONARY: Supplemental 02 as needed Titrate Fio2 to keep Spo2 > or = 88% DuoNebs and CPT as needed IS hourly while awake for pulmonary hygiene Out of bed to chair as tolerated VAP Bundle Vent/BIPAP Settings: BiPAP at 100% FiO2 10/5 rr18, wean O2 to maintain O2 sat above 88%. CARDIOVASCULAR: Follow hemodynamics. Titrate vasopressor to keep MAP >65 or systolic blood pressure >95mmHg Drips: NA LINES: piv GI & NUTRITION: Continue nutritional support Aspirations precautions Prokinetic agents and laxatives as needed KIDNEYS & ELECTROLYTES: Strict monitoring of intake and output Daily weights Avoid nephrotoxic agents Monitor electrolytes and replace as needed Goal urine output of 30mL/hr or 0.5mL/kg/hr Urine output: 1.2 L Fluid Balance: -410 mL ENDOCRINE: Maintain blood glucose between 100-180 at all times. Insulin sliding scale for blood glucose management INFECTIOUS DISEASE: Trend temperature. Russ-culture if febrile. Micro: [ ] Blood cultures Urine culture Respiratory culture Antibiotics: [ ] Zosyn Azithromycin HEMATOLOGY & COAGULATION: Monitor H&H. Keep Hgb > 7 Transfuse 1 unit of PRBC for Hgb < 7 Transfuse 1 pack of platelets of platelets < 20, 000 Watch for any signs and symptoms of bleeding SKIN: Pressure ulcer prevention per facility protocol Rehab: PT/OT Prophylaxis: GI: Protonix DVT: Patient on chronic anticoagulation with Xarelto Code Status: Full Resuscitation Disposition: PCCU Other: Total patient care time exceeds 35 minutes excluding all procedures. Case was discussed and seen with my supervising physician. The above plan was formulated and agreed upon. TA VALLES MD Apr 14, 2024 12:19 DARWIN MOSQUERA CNP Apr 14, 2024 12:44
--- NOTE | 2024-04-14 12:45 | PN ---
[facility] PROGRESS NOTE Date Patient Seen: Apr 14, 2024 Time of Visit: 12:44 Supervising Physician: Lawrence Catalan Primary Care Physician: Jorge Bob MD Outpatient Specialists: Inpatient Consults: HERMINIA- Dr. Sheriff PROBLEM LIST: Acute on chronic hypoxemic respiratory failure, POA (home o2 4L) Community-acquired pneumonia, POA Suspected acute CHF, POA End stage lung disease COPD exacerbation, POA Hyperlipidemia Hyperglycemia History of Atrial fibrillation on chronic anticoagulation w/ Xarelto PVD GERD Former smoker of 96 pack-years INTERVAL HISTORY: 04/08-Patient is awake alert and oriented x3. He has been keeping the BiPAP on due to he states "I&O like it". Patient is on Venturi mask with a FiO2 of 50% saturating 90%. Hemodynamically stable respiratory rate of 18 unlabored pulse of 80 afebrile. On ABG patient's pH 7.46 pCO2 of 37, PO2 of 52.3 bicarb 26.4 on FiO2 40%. WBCs 4.4 H&H 13.6/39.9 neutrophils 82.8. Sodium 135/97 creatinine 0.8 with GFR of 87 154 mg/dL. Offered Precedex drip for anxiety in order to leave BiPAP on. Patient verbalized agreement. Tolerated this afternoon BiPAP with Precedex. On microbiology blood cultures with no growth. 04/09-patient awake alert and oriented x3. He tolerated BiPAP for few hours 3-4 overnight with Precedex drip. Latest ABGs show pH of 7.45 pCO2 40 PO2 slightly improved 0.3 with a bicarb of 27.4. Patient currently on Venturi mask at 50% saturating 92%. Blood pressure 149/75 heart rate in the 90s, respiratory rate of 20 unlabored. Patient has been afebrile with a T-max of 97.9 and a T low of 97.2 in the last 24 hours. On laboratory WBCs are normal today with a H&H of 13.8/40.1 neutrophils are 89.8. Sodium 135 chloride 99 glucose 89 mg/dL. On chest x-ray this morning from interstitial markings are seen with superimposed infiltrates. We will continue with duo nebs q.6 hours Pulmicort treatments and Solu-Medrol 40 q.6 IV push for now we will wean as tolerated. 04/10 patient is awake alert oriented x3 on 6 L via nasal cannula saturating 90 %. He has been refusing his nebulizer treatments and ABGs this morning. Currently hemodynamically stable heart rate in the 70s respiratory rate of 19 unlabored. Patient has been afebrile this morning temperature was 96.8 on recheck 97.2. Patient with good urine output 1.6 L in last 24 hours. On laboratory H&H is 13.2/39.2 with a platelet count of [id number]. Chemistries sodium 135 chloride 99 BUN 21 creatinine 0.8 GFR of 87 glucose of 146 mg/dL BNP of 480. Lasix 20 mg q.12 IV started. On chest x-ray with increased pulmonary vascular congestion with bibasilar atelectasis. 04/11 patient is up in the chair not in acute distress, denies shortness of breath. He remains on high-flow nasal cannula at 7 L with sats 91%. Continue current setting, keep sats greater than 88%. Taper down steroids. Continue nebulizer. Continue antibiotic Zosyn and doxycycline. From pulm/ critical standpoint, okay to transfer to LTAC. 04/12 patient is awake alert oriented x3 sitting up at the side of the bed not in acute distress. Patient remains with the AFib with RVR up to 120, we can increase his diltiazem. Continue monitor hemodynamic. He has been given lab holiday today. Otherwise he remains on 6 L of oxygen support saturation oxygen is 90%. Otherwise he complained that he could not sleep last night because of frequent breathing treatments as well as IV stick. I Offered him options for his plan of care at this time given that he was reluctant to go to LTAC. Continuing current pace to recover though with his end-stage lung disease this is going to be very challenging versus a hospice at his current place at [facility], given his comorbidities, his life life expectancy will be less than 6 months. We will discuss this with his when she comes. Otherwise dg to PCCU. 04/13 patient is awake alert oriented x3 no acute event overnight patient remains on oxygen support at 7 L. saturation on oxygen is 90%. Heart rate is 110. T-max is 98.1. Respiratory rate is 17. Lab this morning is with remarkable potassium 3.[address]. After conversation with his , patient had decided for hospice. Case management is setting up for hospice at [facility]. 04/14 patient is alert and oriented, with no acute events reported overnight. He remains on oxygen support at 7 L/min, maintaining oxygen saturation at 91%. Vital signs are as follows: blood pressure 136/60, pulse 108 bpm, respiratory rate 18 breaths per minute, and temperature 98.8 F. The patient is clinically stable but continues to require high-flow oxygen for respiratory support. Given the overall prognosis and current care goals, the patient is being considered for transfer to hospice care at [facility], which may occur later today. The care team has discussed this plan with the patient and family. REVIEW OF SYSTEMS: Const: [No fever, fatigue, or weight changes] Eyes:[ no recent vision problems] ENT: [No congestion, ear pain, or sore throat] C/V: [no chest pain, palpitations or edema] Resp: [Yes for cough, congestion, wheezing and shortness of breath. Yes for phlegm. GI: [No abdominal pain, nausea, vomiting, constipation, or diarrhea] : [No incontinence of or dyuria] M/S: [No joint or pain swelling] Skin: [No rash] Neuro: [no headache, focal numbness, or weakness, dizziness or seizures] Psych: [no depression or anxiety] Heme: [no abnormal bruising or bleeding] Lymph: [no swollen glands] PHYSICAL EXAM: GENERAL: alert, weak, awake oriented x 3 HEENT: EOMI, Sclera non icteric, moist mucosa NECK: Supple, no JVD, trachea midline LUNGS: Wheezes sounds bilaterally. No wheezes HEART: Regular rate and rhythm. Normal S1 and S2, without murmurs ABD: Abdomen soft, nontender. Bowel sounds present EXT: No clubbing cyanosis or edema NEURO: Alert and oriented to person, follows commands Vital Signs (last 8hr) Date Time Temp Pulse Resp B/P (MAP) Pulse Ox O2 Delivery O2 Flow Rate FiO2 04/14/24 11:40 136/60 04/14/24 11:20 108 18 04/14/24 11:00 98.8 116 23 91 N/C High Flow System 7.0 04/14/24 10:00 115 19 89 N/C High Flow System 7.0 04/14/24 09:00 114 23 87 N/C High Flow System 7.0 04/14/24 08:00 98.1 106 20 135/65 89 N/C High Flow System 7.0 04/14/24 07:00 88 19 93 N/C High Flow System 7.0 04/14/24 06:30 98 18 04/14/24 06:30 22 N/Cannula Oximizer Hi LPM 5.0 40 LABS: Hematology Labs: Test 04/13/24 04:11 Range/Units White Blood Count 8.0 4.8-10.8 K/uL Red Blood Count 3.73 L 4.50-6.20 MIL/uL Hemoglobin 11.9 L 14.0-18.0 g/dL Hematocrit 35.7 L 42-54 % Mean Corpuscular Volume 95.7 79-99 fL Mean Corpuscular Hemoglobin 31.9 27.0-33.0 pg Mean Corpuscular Hemoglobin Concent 33.3 32.0-36.0 g/dL Red Cell Distribution Width 12.0 11.0-15.5 % Platelet Count 148 # 130-400 K/uL Mean Platelet Volume 10.6 H 7.5-10.5 fL Immature Granulocyte % (Auto) 0.9 0-1 % Neutrophils (%) (Auto) 89.5 H 40.0-77.0 % Lymphocytes (%) (Auto) 4.5 L 21.0-51.0 % Monocytes (%) (Auto) 5.0 3.0-13.0 % Eosinophils (%) (Auto) 0.0 0.0-8.0 % Basophils (%) (Auto) 0.1 0.0-5.0 % Neutrophils # (Auto) 7.2 1.8-7.7 K/uL Lymphocytes # (Auto) 0.4 L 1.0-4.8 K/uL Monocytes # (Auto) 0.4 0.1-1.0 K/uL Eosinophils # (Auto) 0.00 0.00-0.70 K/uL Basophils # (Auto) 0.01 0.00-0.20 K/uL Absolute Immature Granulocyte (auto 0.07 0-1 K/uL Nucleated Red Blood Cells 0.0 0.0-0.19 % Chemistry Labs: Test 04/13/24 04:11 Range/Units Sodium Level 142 136-145 mmol/L Potassium Level 3.4 L 3.5-5.1 mmol/L Chloride Level 103 101-111 mmol/L Carbon Dioxide Level 33 H 21-32 mmol/L Blood Urea Nitrogen 37 H 7-18 mg/dL Creatinine 0.9 0.5-1.3 mg/dL Glomerular Filtration Rate Calc 84 >90 mL/min Random Glucose 133 H 70-105 mg/dL Total Calcium 8.3 L 8.5-10.1 mg/dL DIAGNOSTICS / RADIOLOGY RESULTS: [ ] PLAN Wean steroids Start Lasix 20 mg IV push q.12 hours Covered empirically for community-acquired pneumonia with Zosyn and doxycycline. Given exposure of smoking for many years, patient has a developed COPD with exacerbation. Singulair 10 mg daily Follow respiratory cultures Maintain O2 sats above 88% Gi PPX with protonix due to steroids Influenza a and B negative, COVID-19 negative, Chest x-ray in the morning, wean off O2 as tolerated. we will continue with nebulizer treatments with duoneb Pulmicort, steroids. Patient to follow up as outpatient at pulmonary clinic in two weeks for PFTs after discharge, if desired Hospice appropriate NEURO: Minimize central acting medications as possible. Fall Precautions. Well lighted room through the day and minimize interruptions through the night to prevent acute delirium. PULMONARY: Supplemental 02 as needed Titrate Fio2 to keep Spo2 > or = 88% DuoNebs and CPT as needed IS hourly while awake for pulmonary hygiene Out of bed to chair as tolerated VAP Bundle Vent/BIPAP Settings: BiPAP at 100% FiO2 10/5 rr18, wean O2 to maintain O2 sat above 88%. CARDIOVASCULAR: Follow hemodynamics. Titrate vasopressor to keep MAP >65 or systolic blood pressure >95mmHg Drips: NA LINES: piv GI & NUTRITION: Continue nutritional support Aspirations precautions Prokinetic agents and laxatives as needed KIDNEYS & ELECTROLYTES: Strict monitoring of intake and output Daily weights Avoid nephrotoxic agents Monitor electrolytes and replace as needed Goal urine output of 30mL/hr or 0.5mL/kg/hr Urine output: 1.2 L Fluid Balance: -410 mL ENDOCRINE: Maintain blood glucose between 100-180 at all times. Insulin sliding scale for blood glucose management INFECTIOUS DISEASE: Trend temperature. Russ-culture if febrile. Micro: [ ] Blood cultures Urine culture Respiratory culture Antibiotics: [ ] Zosyn Azithromycin HEMATOLOGY & COAGULATION: Monitor H&H. Keep Hgb > 7 Transfuse 1 unit of PRBC for Hgb < 7 Transfuse 1 pack of platelets of platelets < 20, 000 Watch for any signs and symptoms of bleeding SKIN: Pressure ulcer prevention per facility protocol Rehab: PT/OT Prophylaxis: GI: Protonix DVT: Patient on chronic anticoagulation with Xarelto Code Status: Full Resuscitation Disposition: PCCU Other: Total patient care time exceeds 35 minutes excluding all procedures. Case was discussed and seen with my supervising physician. The above plan was formulated and agreed upon. DARWIN MOSQUERA [facility] Apr 14, 2024 12:45
--- NOTE | 2024-04-14 17:27 | NUR ---
REPORT CALLED TO [employer] AT [facility]. AWAITING CALLBACK FROM HOSPICE NURSE TO GIVE REPORT.
--- NOTE | 2024-04-14 17:46 | NUR ---
AURELIANO KNIGHT GIVEN REPORT.
--- NOTE | 2024-04-14 17:47 | NUR ---
EMS CALLED FOR PICKUP.
--- NOTE | 2024-04-14 20:27 | NUR ---
PATIENT PICKED UP BY EMS. ALL BELONGINGS WITH PATIENT. 2 BAGS WITH BELONGINGS INCLUDING HIS IPAD, [employer] CRM DEVELOPER, PHONE, GLASSES, MEDS. CLOTHING, TOILETRIES.
== END 2024-04-14 20:33 | disposition hospice, inpatient (51) | DRG 193 ==
LOC: EDH 10:56 → EDHIP 12:47 → 2CH 18:04
PROVIDERS: ADMIT Internal Medicine; ATTEND Internal Medicine
PROC: 5A09357 Assistance with Respiratory Ventilation, Less than 24 Consecutive Hours, Continuous Positive Airway Pressure (ICD-10-PCS; principal; 2024-04-07)
PROC: 5A09357 Assistance with Respiratory Ventilation, Less than 24 Consecutive Hours, Continuous Positive Airway Pressure (ICD-10-PCS; 2024-04-08)
PROC: 5A09357 Assistance with Respiratory Ventilation, Less than 24 Consecutive Hours, Continuous Positive Airway Pressure (ICD-10-PCS; 2024-04-09)
DX: J18.9 Pneumonia, unspecified organism (principal); J96.21 Acute and chronic respiratory failure with hypoxia; J44.1 Chronic obstructive pulmonary disease with (acute) exacerbation; J44.0 Chronic obstructive pulmonary disease with (acute) lower respiratory infection; J98.11 Atelectasis; Z20.822 Contact with and (suspected) exposure to COVID-19; R73.9 Hyperglycemia, unspecified; E78.00 Pure hypercholesterolemia, unspecified; F41.9 Anxiety disorder, unspecified; I10 Essential (primary) hypertension; I48.91 Unspecified atrial fibrillation; I73.9 Peripheral vascular disease, unspecified; J98.4 Other disorders of lung; K21.9 Gastro-esophageal reflux disease without esophagitis; Z51.5 Encounter for palliative care; Z79.01 Long term (current) use of anticoagulants; Z87.891 Personal history of nicotine dependence; Z90.49 Acquired absence of other specified parts of digestive tract; Z79.899 Other long term (current) drug therapy
CPT/HCPCS: 36415; 36600; 71045; 80048; 80053; 81003; 82550; 82803; 83036; 83605; 83880; 84145; 84443; 84484; 85025; 85378; 85610; 85730; 86140; 87040; 87086; 87426; 87804; 93005; 93306; 93970; 94640; 94660; 94664; 94667; 94668; 96375; G0378; J0456; J0696; J1940; J2470; J2543; J2919; J3360; J3411; J3490; J7030